=== PATIENT | male | born 1955 | race Caucasian/White ===

== ENCOUNTER 2020-06-17 20:48 | Emergency (ER) | payer OTHER ==
--- OUTSIDE RECORDS SUMMARY | 2020-06-17 20:50 | XMS REPORT | Clinical Summary ---
:1955 Author Organization [facility] Address [address] [place] [address] Care Team Providers Name Role Phone Flako Fernando MD Primary Care Provider Allergies No Known Allergies Medications Medication Sig Dispensed Refills Start Date End Date Status magnesium oxide 500 mg Take 1 tablet by 11 05/07/2016 Active tablet mouth once daily. levothyroxine 0 05/05/2016 Activ e (SYNTHROID, LEVOTHROID) 100 MCG tablet montelukast 0 05/28/2016 Active (SINGULAIR) 10 mg tablet simvastatin (ZOCOR) 40 0 05/05/2016 Active MG tablet coenzyme Q10 100 mg Take 100 mg by 0 Active capsule mouth daily. 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 Last Filed Vital Signs Not on file Plan of Treatment Health Maintenance Due Date Last Done Comments COLONOSCOPY SCREENING 2007 SHINGLES VACCINES (#1) 2007 INFLUENZA VACCINE 07/20/2020 Results Not on fileafter 06/17/2019 Advance Directives For more information, please contact: [phone] Type Date Recorded Patient Green Pipefitter Explanati on Advance Directives, Living Will and Medical Power of Rf Test Technician
--- NOTE | 2020-06-17 22:18 | ER ---
Nurse's Notes [facility] Name: Ismael Kennedy Age: 64 yrs Sex: Male : 1955 Arrival Date: 06/17/2020 Time: 20:51 Bed 13 Private MD: Diagnosis: Displaced fracture of distal phalanx of right lesser toe(s) Presentation: 06/17 21:13 Chief complaint: Patient states: "I dropped a ladder on my foot around noon, I just vc want to make sure nothing is broken.". Coronavirus screen: Client denies travel out of the [place] in the last 14 days. At this time, the client does not indicate any symptoms associated with coronavirus-19. Ebola Screen: No symptoms or risks identified at this time. Initial Sepsis Screen: Does the patient meet any 2 criteria? No. Patient's initial sepsis screen is negative. Does the patient have a suspected source of infection? No. Patient's initial sepsis screen is negative. Risk Assessment: Do you want to hurt yourself or someone else? Patient reports no desire to harm self or others. Onset of symptoms was June 17, 2020 at 12:00. 21:13 Method Of Arrival: Ambulatory vc 21:13 Acuity: AMALIA 4 vc Historical: - Allergies: 21:17 No Known Allergies; vc - Home Meds: 21:17 levothyroxine oral [Active]; omeprazole Oral [Active]; vc - PSHx: 21:17 LOWER BACK; DOUBLE HERNIA REPAIR; JOSÉ MIGUEL FEET RECONSTRUCTION; vc - Immunization history:: Adult Immunizations up to date. - Social history:: Smoking status: Patient denies any tobacco usage or history of. Screenin:30 Abuse screen: Denies threats or abuse. Nutritional screening: No deficits noted. vc Tuberculosis screening: No symptoms or risk factors identified. Fall Risk None identified. Assessment: 21:30 General: Appears in no apparent distress. uncomfortable, slender, well groomed, vc Behavior is calm, cooperative, appropriate for age. Pain: Complains of pain in right third toe, right fourth toe and right fifth toe Pain does not radiate. Pain currently is 7 out of 10 on a pain scale. at worst was 10 out of 10 on a pain scale. Quality of pain is described as burning, pressure, Pain began suddenly, Is continuous, Alleviated by rest. Neuro: Level of Consciousness is awake, alert, obeys commands, Oriented to person, place, time, situation, Appropriate for age. Cardiovascular: Patient's skin is warm and dry. Respiratory: Airway is patent Respiratory effort is even, unlabored, Respiratory pattern is regular, symmetrical. GI: No signs and/or symptoms were reported involving the gastrointestinal system. : No signs and/or symptoms were reported regarding the genitourinary system. Derm: Skin is Bruising that is dark purple, on right fourth toe. 21:49 Reassessment: Patient states he does not need any pain medicine at this moment, he vc would like to wait. 22:41 Reassessment: Patient and/or family updated on plan of care and expected duration. Pain vc level reassessed. Patient states pain is a little worse and would like the pain medicine now. 23:00 Reassessment: Patient waiting on xray disc then will be discharged. vc Vital Signs: 21:13 BP 132 / 72; Pulse 69; Resp 16; Temp 98.5; Pulse Ox 97% ; Weight 108.86 kg; Height 6 vc ft. 4 in. (193.04 cm); Pain 6/10; 21:57 BP 103 / 71; Pulse 63; Resp 16; Pulse Ox 98% on R/A; vc 23:00 BP 109 / 74; Pulse 59; Resp 16; Pulse Ox 98% on R/A; vc 21:13 Body Mass Index 29.21 (108.86 kg, 193.04 cm) vc ED Course: 20:51 Patient arrived in ED. bp1 21:14 Triage completed. vc 21:30 Poly Bob FNP-C [facility]. kb 21:30 David Campbell MD is Attending Physician. kb 21:30 Arm band placed on. vc 21:30 Bed in low position. Call light in reach. Side rails up X 1. Pulse ox on. NIBP on. Door vc closed. Warm blanket given. Ice pack to injury. 21:49 Judy Ibarra, RN is Primary Nurse. vc 21:50 Foot Right 3 View XRAY In Process Unspecified. EDMS 23:00 No provider procedures requiring assistance completed. Patient did not have IV access vc during this emergency room visit. Administered Medications: 22:41 Drug: [place] (7.5 mg-325 mg) 1 tabs {Note: RASS 0 alert and oriented.} Route: PO; vc 22:55 Follow up: Response: No adverse reaction; Medication administered at discharge. vc 22:41 Drug: KeFLEX 500 mg Route: PO; vc 22:55 Follow up: Response: No adverse reaction vc Outcome: 22:17 Discharge ordered by . newton 23:02 Condition: good vc 23:10 Discharged to home ambulatory. vc 23:10 Discharge instructions given to patient. 23:10 Patient left the ED. vc Signatures: Dispatcher [employer] EDMS Poly Bob, HOSPICE PATIENT CARE SECRETARY-C HOSPICE PATIENT CARE SECRETARY-Judy Yee RN RN Raine Ferraro Corrections: (The following items were deleted from the chart) 23:00 22:58 Reassessment: Patient and/or family updated on plan of care and expected vc duration. Pain level reassessed. Patient states pain is a little worse and would like the pain medicine now. vc
--- NOTE | 2020-06-17 22:18 | EDPHYS ---
Physician Documentation [facility] Name: Ismael Kennedy Age: 64 yrs Sex: Male : 1955 Arrival Date: 06/17/2020 Time: 20:51 Bed 13 Private MD: ED Physician David Campbell HPI: 06/17 22:15 This 64 yrs old Male presents to ER via Ambulatory with complaints of Toe kb Injury. 22:15 The patient presents with an injury, pain, swelling, tenderness. The complaints affect kb the right fifth toe and right fourth toe and right third toe. Context: The problem was sustained at home, resulted from a heavy object falling, ladder, the patient can fully bear weight, the patient is able to ambulate. Onset: The symptoms/episode began/occurred today. Modifying factors: The symptoms are alleviated by nothing, the symptoms are aggravated by nothing. Associated signs and symptoms: Pertinent positives: swelling, Pertinent negatives: calf tenderness, fever, nausea, numbness, rash, tingling, vomiting, warmth, weakness. Severity of symptoms: At their worst the symptoms were moderate, in the emergency department the symptoms are unchanged. The patient has not experienced similar symptoms in the past. The patient has not recently seen a physician. Pt had a ladder fall onto right third, forth and fifth toes today.. Historical: - Allergies: 21:17 No Known Allergies; vc - Home Meds: 21:17 levothyroxine oral [Active]; omeprazole Oral [Active]; vc - PSHx: 21:17 LOWER BACK; DOUBLE HERNIA REPAIR; JOSÉ MIGUEL FEET RECONSTRUCTION; vc - Immunization history:: Adult Immunizations up to date. - Social history:: Smoking status: Patient denies any tobacco usage or history of. ROS: 22:09 Constitutional: Negative for fever, chills, and weight loss, Cardiovascular: Negative kb for chest pain, palpitations, and edema, Respiratory: Negative for shortness of breath, cough, wheezing, and pleuritic chest pain, Abdomen/GI: Negative for abdominal pain, nausea, vomiting, diarrhea, and constipation, Back: Negative for injury and pain, Skin: Negative for injury, rash, and discoloration, Neuro: Negative for headache, weakness, numbness, tingling, and seizure. 22:09 MS/extremity: Positive for ecchymosis, pain, swelling, tenderness, of the right fifth toe and right fourth toe and right third toe. Exam: 22:09 Constitutional: This is a well developed, well nourished patient who is awake, alert, kb and in no acute distress. Head/Face: Normocephalic, atraumatic. Chest/axilla: Normal chest wall appearance and motion. Nontender with no deformity. No lesions are appreciated. Cardiovascular: Regular rate and rhythm with a normal S1 and S2. No gallops, murmurs, or rubs. Normal PMI, no JVD. No pulse deficits. Respiratory: Lungs have equal breath sounds bilaterally, clear to auscultation and percussion. No rales, rhonchi or wheezes noted. No increased work of breathing, no retractions or nasal flaring. Abdomen/GI: Soft, non-tender, with normal bowel sounds. No distension or tympany. No guarding or rebound. No evidence of tenderness throughout. Neuro: Awake and alert, GCS 15, oriented to person, place, time, and situation. Cranial nerves II-XII grossly intact. Motor strength 5/5 in all extremities. Sensory grossly intact. Cerebellar exam normal. Normal gait. 22:09 Musculoskeletal/extremity: Extremities: grossly normal except: noted in the right fourth toe: abrasion, ecchymosis, pain, swelling, tenderness, noted in the right fifth toe: abrasion, pain, swelling, ROM: limited active range of motion due to pain, in the right fifth toe and right fourth toe, Circulation is intact in all extremities. Sensation intact. Weight bearing: able to fully bear weight. Vital Signs: 21:13 BP 132 / 72; Pulse 69; Resp 16; Temp 98.5; Pulse Ox 97% ; Weight 108.86 kg; Height 6 vc ft. 4 in. (193.04 cm); Pain 6/10; 21:57 BP 103 / 71; Pulse 63; Resp 16; Pulse Ox 98% on R/A; vc 23:00 BP 109 / 74; Pulse 59; Resp 16; Pulse Ox 98% on R/A; vc 21:13 Body Mass Index 29.21 (108.86 kg, 193.04 cm) vc MDM: 21:31 Patient medically screened. kb 22:09 Data reviewed: vital signs, nurses notes. Data interpreted: Pulse oximetry: on room air kb is 98 %. Interpretation: normal. Counseling: I had a detailed discussion with the patient and/or guardian regarding: the historical points, exam findings, and any diagnostic results supporting the discharge/admit diagnosis, radiology results, the need for outpatient follow up, a orthopedic surgeon, to return to the emergency department if symptoms worsen or persist or if there are any questions or concerns that arise at home. 22:18 ED course: Pt has appt with ortho on Friday to follow up. kb 06/17 21:36 Order name: Foot Right 3 View XRAY kb 06/17 22:08 Order name: Post-op shoe; Complete Time: 22:55 kb Administered Medications: 22:41 Drug: [place] (7.5 mg-325 mg) 1 tabs {Note: RASS 0 alert and oriented.} Route: PO; vc 22:55 Follow up: Response: No adverse reaction; Medication administered at discharge. vc 22:41 Drug: KeFLEX 500 mg Route: PO; vc 22:55 Follow up: Response: No adverse reaction vc Disposition: 06/18 06:14 Co-signature as Attending Physician, David Campbell MD. [email or web address] Disposition: 06/17/20 22:17 Discharged to Home. Impression: Displaced fracture of distal phalanx of right lesser toe(s). - Condition is Stable. - Discharge Instructions: Toe Fracture, [id number]. - Prescriptions for Keflex 500 mg Oral Capsule - take 1 capsule by ORAL route every 8 hours for 10 days; 30 capsule. - Medication Reconciliation Form, Thank You Letter, Antibiotic Education, Prescription Opioid Use form. - Follow up: Private Physician; When: 2 - 3 days; Reason: Recheck today's complaints, Continuance of care, Re-evaluation by your physician. Follow up: Emergency Department; When: As needed; Reason: Worsening of condition. Signatures: Dispatcher [employer] EDPoly Parks FNP-C FNP-Ckb Calcote, Vanessa, RN RN David Montano MD MD [email or web address] Corrections: (The following items were deleted from the chart) 06/17 23:10 22:17 06/17/2020 22:17 Discharged to Home. Impression: Displaced fracture of distal vc phalanx of right lesser toe(s). Condition is Stable. Forms are Medication Reconciliation Form, Thank You Letter, Antibiotic Education, Prescription Opioid Use. Follow up: Private Physician; When: 2 - 3 days; Reason: Recheck today's complaints, Continuance of care, Re-evaluation by your physician. Follow up: Emergency Department; When: As needed; Reason: Worsening of condition. kb
[2020-06-17] MEDS ORDERED: CEPHALEXIN 250 MG CAP ONE (22:30)
[2020-06-17] MEDS ORDERED: HYDROCODONE/APAP 7.5/325 MG TAB ONE (22:49)
--- NOTE | 2020-06-18 08:44 | RAD REPORT ---
EXAM DESCRIPTION: RAD - Foot Right 3 View - 06/17/2020 9:50 pm CLINICAL HISTORY: PAIN, blunt force trauma to the foot, pain not further localized COMPARISON: No comparisons FINDINGS: Comminuted fracture is present at the fourth distal phalanx. Multiple small fracture fragm ents are present without significant distraction or angulation deformity. Cortical changes along the lateral margin of the fifth distal phalanx may be from remote trauma. No additional acute fracture sites confirmed. Hardware is in place from prior first metatarsal surger y. Patient has degenerative change at the first MTP joint. No erosive or destructive bone process. Hein rdware is in place from remote calcaneus fracture repair. Degenerative change present at the tibiotal ar joint space. Mild soft tissue swelling is present. No foreign body. IMPRESSION: Comminuted fracture fourth distal phalanx.
== END 2020-06-17 23:10 | disposition home or self-care (01) ==
LOC: ER 20:48
DX: S92.531A Displaced fracture of distal phalanx of right lesser toe(s), initial encounter for closed fracture (principal); W22.8XXA Striking against or struck by other objects, initial encounter; Y92.009 Unspecified place in unspecified non-institutional (private) residence as the place of occurrence of the external cause; Y93.9 Activity, unspecified
CPT/HCPCS: 99283

== ENCOUNTER 2021-06-02 07:12 | Observation (INO) | payer OTHER ==
--- OUTSIDE RECORDS SUMMARY | 2021-06-02 07:15 | XMS REPORT | Continuity of Care Document ---
:1955 Author Organization [facility] t Address [address] [place] [address] Care Team Providers Name Role Phone Nicola EDWARDS Primary Care Physician Unavailable [facility] Attending Clinician Unavailable Katina ROE, L. Attending Clinician MD KATINA L. Attending Clinician Unavailable Zora Osborn Attending Clinician MD KATINA L. Admitting Clinician Unavailable Payers Payer Name Policy Type Policy Effective Date Expiration Date [facility] ce Number AETNAAETNA PPO [id number] 2000 [facility] OPEN 00:00:00 Hospital [id number] 2000-Present PPO Problems Condition Condition Condition Status Onset Resolution Last Treating Co mments Source Name Details Category Date Date Treatment Clinician Date INCISE Diagnosis Active 2019-102020-09-27 Mem oria FINGER 1-25 04:15:00 l TENDON INCISE 00:00: Ren CARPAL FINGER 00 TUNNEL TENDON RIGH CARPAL TUNNEL RIGH Active 09/13/2020 [facility] [place] UNK Diagnosis Active 2019-102020-09-22 Mem oria 1-25 09:39:00 l UNK 00:00: Ren 00 Active 09/13/2020 [facility] [place] CARPAL Diagnosis Active 2019-102020-08-29 Mem oria TUNNEL 0-30 12:25:00 l RELEASE, CARPAL 00:00: Olaf n LEFT TUNNEL 00 RELEASE, LEFT Active 08/18/2020 [facility] Ren M79.632 - Diagnosis Active 2020-06-28 Memoria PAIN IN 06-20 12:51:00 l LEFT M79.632 00:01: Ren FOREARM - PAIN IN 00 R22 - "LO LEFT FOREARM R22 - "LO Active 06/20/2020 JOHNNY FALLOND [facility] 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 Family History Family Member Diagnosis Comments Start Date Stop Date Source Natural father Rectal cancer [facility] Social History Social Habit Start Date Stop Date Quantity Comments Source Social History 2020-09-26 2020-09-26 [facility] denita 22:06:41 22:06:41 Alcohol intake 2016-09-26 2016-09-26 Current [facility] 00:00:00 00:00:00 non-drinker of Hospital alcohol (finding) Sex Ass[birth year] At [birth year] [facility] 00:00[facility]00 [facility]00 [facility] Smoking Status Start Date Stop Date Source [facility] smoker [facility] Medications Ordered Filled Start Stop Current Ordering Indication Dosage Frequency Signature Comments Components Source Medication Medication Date Date Medication? Clinician (SIG) Name Name sodium,pota Yes Use as Meth jonna ssium,mag 10-[address] sulfates 00:00: Hospita (Suprep 00 l Bowel Prep Kit) 17.5-3.13-1 .6 gram recon soln midazolam 2019-10 No Route: IV, Me moria (ANES) 11-27 Drug form: l 21:09: SOLN, [place] 00 ONCE, Stop date: 09/26/20 15:09:00 DISCHARGE DOOR OPERATOR fentaNYL 2019-10 No Route: IV, Mem oria (ANES) 11-27 Drug form: l 21:09: INJ, ONCE, Ren 00 Stop date: 09/26/20 15:09:00 DISCHARGE DOOR OPERATOR ceFAZolin 2019-10 No Route: IV, Me moria (ANES) 11-27 Drug form: l 21:09: INJ, ONCE, Ren 00 Stop date: 09/26/20 15:09:00 DISCHARGE DOOR OPERATOR propofol 2019-10 No Route: IV, Mem oria (ANES) 11-27 Drug form: l 21:09: INJ, ONCE, Ren Stop date: 09/26/20 15:09:00 DISCHARGE DOOR OPERATOR ondansetron 2019-10 No Route: IV, Memoria (ANES) 2-08 Drug form: l 21:09: INJ, ONCE, Ren 00 Stop date: 09/26/20 15:09:00 DISCHARGE DOOR OPERATOR Lactated 2019-10 No Route: IV, Mem oria Ringers 2-08 Total l Injection 20:20: Volume: Sara nn IV (ANES) 00 1,000, 1000 mL Start date: 09/26/20 14:20:00 DISCHARGE DOOR OPERATOR, Stop date: 09/26/20 15:20:00 DISCHARGE DOOR OPERATOR Calcium 2019-10 No 1,000 mL, Memor ia Chloride 208 Rate: 75 l 0.0014 19:43: ml/hr, MEQ/ML / 00 Infuse Potassium over: 13.3 Chloride hr, Route: 0.004 IV, Dosing MEQ/ML / Weight Sodium 112.318 Chloride kg, Total 0.103 Volume: MEQ/ML / 1,000, Sodium Start Lactate date: 0.028 09/26/20 MEQ/ML 13:43:00 Injectable DISCHARGE DOOR OPERATOR, Solution Duration: 30 day, Stop date: 10/26/20 13:42:00 DISCHARGE DOOR OPERATOR, 2.46, m2, 0 ceFAZolin 2019-10 No Route: IV, Me moria (ANES) 1- Drug form: l 21:40: INJ, ONCE, [place] 00 Stop date: 08/29/20 15:40:00 DISCHARGE DOOR OPERATOR fentaNYL 2019-10 No Route: IV, Mem oria (ANES) 1-10 Drug form: l 21:40: INJ, ONCE, Ren 00 Stop date: 08/29/20 15:40:00 DISCHARGE DOOR OPERATOR propofol 2019-10 No Route: IV, Mem oria (ANES) 1-10 Drug form: l 21:40: INJ, ONCE, [place] Stop date: 08/29/20 15:40:00 DISCHARGE DOOR OPERATOR ondansetron 2019-10 No Route: IV, Memoria (ANES) 1- Drug form: l 21:40: INJ, ONCE, [place] 00 Stop date: 08/29/20 15:40:00 DISCHARGE DOOR OPERATOR midazolam 2019-10 No Route: IV, Me moria (ANES) 1-10 Drug form: l 21:37: SOLN, Ren 00 ONCE, Stop date: 08/29/20 15:37:00 DISCHARGE DOOR OPERATOR Lactated 2020-1 No Route: IV, Mem oria Ringers 1-10 Total l Injection 20:30: Volume: Sara nn IV (ANES) 00 1,000, 1000 mL Start date: 08/29/20 14:30:00 DISCHARGE DOOR OPERATOR, Stop date: 08/29/20 15:30:00 DISCHARGE DOOR OPERATOR Calcium 2019- No 1,000 mL, Memor ia Chloride 1-10 Rate: 75 l 0.0014 18:59: ml/hr, Ren MEQ/ML / 00 Infuse Potassium over: 13.3 Chloride hr, Route: 0.004 IV, Dosing MEQ/ML / Weight Sodium 109.091 Chloride kg, Total 0.103 Volume: MEQ/ML / 1,000, Sodium Start Lactate date: 0.028 08/29/20 MEQ/ML 12:59:00 Injectable DISCHARGE DOOR OPERATOR, Solution Duration: 30 day, Stop date: 09/28/20 12:58:00 DISCHARGE DOOR OPERATOR, 2.43, m2, 0 Sodium 2019- No 1,000 mL, Memori a Chloride -10 Rate: 75 l 0.9% IV 18:59: ml/hr, Ren 1,000 mL 00 Infuse over: 13.3 hr, Route: IV, Dosing Weight 109.091 kg, Total Volume: 1,000, Start date: 08/29/20 12:59:00 DISCHARGE DOOR OPERATOR, Duration: 30 day, Stop date: 09/28/20 12:58:00 DISCHARGE DOOR OPERATOR, 2.43, m2, 0 BAXYL 2019- Yes BAXYL, 1/2 Memori a 03 TEASPOON, l 17:33: PO, Daily, Ren 00 Refill(s) 0 PROSTATE 2019- Yes PROSTATE Memor ia SUPPORT 03 SUPPORT, 2 l 17:32: tab, PO, [place] 00 Every Other Day, Refill(s) 0 KRILL OIL 2019-10 Yes KRILL OIL, Me moria 03 500 mg =, l 17:31: PO, Daily, Ren 00 Refill(s) 0 Calcium 2019- Yes 2 tab, Memoria Citrate 03 CHEW, l 2380 MG / 17:30: Daily, 0 Herm jana Cholecalcif 00 Refill(s) omaira 400 UNT Chewable Tablet [Calcet] Vitamin D3 2019-10 Yes 125 Memoria 1-03 microgram, l 17:29: PO, Daily, [place] 00 0 Refill(s) Aspirin 81 2019-10 Yes 81 mg = 1 Me moria MG Chewable 1-03 tab, CHEW, l Tablet 17:29: Daily, 0 Ren 00 Refill(s) biotin 5000 2019-10 Yes 5,000 Memor ia mcg oral 1-03 microgram l tablet, 17:27: = 1 tab, Olaf n disintegrat 00 PO, Daily, ing 0 Refill(s) omeprazole 2019-10 Yes 40 mg = 1 Me moria 40 mg oral 1-03 cap, PO, l delayed 17:26: Daily, 0 Olaf n release 00 Refill(s) capsule levothyroxi 2019-10 Yes 100 Memori a ne 100 mcg 1-03 microgram l (0.1 mg) 17:26: = 1 tab, Sara nn oral tablet 00 PO, Daily, 0 Refill(s) Probiotic 2019-10 Yes 1 cap, PO, Me moria Formula -03 Daily, 0 l 17:26: Refill(s) [place] 00 sodium,pota 2016-10- No Use as Met hodi ssium,mag 10-[address] sulfates 00:00: 00:00 Hospita (SUPREP 00 :00 l BOWEL PREP KIT) 17.5-3.13-1 .6 gram recon soln omeprazole Yes TAKE 1 Metho di (PriLOSEC) 9-[address] 40 MG 00:00: DAILY Hospita capsule 00 l coenzyme 2015-10 Yes 100mg QD Take 100 Meth jonna Q10 100 mg 2-[address] capsule 20:19: mouth Hospita 08 daily. l montelukast Yes Method i (SINGULAIR) 8-09 st 10 mg 00:00: Hospita tablet 00 l magnesium Yes 1{tbl} QD Take 1 Meth jonna oxide 500 7-[address] mg tablet 00:00: mouth once Ho spita 00 daily. l levothyroxi Yes Method i ne 7-17 st (SYNTHROID, 00:00: Hospit a LEVOTHROID) 00 l 100 MCG tablet simvastatin 2016-0 Yes Method i (ZOCOR) 40 7-17 st MG tablet 00:00: Hospita 00 l Vital Signs Vital Name Observation Time Observation Value Comments Source Respitory Rate 2020-09-26 21:45:00 Memori al Ren Systolic (mm Hg) 2020-09-26 21:45:00 Jason rial Ren Diastolic (mm Hg) 2020-09-26 21:45:00 Mem orial [place] Respitory Rate 2020-09-26 21:30:00 Memori al [place] Systolic (mm Hg) 2020-09-26 21:30:00 Jason rial [place] Diastolic (mm Hg) 2020-09-26 21:30:00 Mem orial [place] Respitory Rate 2020-09-26 21:15:00 Memori al [place] Systolic (mm Hg) 2020-09-26 21:15:00 Jason rial [place] Diastolic (mm Hg) 2020-09-26 21:15:00 Mem orial Ren Height 2020-09-22 16:01:00 193.04 cm [facility] [place] Weight 2020-09-22 16:01:00 [facility] Ren BMI Calculated 2020-09-22 16:01:00 Memori al Ren Height 2020-09-19 22:02:00 193.04 cm [facility] Ren Weight 2020-09-19 22:02:00 [facility] [place] BMI Calculated 2020-09-19 22:02:00 Memori al [place] Respitory Rate 2020-08-29 22:15:00 Memori al [place] Systolic (mm Hg) 2020-08-29 22:15:00 Jason rial [place] Diastolic (mm Hg) 2020-08-29 22:15:00 Mem orial [place] Respitory Rate 2020-08-29 22:00:00 Memori al Ren Systolic (mm Hg) 2020-08-29 22:00:00 Jason rial Ren Diastolic (mm Hg) 2020-08-29 22:00:00 Mem orial [place] Respitory Rate 2020-08-29 21:45:00 Memori al Ren Systolic (mm Hg) 2020-08-29 21:45:00 Jason rial Ren Diastolic (mm Hg) 2020-08-29 21:45:00 Mem orial Ren Height 2020-08-22 16:44:00 193.04 cm [facility] [place] Weight 2020-08-22 16:44:00 [facility] BMI Calculated 2020-08-22 16:44:00 Yudi Wrightann Procedures Procedure Date / Time Performed Performing Clinician Zhane colindres SURGICAL PATHOLOGY 2020-11-17 18:34:00 Bethany Rojo Metho [facility] REQUEST COVID-19 QUALITATIVE 2020-11-13 19:59:00 Bethany Rojo [facility] RT-PCR Carpal tunnel release [facility] Plan of Care Planned Activity Planned Date Details Comments Source Future Scheduled Test COVID-19 VACCINE (1) [facility] [code = COVID-19 VACCINE (1)] Future Scheduled Test Hepatitis C screening [facility] (procedure) [code = 979784063] Future Scheduled Test COLONOSCOPY SCREENING [facility] [code = COLONOSCOPY SCREENING] Future Scheduled Test SHINGLES VACCINES (#1) [facility] [code = SHINGLES VACCINES (#1)] Future Scheduled Test INFLUENZA VACCINE [code [facility] = INFLUENZA VACCINE] Future Scheduled Test GASTROSCOPY (EGD) [code [facility] = GASTROSCOPY (EGD)] Encounters Start End Encounter Admission Attending Care Care Encounter Source Date/Time Date/Time Type Type Clinicians Facility Department ID 2020-12-08 2020-12-08 Refsonia Murphy, 1.2.840.1 [id number] Methodi 00:00:00 00:00:[address] 3.430.2.7 Hospit a .3.461924 l .8 2020-11-17 2020-11-17 Lab Katina 1.2.840.1 [id number] Methodi 11:32:28 11:37:28 Bethany Mayfield 82339.1.1 189 s t 3.430.2.7 Hospit a .3.768872 l .8 2020-11-17 2020-11-17 Outpatient KATINA [facility] [id number] [place] 00:00:00 00:00:00 BETHANY [address] 2020-11-16 2020-11-16 Telephone Jessie Rojo.2.840.1 [id number] Methodi 00:00:00 00:00:00 Bethany [place]field 08666.1.1 059 s t 3.430.2.7 Hospit a .3.779851 l .8 2020-11-13 2020-11-13 Lab Katina, 1.2.840.1 [id number] Methodi 13:33:58 13:48:58 Bethany Mayfield 91400.1.1 631 s t 3.430.2.7 Hospit a .3.755446 l .8 2020-11-13 2020-11-13 Outpatient KATINA, [facility] [id number] [place] 00:00:00 00:00:00 BETHANY [address] 2020-11-13 2020-11-13 Travel 1.2.840.1 1.2.780.914 [id number] Methodi 00:00:00 00:00:[address] 3.430.2.7 0.2.7.3.698 spita .3.760712 084.8 l .8 2020-10-31 2020-10-31 Telephone Carlosmagi, 1.2.840.1 [id number] Methodi 00:00:00 00:00:00 Bethany [place]field 46808.1.1 743 s t 3.430.2.7 Hospit a .3.822765 l .8 2020-10-25 2020-10-25 Telephone Carlosmagi, 1.2.840.1 [id number] Methodi 00:00:00 00:00:00 Bethany [place]field 09170.1.1 535 s t 3.430.2.7 Hospit a .3.571347 l .8 2020-10-25 2020-10-25 Telephone Carlosmagi, 1.2.840.1 [id number] Methodi 00:00:00 00:00:00 Bethany [place]field 34154.1.1 606 s t 3.430.2.7 Hospit a .3.273504 l .8 2020-10-25 2020-10-25 Travel 1.2.840.1 1.2.392.729 [id number] Methodi 00:00:00 00:00:[address] 3.430.2.7 0.2.7.3.698 Ho spita .3.544474 084.8 l .8 2020-10-23 2020-10-23 Telephone Katina, 1.2.840.1 [id number] Methodi 00:00:00 00:00:00 Bethany [place]field 26805.1.1 289 s t 3.430.2.7 Hospit a .3.796040 l .8 2020-10-19 2020-10-19 Telephone Katina, 1.2.840.1 [id number] Methodi 00:00:00 00:00:00 Bethany Mayfield 91132.1.1 948 s t 3.430.2.7 Hospit a .3.771467 l .8 2020-09-26 2020-09-26 [facility] [id number] Memoria 17:23:00 21:59:00 Surgery r [place] 01 [facility] 2020-09-26 2020-09-26 Outpatient Mansour, [facility] [id number] 11:23:00 15:59:[address] 2020-09-26 2020-09-26 Outpatient Mansour, [facility] [id number] 14:30:00 14:30:00 [place] 2020-09-26 2020-09-26 Outpatient MHBL MHBL 7501 MHBL 11:23:00 11:23:00 2020-08-29 2020-08-29 Day [facility] [id number] Memoria 18:19:00 22:18:00 Surgery r [place] 00 [facility] 2020-08-29 2020-08-29 Outpatient Mansour, [facility]PL MHPL [id number] 12:19:00 16:18:[address] 2020-08-29 2020-08-29 Outpatient Mansour, [facility] [id number] 13:30:00 13:30:[address] 2020-08-29 2020-08-29 Outpatient MHBL MHBL 7500 MHBL 12:19:00 12:19:00 2020-06-28 2020-06-29 Outpt Diag nullFlavo [facility] [id number] Memoria 17:16:00 04:59:00 Services r Outpatient 00 l Imaging Ren [place] 2020-06-28 2020-06-28 Outpatient Anurag, OIP OIP [id number] 12:16:00 23:59:00 Vick 00 [place] Results Test Description Test Time Test Comments Results Result Comments Source Surgical pathology request 2020-11-20 17:09:49 Test Item Value Reference Range Interpretation Comme nts Case number (test code = 3575218) [id number] Surgical pathology report (test code = See link below for PDF Lab R eport 1945) Result status (test code = 0962301) This is Final Report for [id number] 2096-2 [id number] 02:19:23 Test Item Value Reference Range Interpretation Comments Interpretation (test code = 3510599) COVID-19 qualitative RT-PCR Not-Detected Not-Detected result (test code = 15176-5) COVID-19 qualitative RT-PCR See link below for (test code = 7070) PDF [facility] RNA [Presence] in Respiratory specimen by BRIAN with probe [id number] 20:18:56 Test Item Value Reference Range Interpretation Comments SARS-CoV-2 (COVID-19) RNA Not detected Not-Detected [Presence] in Respiratory specimen by BRIAN with probe detection (test code = 97277-5) [id number] 15:59:00Not Detected *NA*(09/22/20 9:59 AM)[facility] [id number] 15:32:00Not Detected (08/25/20 9:32 AM)[facility]
[2021-06-02] MEDS ORDERED: dexAMETHasone 10 MG/ML VIAL ONE (09:32)
[2021-06-02 09:46] LABS: Urine Blood Trace-intact (Negative); Urine Glucose Trace (Negative); Urine Protein 1+ (Negative)
[2021-06-02 09:51] LABS: Absolute Lymphocytes (CBC) 0.2 K/uL (0.7-4.9); Basophils % 0.2 % (0-1.3); Lymphocytes % 5.3 % (15.3-44.8); MPV 9.9 fL (7.6-11.3); RBC Red Blood Cell Count 5.59 M/uL (4.33-5.43)
--- NOTE | 2021-06-02 10:04 | RAD REPORT ---
EXAM DESCRIPTION: RAD - Chest Single View - 06/02/2021 9:09 am CLINICAL HISTORY: SOB, COVID positive COMPARISON: October 2015 TECHNIQUE: AP portable chest image was obtained 06/02/2021 9:09 am . FINDINGS: Focal airspace opacification is seen in the lower left lung field and there is some mild a irspace opacification on the right. No failure or volume overload. Findings are consistent with a mil d COVID-19 pneumonia. Heart and vasculature are normal. No measurable pleural effusion and no pneumothorax. No acute bony abnormality seen. No acute aortic findings suspected. IMPRESSION: Mild COVID-19 pneumonia pattern, most pronounced in the left base.
[2021-06-02 10:07] LABS: Protime INR 1.14
[2021-06-02] MEDS ORDERED: ACETAMINOPHEN 500 MG TAB ONE ×2 (10:13→22:21)
[2021-06-02] MEDS ORDERED: HYDROCODONE/CHLORPHEN 5 ML/OSYR ONE (10:14)
[2021-06-02 10:38] LABS: ALT/SGPT 77 U/L (12-78); AST/SGOT 58 U/L (15-37); Albumin 3.5 g/dL (3.4-5.0); Alkaline Phosphatase 67 U/L (45-117); BUN Blood Urea Nitrogen 24 mg/dL (7-18); Bicarbonate 26 mmol/L (21-32); Bilirubin Direct 0.4 mg/dL (0-0.2); Bilirubin Total 0.7 mg/dL (0.2-1.0); Ferritin 955.9 ng/mL (26-388); Glucose Level 132 mg/dL (74-106); Lipase 315 U/L (73-393); Potassium 3.5 mmol/L (3.5-5.1); Protein, Total 7.3 g/dL (6.4-8.2); Sodium Level 131 mmol/L (136-145); Troponin (Emerg Dept Use Only) < 0.02 ng/mL (0.0-0.045)
--- NOTE | 2021-06-02 11:07 | EDPHYS ---
Physician Documentation [facility] Name: Ismael Kennedy Age: 65 yrs Sex: Male : 1955 Arrival Date: 06/02/2021 Time: 07:12 Bed 4 Private MD: ED Physician Fito Fay HPI: 06/02 09:19 This 65 yrs old Male presents to ER via Ambulatory with complaints of Covid + pm1 Dif Breathing. 09:19 The patient has shortness of breath at rest. Onset: The symptoms/episode began/occurred pm1 today. Duration: The symptoms are continuous. The patient's shortness of breath is alleviated by nothing. Associated signs and symptoms: Pertinent positives: productive cough, fever, nausea, Pertinent negatives: chest pain, vomiting, Diarrhea. Severity of symptoms: in the emergency department the symptoms are worse. The patient has not experienced similar symptoms in the past. The patient has been recently seen by a physician: the patient's primary care provider, with similar presenting complaints, was prescribed inhaler, Patient's use of inhaler at home without any effectiveness. Patient presents to ER with complaints of shortness of breath. Patient was onset of symptoms of Covid on 8 3, cough, body aches, decreased appetite. Starting this morning patient with onset of shortness of breath. On his home pulse ox he was recording saturations in the 80s. Historical: - Allergies: 07:18 No Known Allergies; em - PMHx: 07:18 Hypercholesterolemia; em - Immunization history:: Client reports having NOT received the Covid vaccine. - Social history:: Smoking status: Patient denies any tobacco usage or history of. ROS: 09:21 Eyes: Negative for injury, pain, redness, and discharge, ENT: Negative for injury, pm1 pain, and discharge, Cardiovascular: Negative for chest pain, palpitations, and edema. 09:21 Constitutional: Positive for body aches, fever, poor PO intake. 09:21 Respiratory: Positive for cough, shortness of breath. 09:21 MS/Extremity: Negative for injury and deformity, Skin: Negative for injury, rash, and pm1 discoloration. 09:21 Neuro: Negative for headache, weakness, numbness, tingling, and seizure. 09:21 Abdomen/GI: Positive for nausea, Negative for abdominal pain, vomiting, diarrhea. 09:21 Back: Positive for Chronic low back pain. 09:21 All other systems are negative. pm1 Exam: 09:21 Constitutional: This is a well developed, well nourished patient who is awake, alert, pm1 and in no acute distress. Head/Face: Normocephalic, atraumatic. 09:21 Skin: Warm, dry with normal turgor. Normal color with no rashes, no lesions, and no evidence of cellulitis. MS/ Extremity: Pulses equal, no cyanosis. Neurovascular intact. Full, normal range of motion. 09:21 Eyes: Exam is negative for acute changes, Extraocular movements: no acute changes, Conjunctiva: normal, no injection. 09:21 ENT: Exam is negative for acute changes, Mouth: no acute changes, Lips: normal, Oral mucosa: normal, pink and intact, moist. 09:21 Cardiovascular: Exam negative for acute changes, Rate: normal, Rhythm: regular, Pulses: no pulse deficits are appreciated, Heart sounds: normal, normal S1and S2, Edema: is not appreciated. 09:21 Respiratory: mild respiratory distress is noted, Respirations: tachypnea, that is mild, Breath sounds: decreased breath sounds, are heard in the right posterior lower lobe. 09:21 Abdomen/GI: Exam negative for acute changes, Inspection: abdomen appears normal, Palpation: abdomen is soft and non-tender, in all quadrants. 09:21 Neuro: Exam negative for acute changes, Orientation: is normal, Mentation: is normal, Motor: is normal, moves all fours. Vital Signs: 07:16 BP 121 / 64; Pulse 79; Resp 28; Temp 101; Pulse Ox 88% on R/A; Weight 104.33 kg; Height em 6 ft. 4 in. (193.04 cm); 09:15 BP 143 / 113; Pulse 73; Resp 22; Pulse Ox 95% on 2 lpm NC; Weight 104 kg; Height 6 ft. ld1 2 in. (187.96 cm); Pain 0/10; 10:00 BP 111 / 67; Pulse 67; Resp 20; Pulse Ox 96% on 2 lpm NC; ld1 11:00 BP 98 / 65; Pulse 67; Resp 19; Pulse Ox 95% on 2 lpm NC; ld1 11:55 BP 109 / 72; Pulse 60; Resp 15; Pulse Ox 94% on 2 lpm NC; ld1 09:15 Body Mass Index 29.44 (104.00 kg, 187.96 cm) ld1 MDM: 08:02 Patient medically screened. pm1 09:03 ED course: Patient prefers to sit on bedside chair due to chronic back pain issues.. pm1 09:41 Data reviewed: vital signs. Data interpreted: Pulse oximetry: on 2L(s) per nasal pm1 canula, is 93 %. Interpretation: acceptable. 09:44 ED course: Reports feeling better with oxygen therapy, but is bothered by his cough. pm1 Will give patient medication to address cough and fever. 11:04 Counseling: I had a detailed discussion with the patient and/or guardian regarding: the pm1 historical points, exam findings, and any diagnostic results supporting the discharge/admit diagnosis, lab results, radiology results, the need for further work-up and treatment in the hospital, Patient with dehydration and hypoxia due to Covid pneumonia, therefore will admit the patient for oxygen therapy. Patient reported pulse ox of 80% at home on patient arrival to the ER he had 88% O2 saturation. Patient improved with nasal cannula 2 L 93 to 95%. 06/02 08:14 Order name: BMP; Complete Time: 10:47 pm06/02 08:14 Order name: Blood Culture Adult (2) pm1 06/02 08:14 Order name: C-Reactive Protein; Complete Time: 10:47 pm06/02 08:14 Order name: CBC with Diff; Complete Time: 13:06 pm06/02 08:14 Order name: D-Dimer; Complete Time: 10:25 pm06/02 08:14 Order name: Ferritin; Complete Time: 10:47 pm06/02 08:14 Order name: Flu; Complete Time: 10:59 pm06/02 08:14 Order name: LFT's; Complete Time: 10:47 pm06/02 08:14 Order name: Lactate; Complete Time: 10:25 pm06/02 08:14 Order name: Lipase; Complete Time: 10:47 pm1 06/02 08:14 Order name: PT-INR; Complete Time: 10:25 pm06/02 08:14 Order name: Procalcitonin; Complete Time: 11:20 pm1 08/14 08:14 Order name: Ptt, Activated; Complete Time: 10:25 pm1 06/02 08:14 Order name: Strep; Complete Time: 10:04 pm1 06/02 08:14 Order name: Troponin (emerg Dept Use Only); Complete Time: 10:47 pm1 06/02 09:46 Order name: Urine Dipstick-Ancillary EDMS 06/02 10:04 Order name: Throat Culture EDMS 06/02 12:33 Order name: CBC Smear Scan; Complete Time: 13:06 EDMS 06/02 15:42 Order name: Basic Metabolic Panel EDMS 06/02 15:42 Order name: Basic Metabolic Panel EDMS 06/02 15:42 Order name: Basic Metabolic Panel EDMS 06/02 15:42 Order name: Basic Metabolic Panel EDMS 06/02 15:42 Order name: Magnesium EDMS 06/02 15:42 Order name: Magnesium EDMS 06/02 15:42 Order name: Magnesium EDMS 06/02 15:42 Order name: Magnesium EDMS 06/02 15:42 Order name: T4 Free EDMS 06/02 15:42 Order name: T4 Free EDMS 06/02 15:42 Order name: Thyroid Stimulating Hormone EDMS 06/02 15:43 Order name: Urinalysis EDMS 06/02 08:14 Order name: CXR XRAY; Complete Time: 10:25 pm1 06/02 08:14 Order name: EKG; Complete Time: 08:15 pm06/02 08:14 Order name: Cardiac monitoring; Complete Time: 09:46 pm1 06/02 08:14 Order name: Droplet/Contact Precautions; Complete Time: 09:46 pm06/02 08:14 Order name: EKG - Nurse/Tech; Complete Time: 09:46 pm1 06/02 08:14 Order name: IV Start; Complete Time: 09:46 pm1 06/02 08:14 Order name: Labs collected and sent; Complete Time: 09:46 pm1 06/02 08:14 Order name: O2 Per Protocol; Complete Time: 09:46 pm1 06/02 08:14 Order name: O2 Sat Monitoring; Complete Time: 09:46 pm1 06/02 08:14 Order name: Urine Dipstick-Ancillary (obtain specimen); Complete Time: 09:46 pm1 06/02 15:41 Order name: Heart Healthy EDMS 06/02 15:42 Order name: Patient Safety Orders EDMS 06/02 15:43 Order name: Respiratory Therapy Consult EDMS 06/02 15:43 Order name: Social Service Consult EDMO 06/02 15:43 Order name: CBC with Automated Diff EDMS 06/02 15:43 Order name: CBC with Automated Diff EDMS 06/02 15:43 Order name: CBC with Automated Diff EDMS 06/02 15:43 Order name: CBC with Automated Diff EDMS 06/02 15:43 Order name: Thyroid Stimulating Hormone EDMS 06/02 17:03 Order name: Glucose, Ancillary Testing; Complete Time: 17:31 EDMS Administered Medications: 09:46 Drug: Decadron - Dexamethasone 10 mg Route: IVP; Site: right antecubital; ld1 09:52 Drug: Tussionex Pennkinetic ER (chlorpheniramine-hydrocodone) Suspension 5 ml Route: PO;ld1 09:53 Drug: Tylenol 1000 mg Route: PO; ld1 Disposition: 06/03 18:36 Co-signature as Attending Physician, Fito Fay MD I agree with the assessment and tw4 plan of care. Disposition Summary: 06/02/21 11:07 Hospitalization Ordered Hospitalization Status: Inpatient Admission pm1 Provider: Efraín Valdovinos pm1 Condition: Stable pm1 Problem: new pm1 Symptoms: have improved pm1 Bed/Room Type: Standard pm1 Location: [facility] ER HOLD(06/02/21 19:21) dw Room Assignment: ERHOLD-(06/02/21 19:21) dw Diagnosis - Dehydration pm1 - Pneumonia due to SARS-associated coronavirus pm1 - Hypoxia pm1 Forms: - Medication Reconciliation Form pm1 - SBAR form pm1 Signatures: Dispatcher [employer] [facility] Tia Martinez RN RN dw Malik Miller RN RN em Jesus Jordan, RFID ANALYST RFID ANALYST pm1 Fito Fay MD MD tw4 Janna Gayle RN RN ld1 Corrections: (The following items were deleted from the chart) 06/02 07:19 07:18 Allergies: No Known Allergies; em em 07:19 07:18 PMHx: None; em em 19:21 11:07 Telemetry/MedSurg (Inpatient) pm1 dw 19:21 11:07 pm1 dw
--- NOTE | 2021-06-02 11:07 | ER ---
Nurse's Notes [facility] Name: Ismael Kennedy Age: 65 yrs Sex: Male : 1955 Arrival Date: 06/02/2021 Time: 07:12 Bed 4 Private MD: Diagnosis: Dehydration;Pneumonia due to SARS-associated coronavirus;Hypoxia Presentation: 06/02 07:16 Chief complaint: Patient states: reports shortness of breath and fever since testing em positive for covid on 05-22/ reports SPO2 at home has been in the low 80s. Coronavirus screen: chills, cough unrelated to allergies, difficulty breathing, fever, headache, loss of taste or smell. Ebola Screen: Patient negative for fever greater than or equal to 101.5 degrees Fahrenheit, and additional compatible Ebola Virus Disease symptoms Patient denies exposure to infectious person. Patient denies travel to an Ebola-affected area in the 21 days before illness onset. No symptoms or risks identified at this time. Initial Sepsis Screen: Does the patient meet any 2 criteria? No. Patient's initial sepsis screen is negative. Does the patient have a suspected source of infection? Yes: Productive cough/pneumonia. Risk Assessment: Do you want to hurt yourself or someone else? Patient reports no desire to harm self or others. Onset of symptoms was June 02, 2021. 07:16 Method Of Arrival: Ambulatory em 07:16 Acuity: AMALIA 2 em Historical: - Allergies: 07:18 No Known Allergies; em - PMHx: 07:18 Hypercholesterolemia; em - Immunization history:: Client reports having NOT received the Covid vaccine. - Social history:: Smoking status: Patient denies any tobacco usage or history of. Screenin:15 Abuse screen: Denies threats or abuse. Denies injuries from another. Nutritional ld1 screening: No deficits noted. Tuberculosis screening: No symptoms or risk factors identified. Fall Risk None identified. Assessment: 09:15 General: Appears in no apparent distress. comfortable, Behavior is calm, cooperative, ld1 appropriate for age. 09:15 Pain: Denies pain. Neuro: Level of Consciousness is awake, alert, obeys commands, ld1 Oriented to person, place, time, situation, Appropriate for age. Cardiovascular: Capillary refill < 3 seconds Patient's skin is warm and dry. Rhythm is sinus rhythm. Respiratory: Airway is patent Respiratory effort is even, unlabored, Respiratory pattern is regular, symmetrical. GI: Abdomen is flat, non-distended. : No signs and/or symptoms were reported regarding the genitourinary system. EENT: No signs and/or symptoms were reported regarding the EENT system. Derm: No signs and/or symptoms reported regarding the dermatologic system. Musculoskeletal: No signs and/or symptoms reported regarding the musculoskeletal system. 11:51 Reassessment: Patient appears in no apparent distress at this time. Patient and/or ld1 family updated on plan of care and expected duration. Pain level reassessed. Patient is alert, oriented x 3, equal unlabored respirations, skin warm/dry/pink. Vital Signs: 07:16 BP 121 / 64; Pulse 79; Resp 28; Temp 101; Pulse Ox 88% on R/A; Weight 104.33 kg; Height em 6 ft. 4 in. (193.04 cm); 09:15 BP 143 / 113; Pulse 73; Resp 22; Pulse Ox 95% on 2 lpm NC; Weight 104 kg; Height 6 ft. ld1 2 in. (187.96 cm); Pain 0/10; 10:00 BP 111 / 67; Pulse 67; Resp 20; Pulse Ox 96% on 2 lpm NC; ld1 11:00 BP 98 / 65; Pulse 67; Resp 19; Pulse Ox 95% on 2 lpm NC; ld1 11:55 BP 109 / 72; Pulse 60; Resp 15; Pulse Ox 94% on 2 lpm NC; ld1 09:15 Body Mass Index 29.44 (104.00 kg, 187.96 cm) ld1 ED Course: 07:12 Patient arrived in ED. ds1 07:18 Triage completed. em 07:18 Arm band placed on. em 07:59 Jesus Jordan NP is PHCP. pm1 07:59 Fito Fay MD is Attending Physician. pm1 09:11 CXR XRAY In Process Unspecified. EDMS 09:15 Patient has correct armband on for positive identification. Bed in low position. Call ld1 light in reach. Side rails up X2. application developer on. Pulse ox on. NIBP on. Door closed. Noise minimized. Warm blanket given. 09:15 No provider procedures requiring assistance completed. Inserted saline lock: 20 gauge ld1 in right antecubital area, using aseptic technique. Blood collected. 09:45 Janna Gayle, DAGOBERTO is Primary Nurse. ld1 11:06 Efraín Valdovinos DO is Hospitalizing Provider. pm1 15:02 Primary Nurse role handed off by Janna Gayle, DAGOBERTO león 15:02 Niyah Wahl, DAGOBERTO is Primary Nurse. zb Administered Medications: 09:46 Drug: Decadron - Dexamethasone 10 mg Route: IVP; Site: right antecubital; ld1 09:52 Drug: Tussionex Pennkinetic ER (chlorpheniramine-hydrocodone) Suspension 5 ml Route: PO;ld1 09:53 Drug: Tylenol 1000 mg Route: PO; ld1 Outcome: 11:07 Decision to Hospitalize by Provider. pm1 08 14:39 Patient left the ED. halle Signatures: Dispatcher [employer] EDMalik Loja RN RN Kimber Chacko ds1 Jesus Jordan, IAM HAT BLOCKING MACHINE OPERATOR pm1 Denny Sal RN RN jd3 Brown, Zipporah, RN RN zJanna Fontenot RN RN ld1 Corrections: (The following items were deleted from the chart) 06/02 07:19 07:18 Allergies: No Known Allergies; em em 07 07:18 PMHx: None; em em 11:55 09:15 BP 143 / 113; Pulse 73bpm; Resp 22bpm; Pulse Ox 95% RA; 104 kg; Height 6 ft. 2 ld1 in.; BMI: 29.4; Pain 0/10; ld1
[2021-06-02] MEDS ORDERED: NA CHLORIDE 0.9% 1,000 ML ONE ×2 (12:04→17:59)
--- NOTE | 2021-06-02 12:26 | P.HP ---
Certification for Inpatient Patient admitted to: Observation With expected LOS: <2 Midnights Patient will require the following post-hospital care: None Practitioner: I am a practitioner with admitting privileges, knowledge of patient current condition, hospital course, and medical plan of care. Services: Services provided to patient in accordance with Admission requirements found in Title 42 Section 412.3 of the Code of Federal Regulations Patient History Date of Service: 06/02/21 Primary Care Provider: Dr. Naranjo; Cardiology-Dr. Fierro Reason for admission: Shortness of breath History of Present Illness: 65-year-old male with history of hypertension, hyperlipidemia, hypothyroidism, and GERD. Patient presented to the emergency room with increasing shortness of breath. Patient was diagnosed with COVID-19 recently. He has noted increasing shortness of breath as of late. Increased fatigue, fever, chills, body aches noted. He has had poor oral intake and hydration as well. He was recently seen by his PCP. He was given an inhaler and steroid. Patient came to the ER for further evaluation. In the ER patient was found to be hypoxic with his room air saturations around 86 to 88%. Patient appeared dehydrated. White count 3.5, hemoglobin 15. Platelet count 118. Sodium 131, potassium 3.5. BUN of 24, creatinine 1.21 with a GFR 61. Glucose 132. Ferritin 955, CRP 42. Procalcitonin 0.17. Chest x-ray shows mild Covid 19 pneumonia pattern. Patient given IV fluids and Decadron in the ER. Patient admitted for observation. - Past Medical/Surgical History -: Hypertension -: Hyperlipidemia -: Hypothyroidism -: GERD -: Back surgery -: Double hernia surgery -: Ankle surgery Psychosocial/ Personal History: Patient - Family History Family History: Reviewed- Non-Contributory - Social History Smoking Status: Never smoker Alcohol use: No CD- Drugs: No Caffeine use: No Place of Residence: Home Review of Systems General: Fever, Chills, Weakness, Malaise Eyes: Unremarkable ENT: Nose Congestion, As per HPI Respiratory: Shortness of Breath, SOB with Excertion, As per HPI Cardiovascular: Unremarkable Gastrointestinal: Unremarkable Genitourinary: Unremarkable Musculoskeletal: Unremarkable Integumentary: Unremarkable Neurological: Weakness, As per HPI Lymphatics: Unremarkable Physical Examination - Physical Exam General: Alert, In no apparent distress, Oriented x3, Cooperative HEENT: Atraumatic, Normocephalic Neck: Supple Respiratory: Other (Decreased to the bases bilateral. Currently on 2 L per nasal cannula. Clear anteriorly) Cardiovascular: Normal pulses, Regular rate/rhythm Gastrointestinal: Normal bowel sounds, No tenderness, No masses, No rebound, No guarding Musculoskeletal: No erythema, No tenderness, No warmth Integumentary: No tenderness/swelling Neurological: Normal speech, Normal strength at 5/5 x4 extr, Normal tone, Normal affect - Studies Laboratory Data (last 24 hrs) 06/02/21 09:35: PT 13.1 H, INR 1.14, APTT 31.3 06/02/21 09:35: WBC 3.50 L, Hgb 15.6, Hct 46.0, Plt Count 118 L 06/02/21 09:35: Sodium 131 L, Potassium 3.5, BUN 24 H, Creatinine 1.21, Glucose 132 H, Total Bilirubin 0.7, AST 58 H, ALT 77, Alkaline Phosphatase 67, Lipase 315 Microbiology Data (last 24 hrs): 06/02/21 09:28 Nasopharnyx Influenza Type A Antigen Screen - Final 06/02/21 09:28 Nasopharnyx Influenza Type B Antigen Screen - Final 06/02/21 09:28 Throat Group A Streptococcus Rapid Screen - Final Assessment and Plan - Plan COVID: Positive, unvaccinated Chest x-ray: COMPARISON: October 2015 TECHNIQUE: AP portable chest image was obtained 06/02/2021 9:09 am . FINDINGS: Focal airspace opacification is seen in the lower left lung field and there is some mild airspace opacification on the right. No failure or volume overload. Findings are consistent with a mild COVID-19 pneumonia. Heart and vasculature are normal. No measurable pleural effusion and no pneumothorax. No acute bony abnormality seen. No acute aortic findings suspected. IMPRESSION: Mild COVID-19 pneumonia pattern, most pronounced in the left base. Physical exam: Physical Exam: GENERAL: The patient is a well-developed, well-nourished, in no apparent distress. Alert and oriented x3. Patient appears dehydrated. VITAL SIGNS: Reviewed HEENT: Head is normocephalic and atraumatic. Extraocular muscles are intact. Pupils are equal, round, and reactive to light and accommodation. Nares patent. Oral pharyngeal area dry NECK: Supple. No carotid bruits. No lymphadenopathy or thyromegaly. LUNGS: Decreased breath sounds bilateral but good air movement anteriorly. Currently on 2 L per nasal cannula. HEART: Regular rate and rhythm, no appreciable gallops, rubs, murmurs or extra heart sounds ABDOMEN: Soft, nontender, and nondistended. Positive bowel sounds. No hepatosplenomegaly was noted. EXTREMITIES: Without any cyanosis, clubbing, rash, lesions or peripheral edema. NEUROLOGIC: The patient is oriented to person, place and time. Strength and sensation are grossly intact. Face is symmetric. SKIN: Normal color, turgor and temperature. No ulcerations or rashes noted. Impression: Dyspnea secondary to bilateral Covid pneumonia with hypoxia, unvaccinated Acute renal injury likely from dehydration Hypertension Hyperlipidemia GERD Plan: Dyspnea secondary to bilateral Covid pneumonia with hypoxia, unvaccinated: Patient will be admitted for further evaluation and treatment. We will continue with IV steroids, supplements. Currently stable on 2 L per nasal cannula. Provide ivermectin. Recheck chest x-ray tomorrow. We will also provide IV fluids. Restart home medication with parameters. Will start DVT prop hylaxisLovenox. Will provide medication for cough. Will provide supplementation to increase his oral intake. Anticipate continued improvement. Will monitor CRP and ferritin. Respiratory consulted to help wean off oxygen. Possible home tomorrow with home oxygen if significantly improved without significant desaturation. Acute renal injury likely from dehydration: We will provide IV fluids in the emergency room. Continue with IV fluid hydration. Encourage oral intake. Hypertension: Restart metoprolol with parameters in place. Hyperlipidemia: Obtain restart home medication GERD: Obtain home medication. Will provide medication. Hypothyroidism: Will check TSH and free T4. Will need to obtain and restart home medication. Code Status: Full Code DVT prophylaxis: Lovenox Advanced Care Planning-30 minutes: Anticipate home as early as tomorrow with home oxygen. Discharge Plan: Home Plan to discharge in: 24 Hours - Advance Directives Does patient have a Living Will: No Does patient have a Durable POA for Healthcare: No - Code Status/Comfort Care Code Status Assessed: Yes (Patient is full code) Time Spent Managing Pts Care (In Minutes): 55
[2021-06-02 12:33] LABS: Platelet Estimate DECR; White Blood Cell Scan OK (OK)
[2021-06-02 12:34] LABS: Blood Morphology Comment NOT SEEN (NOT SEEN)
[2021-06-02] MEDS: ENSURE HIGH PROTEIN 237 ML CAN PO SCH ×2 (15:40→21:00)
[2021-06-02] MEDS: ASCORBIC ACID 500 MG TABLET PO SCH ×3 (15:40→21:00)
[2021-06-02] MEDS ORDERED: ONDANSETRON 4 MG/2 ML VIAL IV PRN (15:40)
[2021-06-02] MEDS: NA CHLORIDE 0.9% 1,000 ML IV SCH (15:40)
[2021-06-02] MEDS ORDERED: ACETAMINOPHEN 500 MG TAB PO PRN (15:40)
[2021-06-02] MEDS: METHYLPREDNISOLONE 40 MG INJ IV SCH (17:00)
[2021-06-02] MEDS: GUAIFENESIN/CODEINE 5ML UCUP PO PRN ×2 (17:26→22:01)
[2021-06-02] MEDS: METOPROLOL TAR 25 MG TAB PO SCH (17:28)
[2021-06-02] MEDS ORDERED: METHYLPREDNISOLONE 40 MG INJ ONE ×2 (17:58→20:14)
[2021-06-02] MEDS ORDERED: ASCORBIC ACID 500 MG TABLET ONE ×2 (17:58→20:13)
[2021-06-02] MEDS ORDERED: guaiFENesin 100 MG/5 ML UCUP ONE (17:59)
[2021-06-02 18:48] VITALS: BMI 28.0
[2021-06-02] MEDS ORDERED: FAMOTIDINE 20 MG TAB ONE (20:14)
[2021-06-02] MEDS ORDERED: ATORVASTATIN 20 MG TAB ONE (20:14)
[2021-06-02] MEDS ORDERED: ATORVASTATIN 10 MG TAB PO SCH (21:00)
[2021-06-02] MEDS: FAMOTIDINE 20 MG TAB PO SCH (21:00)
[2021-06-02] MEDS: THIAMINE HCL 100 MG TABLET PO SCH (21:00)
[2021-06-02] MEDS ORDERED: GUAIFENESIN/CODEINE 5ML UCUP ONE (22:21)
[2021-06-03] MEDS: METHYLPREDNISOLONE 40 MG INJ IV SCH ×2 (01:00→09:00)
[2021-06-03 04:03] LABS: Absolute Lymphocytes (CBC) 0.4 K/uL (0.7-4.9); Basophils % 0.1 % (0-1.3); Hematocrit 40.7 % (39.6-49.0); Lymphocytes % 13.6 % (15.3-44.8); MPV 9.7 fL (7.6-11.3); RBC Red Blood Cell Count 4.93 M/uL (4.33-5.43)
[2021-06-03 04:38] LABS: Magnesium 2.5 mg/dL (1.8-2.4); Thyroid Stimulating Hormone 0.037 uIU/mL (0.360-3.740)
[2021-06-03] MEDS: METOPROLOL TAR 25 MG TAB PO SCH (06:00)
[2021-06-03] MEDS ORDERED: METOPROLOL TAR 25 MG TAB ONE (06:50)
[2021-06-03] MEDS ORDERED: THIAMINE HCL 100 MG TABLET ONE (08:55)
[2021-06-03] MEDS ORDERED: ASCORBIC ACID 500 MG TABLET ONE ×2 (08:55→13:28)
[2021-06-03] MEDS ORDERED: VITAMIN D 1000 UNIT TAB ONE (08:56)
[2021-06-03] MEDS ORDERED: METHYLPREDNISOLONE 40 MG INJ ONE (08:56)
[2021-06-03] MEDS ORDERED: ZINC SULFATE 220 MG CAP ONE (08:56)
[2021-06-03] MEDS ORDERED: FAMOTIDINE 20 MG TAB ONE (08:56)
[2021-06-03] MEDS ORDERED: ENOXAPARIN 40 MG/0.4 ML SQ ONE (08:57)
[2021-06-03] MEDS ORDERED: GUAIFENESIN/CODEINE 5ML UCUP ONE (08:59)
[2021-06-03] MEDS ORDERED: ZINC SULFATE 220 MG CAP PO SCH (09:00)
[2021-06-03] MEDS: ENSURE HIGH PROTEIN 237 ML CAN PO SCH ×2 (09:00→13:10)
[2021-06-03] MEDS ORDERED: IVERMECTIN 3 MG TABLET PO SCH (09:00)
[2021-06-03] MEDS ORDERED: VITAMIN D 1000 UNIT TAB PO SCH (09:00)
[2021-06-03] MEDS ORDERED: ENOXAPARIN 40 MG/0.4 ML SQ SCH (09:00)
[2021-06-03] MEDS: ASCORBIC ACID 500 MG TABLET PO SCH ×2 (09:00→13:00)
[2021-06-03] MEDS: FAMOTIDINE 20 MG TAB PO SCH (09:00)
[2021-06-03] MEDS: THIAMINE HCL 100 MG TABLET PO SCH (09:00)
[2021-06-03] MEDS: GUAIFENESIN/CODEINE 5ML UCUP PO PRN (09:04)
--- NOTE | 2021-06-03 09:26 | P.DS ---
Admission Date: 06/02/21 Discharge Date: 06/03/21 Primary Care Provider: Dr. Naranjo; Cardiology-Dr. Fierro Disposition: ROUTINE DISCHARGE Discharge Condition: GOOD Reason for Admission: Shortness of breath Consultations: none Procedures: COVID: Positive, unvaccinated Chest x-ray: COMPARISON: October 2015 TECHNIQUE: AP portable chest image was obtained 06/02/2021 9:09 am . FINDINGS: Focal airspace opacification is seen in the lower left lung field and there is some mild airspace opacification on the right. No failure or volume overload. Findings are consistent with a mild COVID-19 pneumonia. Heart and vasculature are normal. No measurable pleural effusion and no pneumothorax. No acute bony abnormality seen. No acute aortic findings suspected. IMPRESSION: Mild COVID-19 pneumonia pattern, most pronounced in the left base. Medical problem list: Dyspnea secondary to bilateral Covid pneumonia with hypoxia, unvaccinated Acute renal injury likely from dehydration Hypertension Hyperlipidemia GERD Hypothyroidism Brief History of Present Illness: 65-year-old male with history of hypertension, hyperlipidemia, hypothyroidism, and GERD. Patient presented to the emergency room with increasing shortness of breath. Patient was diagnosed with COVID-19 recently. He has noted increasing shortness of breath as of late. Increased fatigue, fever, chills, body aches noted. He has had poor oral intake and hydration as well. He was recently seen by his PCP. He was given an inhaler and steroid. Patient came to the ER for further evaluation. In the ER patient was found to be hypoxic with his room air saturations around 86 to 88%. Patient appeared dehydrated. White count 3.5, hemoglobin 15. Platelet count 118. Sodium 131, potassium 3.5. BUN of 24, creatinine 1.21 with a GFR 61. Glucose 132. Ferritin 955, CRP 42. Procalcitonin 0.17. Chest x-ray shows mild Covid 19 pneumonia pattern. Patient given IV fluids and Decadron in the ER. Patient admitted for observation. Hospital Course: Patient presented with dyspnea secondary to bilateral Covid pneumonia with hypoxia. Patient is unvaccinated. Patient was admitted for treatment. Patient required IV steroids, ivermectin and supplementation. Patient also had acute renal injury likely from dehydration due to poor oral intake over the last several days. Patient received IV fluids with improvement. Renal function back to baseline. Patient has significantly improved. Patient currently stable on 2 L per nasal cannula. Patient without significant shortness of breath. At discharge patient will continue with home oxygen to maintain sats above 93%. Patient currently on 2 L per nasal cannula. Patient will need to monitor his oxygen saturations at home. At discharge the patient will continue with prednisone 20 mg 1 pill twice daily for 7 days then 1 pill once daily for 7 days. The patient may continue with aspirin 325 mg daily. The patient will be provided Robitussin with codeine 5 mL 3 times a day as needed for cough. A limited supply will be provided. At discharge the patient will also continue with vitamin supplementation including zinc 220 mg 1 pill daily, thiamine 100 mg 1 pill twice daily, vitamin D 1000 units daily, and vitamin C 500 mg 1 pill 3 times a day. Patient will continue with CDC guidelines on Covid isolation. Recommend to continue incentive spirometer every hour. Recommend to continue proning, ambulation, social distancing, handwashing, and face mask use. Recommend follow-up with PCP within 1 week to follow-up his hospitalization and continue his care. Patient will also be provided information for consultation with pulmonology as an outpatient to follow-up on his Covid infection. Pulmonology or PCP can wean off his oxygen. Home oxygen will be arranged prior to discharge. Patient will need to limit his activities at home. As mentioned above patient had acute renal injury likely from dehydration. Patient received IV fluids with improvement. Patient encouraged to increase oral intake. Patient may take Ensure or boost to help with supplementation. Recommend to recheck labBMP in 1 to 2 weeks to monitor his care. This can be done with the help of his PCP. Patient with hypertension. Patient is seen by cardiology. Will recommend to decrease metoprolol to 12.5 mg 1 pill twice daily. Recommend to hold blood pressure medication if blood pressure systolic less than 110 or heart rate less than 60. Recommend follow-up with PCP or cardiology in 1 to 2 weeks to monitor his care. Patient with hypothyroidism. Patient takes 100 mcg of levothyroxine daily. His TSH and free T4 shows that he is supratherapeutic. Medication will need to be decreased. At discharge will decrease levothyroxine to 75 mcg daily. A prescription will be provided. Recommend to recheck TSH and free T4 in 4 to 6 weeks to monitor his care. Further adjustment can be done by his PCP. Patient with GERD. At discharge patient will continue with Prilosec 40 mg daily. Patient with hyperlipidemia. At discharge patient will continue with pravastatin 10 mg daily. Patient also takes probiotic, cranberry, and Nasacort. Patient may continue with these medications. Vital Signs/Physical Exam: Temp Pulse Resp BP Pulse Ox 98.5 F 59 20 111/61 06/02/21 15:40 06/02/21 17:28 06/02/21 15:40 06/02/21 15:40 General: Alert, In no apparent distress, Oriented x3, Cooperative HEENT: Atraumatic Neck: Supple Respiratory: Clear to auscultation bilaterally, Normal air movement Cardiovascular: Normal pulses, Regular rate/rhythm Gastrointestinal: Normal bowel sounds, No tenderness, No masses, No rebound, No guarding Musculoskeletal: No erythema, No tenderness, No warmth Integumentary: No tenderness/swelling Neurological: Normal speech, Normal strength at 5/5 x4 extr, Normal tone Laboratory Data at Discharge: WBC 3.10 K/uL (4.3-10.9) L 06/03/21 03:32 Hgb 13.9 g/dL (13.6-17.9) 06/03/21 03:32 Hct 40.7 % (39.6-49.0) 06/03/21 03:32 Plt Count 124 K/uL (152-406) L 06/03/21 03:32 PT 13.1 SECONDS (9.5-12.5) H 06/02/21 09:35 INR 1.14 06/02/21 09:35 APTT 31.3 SECONDS (24.3-36.9) 06/02/21 09:35 Sodium 135 mmol/L (136-145) L 06/03/21 03:32 Potassium 4.0 mmol/L (3.5-5.1) 06/03/21 03:32 BUN 25 mg/dL (7-18) H 06/03/21 03:32 Creatinine 0.86 mg/dL (0.55-1.3) 06/03/21 03:32 Glucose 164 mg/dL (74-106) H 06/03/21 03:32 Magnesium 2.5 mg/dL (1.8-2.4) H 06/03/21 03:32 Total Bilirubin 0.7 mg/dL (0.2-1.0) 06/02/21 09:35 AST 58 U/L (15-37) H 06/02/21 09:35 ALT 77 U/L (12-78) 06/02/21 09:35 Alkaline Phosphatase 67 U/L (45-117) 06/02/21 09:35 Lipase 315 U/L (73-393) 06/02/21 09:35 Home Medications: Ascorbic Acid [Vitamin C*] 500 mg PO TID #90 tablet 06/03/21 Cholecalciferol (Vitamin D3) [Vitamin D 1000 Iu Tab*] 2,000 unit PO DAILY #60 tab 06/03/21 Guaifen W/Codeine Syrup [ROBITUSSIN A-C Syrup*] 5 ml PO QID PRN #1 bottle 06/03/21 Levothyroxine Sodium [Levothyroxine] 75 mcg PO DAILY #30 capsule 06/03/21 Metoprolol Tartrate [Lopressor*] 12.5 mg PO BID 6AM 6PM #60 tab 06/03/21 Thiamine HCl [Vitamin B-1*] 100 mg PO BID #60 tablet 06/03/21 Zinc Sulfate [Zinc Sulfate*] 220 mg PO DAILY #30 cap 06/03/21 predniSONE [Prednisone*] 20 mg PO SEECOM #21 tab 06/03/21 New Medications: Levothyroxine Sodium [Levothyroxine] 75 mcg PO DAILY #30 capsule Metoprolol Tartrate [Lopressor*] 12.5 mg PO BID 6AM 6PM #60 tab predniSONE [Prednisone*] 20 mg PO SEECOM #21 tab Guaifen W/Codeine Syrup [ROBITUSSIN A-C Syrup*] 5 ml PO QID PRN #1 bottle PRN Reason: Cough Thiamine HCl [Vitamin B-1*] 100 mg PO BID #60 tablet Ascorbic Acid [Vitamin C*] 500 mg PO TID #90 tablet Cholecalciferol (Vitamin D3) [Vitamin D 1000 Iu Tab*] 2,000 unit PO DAILY #60 tab Zinc Sulfate [Zinc Sulfate*] 220 mg PO DAILY #30 cap Physician Discharge Instructions: Patient presented with dyspnea secondary to bilateral Covid pneumonia with hypoxia. Patient is unvaccinated. Patient was admitted for treatment. Patient required IV steroids, ivermectin and supplementation. Patient also had acute renal injury likely from dehydration due to poor oral intake over the last several days. Patient received IV fluids with improvement. Renal function back to baseline. Patient has significantly improved. Patient currently stable on 2 L per nasal cannula. Patient without significant shortness of breath. At discharge patient will continue with home oxygen to maintain sats above 93%. Patient currently on 2 L per nasal cannula. Patient will need to monitor his oxygen saturations at home. At discharge the patient will continue with prednisone 20 mg 1 pill twice daily for 7 days then 1 pill once daily for 7 days. The patient may continue with aspirin 325 mg daily. The patient will be provided Robitussin with codeine 5 mL 3 times a day as needed for cough. A limited supply will be provided. At discharge the patient will also continue with vitamin supplementation including zinc 220 mg 1 pill daily, thiamine 100 mg 1 pill twice daily, vitamin D 1000 units daily, and vitamin C 500 mg 1 pill 3 times a day. Patient will continue with CDC guidelines on Covid isolation. Recommend to continue incentive spirometer every hour. Recommend to continue proning, ambulation, social distancing, handwashing, and face mask use. Recommend follow-up with PCP within 1 week to follow-up his hospitalization and continue his care. Patient will also be provided information for consultation with pulmonology as an outpatient to follow-up on his Covid infection. Pulmonology or PCP can wean off his oxygen. Home oxygen will be arranged prior to discharge. Patient will need to limit his activities at home. As mentioned above patient had acute renal injury likely from dehydration. Patient received IV fluids with improvement. Patient encouraged to increase oral intake. Patient may take Ensure or boost to help with supplementation. Recommend to recheck labBMP in 1 to 2 weeks to monitor his care. This can be done with the help of his PCP. Patient with hypertension. Patient is seen by cardiology. Will recommend to decrease metoprolol to 12.5 mg 1 pill twice daily. Recommend to hold blood pressure medication if blood pressure systolic less than 110 or heart rate less than 60. Recommend follow-up with PCP or cardiology in 1 to 2 weeks to monitor his care. Patient with hypothyroidism. Patient takes 100 mcg of levothyroxine daily. His TSH and free T4 shows that he is supratherapeutic. Medication will need to be decreased. At discharge will decrease levothyroxine to 75 mcg daily. A prescription will be provided. Recommend to recheck TSH and free T4 in 4 to 6 weeks to monitor his care. Further adjustment can be done by his PCP. Patient with GERD. At discharge patient will continue with Prilosec 40 mg daily. Patient with hyperlipidemia. At discharge patient will continue with pravastatin 10 mg daily. Patient also takes probiotic, cranberry, and Nasacort. Patient may continue with these medications. Diet: AHA Activity: Ad adan Followup: Humberto Naranjo, DO [Primary Care Provider] - Time spent managing pt's care (in minutes): 55
[2021-06-03 09:39] VITALS: O2SAT 93
[2021-06-03 09:41] VITALS: TEMP 98.3
[2021-06-03] MEDS: NA CHLORIDE 0.9% 1,000 ML IV SCH (11:40)
[2021-06-03 12:06] VITALS: BP 121/68
[2021-06-03] MEDS ORDERED: NA CHLORIDE 0.9% 1,000 ML ONE (12:41)
== END 2021-06-03 14:40 | disposition home or self-care (01) ==
LOC: ER 07:12 → ERHOLD 17:09 → INTOOBSV 17:09
PROVIDERS: ADMIT Family Medicine; ATTEND Family Medicine
DX: U07.1 COVID-19 (principal); J12.82 Pneumonia due to coronavirus disease 2019; R09.02 Hypoxemia; E86.0 Dehydration; N17.9 Acute kidney failure, unspecified; I10 Essential (primary) hypertension; E78.5 Hyperlipidemia, unspecified; K21.9 Gastro-esophageal reflux disease without esophagitis; E03.9 Hypothyroidism, unspecified; E78.00 Pure hypercholesterolemia, unspecified
CPT/HCPCS: 93005; 87040 ×2; 87070; 85025 ×2; 80048 ×2; 36415; 83735; 85610; 82947; 85379; 80076; 87081; 83605; 85730; 84443; 81003; 84484; 84439; 82728; 83690; 84145; 86140; 87804 ×2; 71045; 94010; 96374; 99284; J1650; J1100; J7030 ×3; J2920 ×3; G0378 ×3

== ENCOUNTER 2021-06-04 08:58 | Inpatient (IN) | payer OTHER ==
--- OUTSIDE RECORDS SUMMARY | 2021-06-04 09:02 | XMS REPORT | Continuity of Care Document ---
:1955 Author Organization [facility] t Address [address] [place] [address] Care Team Providers Name Role Phone Nicola EDWARDS Primary Care Physician [facility] Attending Clinician Unavailable Darrel ROE, L. Attending Clinician Zora Osborn Attending Clinician Payers Payer Name Policy Type Policy Effective Date Expiration Date [facility] Number AETNAAETNA PPO [id number] 2000 [facility] OPEN 00:00:00 Hospital [id number] 2000-Present PPO Problems Condition Condition Condition Status Onset Resolution Last Treating Co mments Source Name Details Category Date Date Treatment Clinician Date INCISE Diagnosis Active 2019-102020-09-27 Mem oria FINGER 1-25 04:15:00 l TENDON INCISE 00:00: [place] CARPAL FINGER 00 TUNNEL TENDON RIGH CARPAL TUNNEL RIGH Active 09/13/2020 [facility] [place] UNK Diagnosis Active 2019-102020-09-22 Mem oria 1-25 09:39:00 l UNK 00:00: Ren 00 Active 09/13/2020 [facility] [place] CARPAL Diagnosis Active 2019-102020-08-29 Mem oria TUNNEL 0-30 12:25:00 l RELEASE, CARPAL 00:00: Olaf n LEFT TUNNEL 00 RELEASE, LEFT Active 08/18/2020 [facility] Ren M79.632 - Diagnosis Active 2020-06-28 Memoria PAIN IN 06-20 12:51:00 l LEFT M79.632 00:01: [place] FOREARM - PAIN IN 00 R22 - "LO LEFT FOREARM R22 - "LO Active 06/20/2020 [facility] [place] [facility] Active 2015-10 Met hodi [...] Stop Date Source Natural father Rectal cancer [facility] Social History Social Habit Start Date Stop Date Quantity Comments Source Social History 2020-09-26 2020-09-26 [facility] 22:06:41 22:06:41 Alcohol intake 2016-09-26 2016-09-26 Current [facility] 00:00:00 00:00:00 non-drinker of Hospital alcohol (finding) Sex Ass[birth year] At [birth year] [facility] 00:00:00 00:00:00 Hospital Smoking Status Start Date Stop Date Source Never smoker [facility] Medications Ordered Filled Start Stop Current Ordering Indication Dosage Frequency Signature Comments Components Source Medication Medication Date Date Medication? Clinician (SIG) Name Name sodium,pota Yes Use as Meth jonna ssium,mag 1-[address] sulfates 00:00: Hospita (Suprep 00 l Bowel Prep Kit) 17.5-3.13-1 .6 gram recon soln sodium,pota Yes Use as Meth jonna ssium,mag 1-[address] sulfates 00:00: Hospita (Suprep 00 l Bowel Prep Kit) 17.5-3.13-1 .6 gram recon soln ceFAZolin 2019-10 No Route: IV, Me moria (ANES) 11-27 Drug form: l 21:09: INJ, ONCE, Stop date: 09/26/20 15:09:00 SKIP MINER BLASTING propofol 2019-10 No Route: IV, Mem oria (ANES) 11-27 Drug form: l 21:09: INJ, ONCE, Stop date: 09/26/20 15:09:00 SKIP MINER BLASTING ondansetron 2019-10 No Route: IV, Memoria (ANES) 11-27 Drug form: l 21:09: INJ, ONCE, Stop date: 09/26/20 15:09:00 SKIP MINER BLASTING midazolam 2019-10 No Route: IV, Me moria (ANES) 2-08 Drug form: l 21:09: SOLN, Ren 00 ONCE, Stop date: 09/26/20 15:09:00 SKIP MINER BLASTING fentaNYL 2019-10 No Route: IV, Mem oria (ANES) 2-08 Drug form: l 21:09: INJ, ONCE, Ren 00 Stop date: 09/26/20 15:09:00 SKIP MINER BLASTING ceFAZolin 2019-10 No Route: IV, Me moria (ANES) 2-08 Drug form: l 21:09: INJ, ONCE, Ren 00 Stop date: 09/26/20 15:09:00 SKIP MINER BLASTING propofol 2019-10 No Route: IV, Mem oria (ANES) 2-08 Drug form: l 21:09: INJ, ONCE, [place] Stop date: 09/26/20 15:09:00 SKIP MINER BLASTING ondansetron 2019-10 No Route: IV, Memoria (ANES) 2-08 Drug form: l 21:09: INJ, ONCE, [place] Stop date: 09/26/20 15:09:00 SKIP MINER BLASTING midazolam 2019-10 No Route: IV, Me moria (ANES) 2-08 Drug form: l 21:09: SOLN, [place] 00 ONCE, Stop date: 09/26/20 15:09:00 SKIP MINER BLASTING fentaNYL 2019-10 No Route: IV, Mem oria (ANES) 2-08 Drug form: l 21:09: INJ, ONCE, [place] 00 Stop date: 09/26/20 15:09:00 SKIP MINER BLASTING Lactated 2019-10 No Route: IV, Mem oria Ringers 2-08 Total l Injection 20:20: Volume: Sara nn IV (ANES) 00 1,000, 1000 mL Start date: 09/26/20 14:20:00 SKIP MINER BLASTING, Stop date: 09/26/20 15:20:00 SKIP MINER BLASTING Lactated 2019-10 No Route: IV, Mem oria Ringers 2-08 Total l Injection 20:20: Volume: Sara nn IV (ANES) 00 1,000, 1000 mL Start date: 09/26/20 14:20:00 SKIP MINER BLASTING, Stop date: 09/26/20 15:20:00 SKIP MINER BLASTING Calcium 2019-1 No 1,000 mL, Memor ia Chloride 2-08 Rate: 75 l 0.0014 19:43: ml/hr, Ren MEQ/ML / 00 Infuse Potassium over: 13.3 Chloride hr, Route: 0.004 IV, Dosing MEQ/ML / Weight Sodium 112.318 Chloride kg, Total 0.103 Volume: MEQ/ML / 1,000, Sodium Start Lactate date: 0.028 20 MEQ/ML 13:43:00 Injectable SKIP MINER BLASTING, Solution Duration: 30 day, Stop date: 10/26/20 13:42:00 SKIP MINER BLASTING, 2.46, m2, 0 Calcium 2019-10 No 1,000 mL, Memor ia Chloride 2-08 Rate: 75 l 0.0014 19:43: ml/hr, [place] MEQ/ML / 00 Infuse Potassium over: 13.3 Chloride hr, Route: 0.004 IV, Dosing MEQ/ML / Weight Sodium 112.318 Chloride kg, Total 0.103 Volume: MEQ/ML / 1,000, Sodium Start Lactate date: 0.028 20 MEQ/ML 13:43:00 Injectable SKIP MINER BLASTING, Solution Duration: 30 day, Stop date: 10/26/20 13:42:00 SKIP MINER BLASTING, 2.46, m2, 0 ceFAZolin 2019-10 No Route: IV, Me moria (ANES) 1- Drug form: l 21:40: INJ, ONCE, Stop date: 08/29/20 15:40:00 SKIP MINER BLASTING fentaNYL 2019-10 No Route: IV, Mem oria (ANES) 1-10 Drug form: l 21:40: INJ, ONCE, Stop date: 08/29/20 15:40:00 SKIP MINER BLASTING propofol 2019-10 No Route: IV, Mem oria (ANES) 1-10 Drug form: l 21:40: INJ, ONCE, [place] 00 Stop date: 08/29/20 15:40:00 SKIP MINER BLASTING ondansetron 2019-10 No Route: IV, Memoria (ANES) 1-10 Drug form: l 21:40: INJ, ONCE, Stop date: 08/29/20 15:40:00 SKIP MINER BLASTING ceFAZolin 2019-10 No Route: IV, Me moria (ANES) 1-10 Drug form: l 21:40: INJ, ONCE, [place] 00 Stop date: 08/29/20 15:40:00 SKIP MINER BLASTING fentaNYL 2019-10 No Route: IV, Mem oria (ANES) 1-10 Drug form: l 21:40: INJ, ONCE, Ren Stop date: 08/29/20 15:40:00 SKIP MINER BLASTING propofol 2019-10 No Route: IV, Mem oria (ANES) 1- Drug form: l 21:40: INJ, ONCE, [place] 00 Stop date: 08/29/20 15:40:00 SKIP MINER BLASTING ondansetron 2019-10 No Route: IV, Memoria (ANES) 1- Drug form: l 21:40: INJ, ONCE, [place] 00 Stop date: 08/29/20 15:40:00 SKIP MINER BLASTING midazolam 2019-10 No Route: IV, Me moria (ANES) 1-10 Drug form: l 21:37: SOLN, [place] 00 ONCE, Stop date: 08/29/20 15:37:00 SKIP MINER BLASTING midazolam 2019-10 No Route: IV, Me moria (ANES) 1-10 Drug form: l 21:37: SOLN, [place] 00 ONCE, Stop date: 08/29/20 15:37:00 SKIP MINER BLASTING Lactated 2019-10 No Route: IV, Mem oria Ringers 1-10 Total l Injection 20:30: Volume: Sara nn IV (ANES) 00 1,000, 1000 mL Start date: 08/29/20 14:30:00 SKIP MINER BLASTING, Stop date: 08/29/20 15:30:00 SKIP MINER BLASTING Lactated 2019-10 No Route: IV, Mem oria Ringers 1-10 Total l Injection 20:30: Volume: Sara nn IV (ANES) 00 1,000, 1000 mL Start date: 08/29/20 14:30:00 SKIP MINER BLASTING, Stop date: 08/29/20 15:30:00 SKIP MINER BLASTING Calcium 2019-10 No 1,000 mL, Memor ia Chloride 1-10 Rate: 75 l 0.0014 18:59: ml/hr, MEQ/ML / 00 Infuse Potassium over: 13.3 Chloride hr, Route: 0.004 IV, Dosing MEQ/ML / Weight Sodium 109.091 Chloride kg, Total 0.103 Volume: MEQ/ML / 1,000, Sodium Start Lactate date: 0.028 11/10/20 MEQ/ML 12:59:00 Injectable SKIP MINER BLASTING, Solution Duration: 30 day, Stop date: 09/28/20 12:58:00 SKIP MINER BLASTING, 2.43, m2, 0 Sodium 2020-1 No 1,000 mL, Memori a Chloride 1-10 Rate: 75 l 0.9% IV 18:59: ml/hr, [place] 1,000 mL 00 Infuse over: 13.3 hr, Route: IV, Dosing Weight 109.091 kg, Total Volume: 1,000, Start date: 08/29/20 12:59:00 SKIP MINER BLASTING, Duration: 30 day, Stop date: 09/28/20 12:58:00 SKIP MINER BLASTING, 2.43, m2, 0 Calcium 2020-1 No 1,000 mL, Memor ia Chloride 1-10 Rate: 75 l 0.0014 18:59: ml/hr, Ren MEQ/ML / 00 Infuse Potassium over: 13.3 Chloride hr, Route: 0.004 IV, Dosing MEQ/ML / Weight Sodium 109.091 Chloride kg, Total 0.103 Volume: MEQ/ML / 1,000, Sodium Start Lactate date: 0.028 08/29/20 MEQ/ML 12:59:00 Injectable SKIP MINER BLASTING, Solution Duration: 30 day, Stop date: 09/28/20 12:58:00 SKIP MINER BLASTING, 2.43, m2, 0 Sodium 2020-1 No 1,000 mL, Memori a Chloride 1-10 Rate: 75 l 0.9% IV 18:59: ml/hr, [place] 1,000 mL 00 Infuse over: 13.3 hr, Route: IV, Dosing Weight 109.091 kg, Total Volume: 1,000, Start date: 08/29/20 12:59:00 SKIP MINER BLASTING, Duration: 30 day, Stop date: 09/28/20 12:58:00 SKIP MINER BLASTING, 2.43, m2, 0 BAXYL 2020-1 Yes BAXYL, 1/2 Memori a 1-03 TEASPOON, l 17:33: PO, Daily, [place] 00 Refill(s) 0 BAXYL 2020-1 Yes BAXYL, 1/2 Memori a 1-03 TEASPOON, l 17:33: PO, Daily, Ren 00 Refill(s) 0 PROSTATE 2019-1 Yes PROSTATE Memor ia SUPPORT -03 SUPPORT, 2 l 17:32: tab, PO, Ren 00 Every Other Day, Refill(s) 0 PROSTATE 2019-10 Yes PROSTATE Memor ia SUPPORT -03 SUPPORT, 2 l 17:32: tab, PO, [place] 00 Every Other Day, Refill(s) 0 KRILL OIL 2019-10 Yes KRILL OIL, Me moria 1-03 500 mg =, l 17:31: PO, Daily, Ren 00 Refill(s) 0 KRILL OIL 2019-10 Yes KRILL OIL, Me moria 1-03 500 mg =, l 17:31: PO, Daily, [place] 00 Refill(s) 0 Calcium 2019-10 Yes 2 tab, Memoria Citrate 1-03 CHEW, l 2380 MG / 17:30: Daily, 0 Herm jana Cholecalcif 00 Refill(s) omaira 400 UNT Chewable Tablet [Calcet] Calcium 2019-10 Yes 2 tab, Memoria Citrate 1-03 CHEW, l 2380 MG / 17:30: Daily, 0 Herm jana Cholecalcif 00 Refill(s) omaira 400 UNT Chewable Tablet [Calcet] Vitamin D3 2019-10 Yes 125 Memoria 1-03 microgram, l 17:29: PO, Daily, Ren 00 0 Refill(s) Aspirin 81 2019-10 Yes 81 mg = 1 Me moria MG Chewable 1-03 tab, CHEW, l Tablet 17:29: Daily, 0 Ren 00 Refill(s) Vitamin D3 2019-10 Yes 125 Memoria 1-03 microgram, l 17:29: PO, Daily, Ren 00 0 Refill(s) Aspirin 81 2019-10 Yes 81 mg = 1 Me moria MG Chewable 1-03 tab, CHEW, l Tablet 17:29: Daily, 0 Ren 00 Refill(s) biotin 5000 2019-10 Yes 5,000 Memor ia mcg oral 1-03 microgram l tablet, 17:27: = 1 tab, Olaf n disintegrat 00 PO, Daily, ing 0 Refill(s) biotin 5000 2019-10 Yes 5,000 Memor [...] Yes 1 cap, PO, Me moria Formula 1-03 Daily, 0 l 17:26: Refill(s) [place] 00 omeprazole 2019-10 Yes 40 mg = 1 Me moria 40 mg oral 1-03 cap, PO, l delayed 17:26: Daily, 0 Olaf n release 00 Refill(s) capsule levothyroxi 2019-10 Yes 100 Memori a ne 100 mcg 1-03 microgram l (0.1 mg) 17:26: = 1 tab, Sara nn oral tablet 00 PO, Daily, 0 Refill(s) Probiotic 2019-10 Yes 1 cap, PO, Me moria Formula 1-03 Daily, 0 l 17:26: Refill(s) Ren 00 sodium,pota 2016-10- No Use as Met hodi ssium,mag 10-[address] sulfates 00:00: 00:00 Hospita (SUPREP 00 :00 l BOWEL PREP KIT) 17.5-3.13-1 .6 gram recon soln sodium,pota 2016-10- No Use as Met hodi ssium,mag 10-[address] sulfates 00:00: 00:00 Hospita (SUPREP 00 :00 l BOWEL PREP KIT) 17.5-3.13-1 .6 gram recon soln omeprazole Yes TAKE 1 Metho di (PriLOSEC) 9-[address] 40 MG 00:00: DAILY Hospita capsule 00 l omeprazole Yes TAKE 1 Metho di (PriLOSEC) 9-[address] 40 MG 00:00: DAILY Hospita capsule 00 l coenzyme 2015-10 Yes 100mg QD Take 100 Meth jonna Q10 100 mg 2-[address] capsule 20:19: mouth Hospita 08 daily. l coenzyme 2015-10 Yes 100mg QD Take 100 Meth jonna Q10 100 mg 2-[address] capsule 20:19: mouth Hospita 08 daily. l montelukast Yes Method i (SINGULAIR) 8-09 st 10 mg 00:00: Hospita tablet 00 l montelukast Yes Method i (SINGULAIR) 8-09 st 10 mg 00:00: Hospita tablet 00 l magnesium Yes 1{tbl} QD Take 1 Meth jonna oxide 500 7-[address] mg tablet 00:00: mouth once Ho spita 00 daily. l magnesium Yes 1{tbl} QD Take 1 Meth jonna oxide 500 7-[address] mg tablet 00:00: mouth once Ho spita 00 daily. l levothyroxi Yes Method i ne 7-17 st (SYNTHROID, 00:00: Hospit a LEVOTHROID) 00 l 100 MCG tablet simvastatin Yes Method i (ZOCOR) 40 7-17 st MG tablet 00:00: Hospita 00 l levothyroxi Yes Method i ne 7-17 st (SYNTHROID, 00:00: Hospit a LEVOTHROID) 00 l 100 MCG tablet simvastatin Yes Method i (ZOCOR) 40 7-17 st MG tablet 00:00: Hospita 00 l Vital Signs Vital Name Observation Time Observation Value Comments Source Respitory Rate 2020-09-26 21:45:00 Memori al [place] Systolic (mm Hg) 2020-09-26 21:45:00 Jason rial [place] Diastolic (mm Hg) 2020-09-26 21:45:00 Mem orial [place] Respitory Rate 2020-09-26 21:30:00 Memori al [place] Systolic (mm Hg) 2020-09-26 21:30:00 Jason rial [place] Diastolic (mm Hg) 2020-09-26 21:30:00 Mem orial [place] Respitory Rate 2020-09-26 21:15:00 Memori al [place] Systolic (mm Hg) 2020-09-26 21:15:00 Jason rial [place] Diastolic (mm Hg) 2020-09-26 21:15:00 Mem orial [place] Height 2020-09-22 16:01:00 193.04 cm [facility] Ren Weight 2020-09-22 16:01:00 [facility] Calculated 2020-09-22 16:01:00 Memori al [place] Height 2020-09-19 22:02:00 193.04 cm [facility] [place] Weight 2020-09-19 22:02:00 [facility] Ren BMI Calculated 2020-09-19 22:02:00 Memori al [place] Respitory Rate 2020-08-29 22:15:00 Memori al [place] Systolic (mm Hg) 2020-08-29 22:15:00 Jason rial [place] Diastolic (mm Hg) 2020-08-29 22:15:00 Mem orial Ren Respitory Rate 2020-08-29 22:00:00 Memori al [place] Systolic (mm Hg) 2020-08-29 22:00:00 Jason rial [place] Diastolic (mm Hg) 2020-08-29 22:00:00 Mem orial [place] Respitory Rate 2020-08-29 21:45:00 Memori al [place] Systolic (mm Hg) 2020-08-29 21:45:00 Jason rial [place] Diastolic (mm Hg) 2020-08-29 21:45:00 Mem orial [place] Height 2020-08-22 16:44:00 193.04 cm [facility] [place] Weight 2020-08-22 16:44:00 [facility] Ren BMI Calculated 2020-08-22 16:44:00 Memori al Ren Procedures Procedure Date / Time Performed Performing Clinician [facility] e SURGICAL PATHOLOGY 2020-11-17 18:34:00 Terence Rojo [facility] REQUEST COVID-19 QUALITATIVE 2020-11-13 19:59:00 Terence Rojo [facility] RT-PCR Carpal tunnel release [facility] Plan of Care Planned Activity Planned Date Details Comments Source Future Scheduled Test COVID-19 VACCINE (1) [facility] [code = COVID-19 VACCINE (1)] Future Scheduled Test Hepatitis C screening [facility] (procedure) [code = 661694392] Future Scheduled Test COLONOSCOPY SCREENING [facility] [code = COLONOSCOPY SCREENING] Future Scheduled Test SHINGLES VACCINES (#1) [facility] [code = SHINGLES VACCINES (#1)] Future Scheduled Test INFLUENZA VACCINE [code [facility] = INFLUEN[facility] VACCINE] Future Scheduled Test GASTROSCOPY (EGD) [code [facility] = GASTROSCOPY (EGD)] Future Scheduled Test COVID-19 VACCINE (1) [facility] [code = COVID-19 VACCINE (1)] Future Scheduled Test Hepatitis C screening [facility] (procedure) [code = 554709449] Future Scheduled Test COLONOSCOPY SCREENING [facility] [code = COLONOSCOPY SCREENING] Future Scheduled Test SHINGLES VACCINES (#1) [facility] [code = SHINGLES VACCINES (#1)] Future Scheduled Test INFLUENZA VACCINE [code [facility] = INFLUENZA VACCINE] Future Scheduled Test GASTROSCOPY (EGD) [code [facility] = GASTROSCOPY (EGD)] Encounters Start End Encounter Admission Attending Care Care Encounter Source Date/Time Date/Time Type Type Clinicians Facility Department ID 2020-12-08 2020-12-08 [facility] 1.2.840.1 [id number] Methodi 00:00:00 00:00:[address] 3.430.2.7 Hospit a .3.251142 l .8 2020-12-08 2020-12-08 [facility] 1.2.840.1 [id number] Methodi 00:00:00 00:00:[address] 3.430.2.7 Hospit a .3.404529 l .8 2020-11-17 2020-11-17 Lab Darrel 1.2.840.1 [id number] Methodi 11:32:28 11:37:28 Terence Mayfield 33939.1.1 189 s t 3.430.2.7 Hospit a .3.473316 l .8 2020-11-17 2020-11-17 Lab Darrel 1.2.840.1 [id number] Methodi 11:32:28 11:37:28 Terence Mayfield 88718.1.1 189 s t 3.430.2.7 Hospit a .3.126737 l .8 2020-11-16 2020-11-16 Steven Rojo 1.2.840.1 [id number] Methodi 00:00:00 00:00:00 Terence Mayfield 25664.1.1 059 s t 3.430.2.7 Hospit a .3.884597 l .8 2020-11-16 2020-11-16 Telephone Carlosmagi, 1.2.840.1 [id number] Methodi 00:00:00 00:00:00 Terence Mayfield 21132.1.1 059 s t 3.430.2.7 Hospit a .3.278395 l .8 2020-11-13 2020-11-13 Lab Darrel, 1.2.840.1 [id number] Methodi 13:33:58 13:48:58 Terence Mayfield 79177.1.1 631 s t 3.430.2.7 Hospit a .3.367648 l .8 2020-11-13 2020-11-13 Lab Darrel, 1.2.840.1 [id number] Methodi 13:33:58 13:48:58 Terence Mayfield 56910.1.1 631 s t 3.430.2.7 Hospit a .3.844378 l .8 2020-11-13 2020-11-13 Travel 1.2.840.1 1.2.438.562 [id number] Methodi 00:00:00 00:00:[address] 3.430.2.7 0.2.7.3.698 Ho spita .3.770865 084.8 l .8 2020-11-13 2020-11-13 Travel 1.2.840.1 1.2.914.993 1786 [id number] Methodi 00:00:00 00:00:[address] 3.430.2.7 0.2.7.3.698 Ho spita .3.116582 084.8 l .8 2020-10-31 2020-10-31 Telephone Carlosmagi, 1.2.840.1 [id number] Methodi 00:00:00 00:00:00 Terence Mayfield 44275.1.1 743 s t 3.430.2.7 Hospit a .3.157158 l .8 2020-10-31 2020-10-31 Telephone Tompson, 1.2.840.1 [id number] Methodi 00:00:00 00:00:00 Terence Mayfield 82243.1.1 743 s t 3.430.2.7 Hospit a .3.831101 l .8 2020-10-25 2020-10-25 Telephone Tompson, 1.2.840.1 [id number] Methodi 00:00:00 00:00:00 Terence Mayfield 98341.1.1 535 s t 3.430.2.7 Hospit a .3.433248 l .8 2020-10-25 2020-10-25 Telephone Tompson, 1.2.840.1 [id number] Methodi 00:00:00 00:00:00 Terence Mayfield 30903.1.1 606 s t 3.430.2.7 Hospit a .3.942729 l .8 2020-10-25 2020-10-25 Travel 1.2.840.1 1.2.987.638 [id number] [id number] Methodi 00:00:00 00:00:[address] 3.430.2.7 0.2.7.3.698 Ho spita .3.336545 084.8 l .8 2020-10-25 2020-10-25 Telephone Tompson, 1.2.840.1 [id number] Methodi 00:00:00 00:00:00 Terence Mayfield 41665.1.1 606 s t 3.430.2.7 Hospit a .3.357486 l .8 2020-10-25 2020-10-25 Travel 1.2.840.1 1.2.586.445 6275 [id number] Methodi 00:00:00 00:00:[address] 3.430.2.7 0.2.7.3.698 Ho spita .3.609434 084.8 l .8 2020-10-25 2020-10-25 Telephone Tompson, 1.2.840.1 [id number] Methodi 00:00:00 00:00:00 Terence Mayfield 49668.1.1 535 s t 3.430.2.7 Hospit a .3.892365 l .8 2020-10-23 2020-10-23 Telephone Darrel, 1.2.840.1 [id number] [id number] Methodi 00:00:00 00:00:00 Terence Mayfield 48605.1.1 289 s t 3.430.2.7 Hospit a .3.318962 l .8 2020-10-23 2020-10-23 Telephone Darrel, 1.2.840.1 [id number] Methodi 00:00:00 00:00:00 Terence Mayfield 88433.1.1 289 s t 3.430.2.7 Hospit a .3.043235 l .8 2020-10-19 2020-10-19 Telephone Darrel, 1.2.840.1 [id number] Methodi 00:00:00 00:00:00 Terence Mayfield 25323.1.1 948 s t 3.430.2.7 Hospit a .3.126669 l .8 2020-10-19 2020-10-19 Telephone Darrel, 1.2.840.1 [id number] Methodi 00:00:00 00:00:00 Terence Mayfield 81582.1.1 948 s t 3.430.2.7 Hospit a .3.500145 l .8 2020-09-26 2020-09-26 Day [facility] [id number] Memoria 17:23:00 21:59:00 Surgery r [place] 01 [facility] 2020-09-26 2020-09-26 [id number] Memoria 17:23:00 21:59:00 Surgery r Ren 01 [facility] 2020-09-26 2020-09-26 Outpatient Anurag MHPL MHPL [id number] 11:23:00 15:59:00 Vick Nolan [facility]ella 2020-09-26 2020-09-26 Outpatient Mansour, MHPL MHPL [id number] 14:30:00 14:30:00 [place] 01 Castella 2020-09-26 2020-09-26 Outpatient MHBL MHBL 7501 MHBL 11:23:00 11:23:00 2020-08-29 2020-08-29 Day [facility]Flavo [facility] [id number] Memoria 18:19:00 22:18:00 Surgery r [place] 00 l [facility] 2020-08-29 2020-08-29 Day nullFlavo [facility] [id number] Memoria 18:19:00 22:18:00 Surgery r [place] 00 l [facility] 2020-08-29 2020-08-29 Outpatient Mansvinicio, MHPL MHPL [id number] 12:19:00 16:18:00 [place] Castella 2020-08-29 2020-08-29 Outpatient Mansvinicio, MHPL MHPL [id number] 13:30:00 13:30:00 [place] Castella 2020-08-29 2020-08-29 Outpatient MHBL MHBL 7500 MHBL 12:19:00 12:19:00 2020-06-28 2020-06-29 Outpt Diag nullFlavo [facility] [id number] Memoria 17:16:00 04:59:00 Services r Outpatient 00 l Imaging [facility] 2020-06-28 2020-06-[place] [id number] Memoria 17:16:00 04:59:00 Services r Outpatient 00 l Imaging [facility] 2020-06-28 2020-06-28 Outpatient Anurag, MHOIP MHOIP [id number] 12:16:00 23:59:00 [place] 00 [facility] Results Test Description Test Time Test Comments Results Result Comments Source Surgical pathology request 2020-11-20 17:09:49 Test Item Value Reference Range Interpretation Comme nts Case number (test code = 2632217) [id number] Surgical pathology report (test code = See link below for PDF Lab R eport 2257) Result status (test code = 9089290) This is Final Report for [id number] 2096-2 [facility] [id number] 17:09:49 Test Item Value Reference Range Interpretation Comments Case number (test code = [id number]) Surgical pathology See link below for report (test code = PDF Lab Report 2255) Result status (test code This is Final Report = [id number]) [facility] [id number] [facility] [id number] 02:19:23 Test Item Value Reference Range Interpretation Comments Interpretation (test code = 7124317) COVID-19 qualitative RT-PCR Not-Detected Not-Detected result (test code = 96881-6) COVID-19 qualitative RT-PCR See link below for (test code = 7070) PDF Lab Report [facility] [id number] 02:19:23 Test Item Value Reference Range Interpretation Comments Interpretation (test code = 7894797) COVID-19 qualitative RT-PCR Not-Detected Not-Detected result (test code = 25129-4) COVID-19 qualitative RT-PCR See link below for (test code = 7070) PDF [facility] Report [id number] 15:59:00Not Detected *NA*(09/22/20 9:59 AM)[facility] H[id number] 15:59:00Not Detected *NA*(09/22/20 9:59 AM)[facility] [id number] 15:32:00Not Detected (08/25/20 9:32 AM) [facility] H[id number] 15:32:00Not Detected (08/25/20 9:32 AM) [facility]
[2021-06-04] MEDS ORDERED: ONDANSETRON 4 MG (ODT) TAB ONE (09:56)
--- NOTE | 2021-06-04 11:05 | RAD REPORT ---
EXAM DESCRIPTION: RAD - Chest Single View - 06/04/2021 10:54 am CLINICAL HISTORY: COUGH COMPARISON: Chest Single View dated 06/02/2021; CHEST PA AND LAT 2 VIEW dated 11/01/2015; CHEST PA AND LAT 2 VIEW dated 12/22/2014; CHEST PA AND LAT 2 VIEW dated 11/27/2012 FINDINGS: Widespread bilateral airspace disease with worsened aeration bilaterally though more promi nent at the right lung base The heart size is within normal limits.No acute osseous abnormality. No s ignificant pleural effusions or pneumothorax. IMPRESSION: Worsened aeration of the lungs which is concerning for multifocal pneumonia, including C ovid-19.
[2021-06-04 11:24] LABS: Protime INR 1.08
[2021-06-04] MEDS ORDERED: dexAMETHasone 10 MG/ML VIAL ONE (11:25)
[2021-06-04 11:28] LABS: Absolute Lymphocytes (CBC) 0.2 K/uL (0.7-4.9); Basophils % 0.2 % (0-1.3); Hematocrit 42.8 % (39.6-49.0); Lymphocytes % 2.5 % (15.3-44.8); MPV 9.6 fL (7.6-11.3); RBC Red Blood Cell Count 5.19 M/uL (4.33-5.43)
[2021-06-04 11:52] LABS: ALT/SGPT 82 U/L (12-78); AST/SGOT 53 U/L (15-37); Albumin 3.1 g/dL (3.4-5.0); Alkaline Phosphatase 61 U/L (45-117); BUN Blood Urea Nitrogen 29 mg/dL (7-18); Bicarbonate 26 mmol/L (21-32); Bilirubin Direct 0.3 mg/dL (0-0.2); Bilirubin Total 0.7 mg/dL (0.2-1.0); Glucose Level 131 mg/dL (74-106); Magnesium 2.7 mg/dL (1.8-2.4); NT PRO-BNP 1177 pg/mL (<125); Potassium 4.3 mmol/L (3.5-5.1); Protein, Total 6.9 g/dL (6.4-8.2); Sodium Level 135 mmol/L (136-145); Troponin (Emerg Dept Use Only) < 0.02 ng/mL (0.0-0.045)
--- NOTE | 2021-06-04 12:13 | EDPHYS ---
Physician Documentation [facility] Name: Ismael Kennedy Age: 65 yrs Sex: Male : 1955 Arrival Date: 06/04/2021 Time: 09:04 Bed 25 Private MD: Jose A [facility] ED Physician Triston Naranjo HPI: 06/04 10:24 This 65 yrs old Male presents to ER via Wheelchair with complaints of Low O2. sp3 09:43 65 yo male with a history of hyperlipidemia and positive COVID-19 diagnoses on May and admitted to this hospital on June 02 discharged yesterday June 03 now presents with worsening shortness of breath, cough, back pain, fatigue, and generalized malaise. Patient was discharged on 3 L of nasal cannula oxygen and at home his oxygenation dropped to 75% while on 3 L at which point they contacted their primary care physician who advised him to return to the ED. Patient states that his symptoms have progressively worsened and he now has a productive cough, back pain, nausea, generalized malaise, and dark urine. Patient denies any headache, neck pain, bleeding, chest pain, abdominal pain, vomiting, diarrhea, loss of taste or smell, syncope, neuro symptoms, weakness, focal deficits, paresthesias, or any other items on the review of systems at this time.. Historical: - Allergies: 09:28 No Known Allergies; ss - PMHx: 09:28 Hypercholesterolemia; ss - Immunization history:: Client reports having NOT received the Covid vaccine. - Social history:: Smoking status: Patient denies any tobacco usage or history of. ROS: 09:46 Constitutional: Negative for See HPI for remainder of ROS. sp3 09:46 Cardiovascular: Positive for Negative for chest pain, edema, palpitations, acute changes. 09:46 Respiratory: Positive for cough, dyspnea on exertion, shortness of breath, Negative for hemoptysis. 09:46 Skin: Negative for rash. 09:46 All other systems are negative. Exam: 09:47 Head/Face: Normocephalic, atraumatic. Eyes: Pupils equal round and reactive to light, sp3 extra-ocular motions intact. Lids and lashes normal. Conjunctiva and sclera are non-icteric and not injected. Cornea within normal limits. Periorbital areas with no swelling, redness, or edema. Chest/axilla: Normal chest wall appearance and motion. Nontender with no deformity. No lesions are appreciated. Cardiovascular: Regular rate and rhythm with a normal S1 and S2. No gallops, murmurs, or rubs. Normal PMI, no JVD. No pulse deficits. Abdomen/GI: Soft, non-tender, with normal bowel sounds. No distension or tympany. No guarding or rebound. No evidence of tenderness throughout. Skin: Warm, dry with normal turgor. Normal color with no rashes, no lesions, and no evidence of cellulitis. Neuro: Awake and alert, GCS 15, oriented to person, place, time, and situation. Cranial nerves II-XII grossly intact. Motor strength 5/5 in all extremities. Sensory grossly intact. Cerebellar exam normal. Normal gait. Psych: Awake, alert, with orientation to person, place and time. Behavior, mood, and affect are within normal limits. 09:47 Constitutional: The patient appears awake, lethargic, obviously ill. 09:47 Respiratory: Respirations: labored breathing, tachypnea, Breath sounds: rhonchi, + upper airway congestion. Vital Signs: 09:26 Resp 16; Weight 102.06 kg; Height 6 ft. 4 in. (193.04 cm); Pain 6/10; ss 09:28 BP 125 / 74; Pulse 76; Temp 98.1; Pulse Ox 92% on 6 lpm NC; ss 10:30 BP 111 / 54; Pulse 67; Resp 24; Pulse Ox 90% on 6 lpm NC; bp 11:30 BP 113 / 63; Pulse 72; Resp 23; Pulse Ox 88% 6 lpm ; bp 09:26 Body Mass Index 27.39 (102.06 kg, 193.04 cm) ss MDM: 09:39 Patient medically screened. sp3 09:48 ED course: 65-year-old male with COVID-19 now with worsening symptoms and likely sp3 inflammatory phase. Will administer IV fluids and start Decadron 10 mg IV and admit patient. Patient had 325 mg of aspirin prior to arrival so we will not repeat in the ED.. 12:10 ED course: [facility] transfer negley communicated there are no [facility] beds anywhere in 3 the system to allow transfer. We will communicate this to our hospitalist team and arrange local care until ultimate discharge or secondary transfer is able to be performed.. 12:13 Data reviewed: vital signs, nurses notes, lab test result(s), EKG, radiologic studies. sp3 06/04 09:49 Order name: Basic Metabolic Panel sp3 06/04 09:49 Order name: CBC with Diff sp3 06/04 09:49 Order name: LFT's sp3 06/04 09:49 Order name: Magnesium sp3 06/04 09:49 Order name: NT PRO-BNP sp3 06/04 09:49 Order name: PT-INR sp3 06/04 09:49 Order name: Troponin (emerg Dept Use Only) sp3 06/04 09:49 Order name: Basic Metabolic Panel EDMS 06/04 09:49 Order name: CBC with Automated Diff EDMS 06/04 13:07 Order name: C-Reactive Protein EDMS 06/04 13:07 Order name: Ferritin EDMS 06/05 02:49 Order name: CBC with Automated Diff EDMS 06/05 03:12 Order name: Comprehensive Metabolic Panel EDMS 06/05 03:12 Order name: C-Reactive Protein EDMS 06/04 09:49 Order name: XRAY Chest (1 view) sp3 06/04 09:49 Order name: EKG; Complete Time: 09:50 sp3 06/04 09:49 Order name: Cardiac monitoring; Complete Time: 10:35 sp3 06/04 09:49 Order name: EKG - Nurse/Tech; Complete Time: 10:46 sp3 06/04 09:49 Order name: IV Saline Lock; Complete Time: 11:11 sp3 06/04 09:49 Order name: Labs collected and sent; Complete Time: 11:11 sp3 06/04 09:49 Order name: O2 Per Protocol; Complete Time: 10:46 sp3 06/04 09:49 Order name: O2 Sat Monitoring; Complete Time: 10:35 sp3 06/05 03:12 Order name: Magnesium EDMS 06/05 03:12 Order name: Ferritin EDMS 06/05 03:24 Order name: Manual Differential EDMS Administered Medications: 09:34 Drug: Zofran (Ondansetron) 4 mg Route: PO; ss 11:11 Follow up: Response: No adverse reaction bp 11:10 Drug: Decadron - Dexamethasone 10 mg Route: IVP; Site: left antecubital; bp 15:59 Follow up: Response: No adverse reaction bp 16:10 Drug: NS 0.9% 500 ml Route: IV; Rate: bolus; Site: left antecubital; bp Disposition Summary: 06/04/21 12:13 Hospitalization Ordered Hospitalization Status: Inpatient Admission sp3 Provider: Efraín Valdovinos sp3 Condition: Fair sp3 Problem: an acute exacerbation sp3 Symptoms: have worsened sp3 Bed/Room Type: Standard sp3 Location: Telemetry/MedSurg (Inpatient)(06/05/21 15:43) dw Room Assignment: 426(06/05/21 15:43) dw Diagnosis - Respiratory failure, unspecified with hypoxia sp3 - Viral pneumonia, unspecified sp3 Forms: - Medication Reconciliation Form sp3 - SBAR form sp3 Signatures: Dispatcher [employer] EDMS Yoselyn Mathews Diana, RN RN dw Smirch, Shelby, RN RN ss Kannan Olivera RN RN bp Triston Naranjo sp3 Corrections: (The following items were deleted from the chart) 15:24 12:13 Telemetry/MedSurg (Inpatient) sp3 bd 15:24 12:13 sp3 bd 06/05 15:43 06/04 15:24 [facility] ER HOLD bd dw 06/05 15:43 06/04 15:24 ERHOLD- bd dw
--- NOTE | 2021-06-04 12:13 | ER ---
Nurse's Notes [facility] Name: Ismael Kennedy Age: 65 yrs Sex: Male : 1955 Arrival Date: 06/04/2021 Time: 09:04 Bed 25 Private MD: Humberto Naranjo Diagnosis: Respiratory failure, unspecified with hypoxia;Viral pneumonia, unspecified Presentation: 06/04 09:26 Chief complaint: Patient states: Discharged with DX of COVID pneumonia. Pt reports that ss nausea and shortness of breath is getting much worse. O2 on 4L was 89%. Coronavirus screen: Client presents with at least one sign or symptom that may indicate coronavirus-19. Ebola Screen: Patient denies exposure to infectious person. Patient denies travel to an Ebola-affected area in the 21 days before illness onset. Initial Sepsis Screen: Does the patient have a suspected source of infection? No. Patient's initial sepsis screen is negative. Initial Sepsis Screen: Does the patient meet any 2 criteria? No. Patient's initial sepsis screen is negative. Risk Assessment: Do you want to hurt yourself or someone else? Patient reports no desire to harm self or others. Onset of symptoms was June 01, 2021. 09:26 Method Of Arrival: Wheelchair ss 09:26 Acuity: AMALIA 2 ss Triage Assessment: 12:07 General: Appears distressed, uncomfortable, ill, Behavior is cooperative, appropriate bp for age, anxious. Pain: Denies pain. EENT: No deficits noted. Neuro: Level of Consciousness is awake, alert, obeys commands, Oriented to person, place, time, situation, Appropriate for age. Cardiovascular: No deficits noted. Respiratory: Airway is patent Respiratory effort is labored, Respiratory pattern is symmetrical, tachypnea. GI: No signs and/or symptoms were reported involving the gastrointestinal system. : No signs and/or symptoms were reported regarding the genitourinary system. Derm: No deficits noted. Musculoskeletal: No deficits noted. Historical: - Allergies: 09:28 No Known Allergies; ss - PMHx: : Hypercholesterolemia; ss - Immunization history:: Client reports having NOT received the Covid vaccine. - Social history:: Smoking status: Patient denies any tobacco usage or history of. Screenin:10 Abuse screen: Denies threats or abuse. Denies injuries from another. Nutritional bp screening: No deficits noted. Tuberculosis screening: No symptoms or risk factors identified. Never had TB. Assessment: 12:10 General: SEE TRIAGE NOTE. bp Vital Signs: 09:26 Resp 16; Weight 102.06 kg; Height 6 ft. 4 in. (193.04 cm); Pain 6/10; ss 09:28 BP 125 / 74; Pulse 76; Temp 98.1; Pulse Ox 92% on 6 lpm NC; ss 10:30 BP 111 / 54; Pulse 67; Resp 24; Pulse Ox 90% on 6 lpm NC; bp 11:30 BP 113 / 63; Pulse 72; Resp 23; Pulse Ox 88% 6 lpm ; bp 09:26 Body Mass Index 27.39 (102.06 kg, 193.04 cm) ss ED Course: 09:04 Patient arrived in ED. mr 09:04 Humberto Naranjo DO is Private Physician. mr 09:14 Triston Naranjo is Attending Physician. sp3 09:28 Triage completed. ss 09:28 Arm band placed on right wrist. ss 10:03 Kannan Olivera, RN is Primary Nurse. bp 10:35 Patient has correct armband on for positive identification. Bed in low position. Call mh5 light in reach. Side rails up X 1. Warm blanket given. Pillow given. assistant buyer on. Pulse ox on. NIBP on. 10:54 XRAY Chest (1 view) In Process Unspecified. EDMS 11:10 Inserted saline lock: 20 gauge in left antecubital area, using aseptic technique. Blood bp collected. 11:53 initiated transfer to [facility]. bd 12:12 Efraín Valdovinos DO is Hospitalizing Provider. sp3 14:57 pt denied at [facility], no bed available at any critical access hospital,per Caesar Castillo. bd 19:30 Primary Nurse role handed off by Kannan Olivera RN mw2 06/05 00:05 Flakita Babin, DAGOBERTO is Primary Nurse. ch4 Administered Medications: 06/04 09:34 Drug: Zofran (Ondansetron) 4 mg Route: PO; ss 11:11 Follow up: Response: No adverse reaction bp 11:10 Drug: Decadron - Dexamethasone 10 mg Route: IVP; Site: left antecubital; bp 15:59 Follow up: Response: No adverse reaction bp 16:10 Drug: NS 0.9% 500 ml Route: IV; Rate: bolus; Site: left antecubital; bp Outcome: 12:13 Decision to Hospitalize by Provider. sp3 06/05 16:23 Patient left the ED. iw Signatures: Dispatcher [employer] EDMS Yoselyn Mathews Mike, Saima mr Stacy Osorio, RN RN Hemalatha Rios RN RN Bettie Coates [facility] Kannan Olivera RN RN Papi Vaughn [facility] Triston Naranjo sp3 Flakita Babin, DAGOBERTO RN ch4 Corrections: (The following items were deleted from the chart) 06/04 14:58 12:08 pt denied at [facility], no beds at any critical access hospital. bd bd
--- NOTE | 2021-06-04 13:14 | P.HP ---
Certification for Inpatient Patient admitted to: Inpatient With expected LOS: >2 Midnights Patient will require the following post-hospital care: None Practitioner: I am a practitioner with admitting privileges, knowledge of patient current condition, hospital course, and medical plan of care. Services: Services provided to patient in accordance with Admission requirements found in Title 42 Section 412.3 of the Code of Federal Regulations Patient History Date of Service: 06/04/21 Primary Care Provider: Dr. Naranjo; Cardiology-Dr. Fierro Reason for admission: Poor appetite, shortness of breath History of Present Illness: 65-year-old male with history of hypertension, hyperlipidemia, hypothyroidism, and GERD. Patient presented to the emergency room with increasing shortness of breath and poor oral intake. Patient recently diagnosed with COVID-19. He is unvaccinated. Patient was actually hospitalized then disc harged on 06/03/2021. Patient was dehydrated at the time. Patient received IV fluids with IV steroids. The patient was discharged home with oxygen. Since that time his oxygen requirement was above 4 L. Patient has noticed increased fatigue, shortness of breath, poor intake. On the last hospitalization it was found out that his thyroid level was supratherapeutic. His medications was recently decreased. His blood pressure medication was also decreased. He came to the ER for worsening symptoms. In the ER patient was evaluated. Chest x-ray shows worsening aeration bilateral. White count normal at 9.8, hemoglobin 14. Sodium 135, potassium 4.3. BUN of 29, creatinine 0.9 with a GFR of 76. Glucose 131. AST 53. ALT 52. Due to the lack of beds the patient was to be transferred for admission. No beds available. Patient admitted to our facility to further address. When I saw the patient patient appeared unchanged since the last time I saw him but oxygen requirement has increased. Currently on 6 L per nasal cannula. Patient reports increasing shortness of breath. Poor appetite noted. Allergies No Known Allergies Allergy (Unverified 06/02/21 15:40) Home medications list reviewed: Yes Home Medications: Ascorbic Acid [Vitamin C*] 500 mg PO TID #90 tablet 06/03/21 Cholecalciferol (Vitamin D3) [Vitamin D 1000 Iu Tab*] 2,000 unit PO DAILY #60 tab 06/03/21 Guaifen W/Codeine Syrup [ROBITUSSIN A-C Syrup*] 5 ml PO QID PRN #1 bottle 06/03/21 Levothyroxine Sodium [Levothyroxine] 75 mcg PO DAILY #30 capsule 06/03/21 Metoprolol Tartrate [Lopressor*] 12.5 mg PO BID 6AM 6PM #60 tab 06/03/21 Pravastatin [Pravachol*] 40 mg PO DAILY 06/03/21 Thiamine HCl [Vitamin B-1*] 100 mg PO BID #60 tablet 06/03/21 Zinc Sulfate [Zinc Sulfate*] 220 mg PO DAILY #30 cap 06/03/21 predniSONE [Prednisone*] 20 mg PO SEECOM #21 tab 06/03/21 - Past Medical/Surgical History -: Hypertension -: Hyperlipidemia -: Hypothyroidism -: GERD -: Back surgery -: Double hernia surgery -: Ankle surgery Psychosocial/ Personal History: Patient - Family History Family History: Reviewed- Non-Contributory - Social History Smoking Status: Never smoker Alcohol use: No CD- Drugs: No Caffeine use: No Place of Residence: Home Review of Systems General: Weakness, Malaise, As per HPI Eyes: Unremarkable ENT: Unremarkable Respiratory: Shortness of Breath, SOB with Excertion, As per HPI Cardiovascular: Unremarkable Gastrointestinal: Nausea, As per HPI Genitourinary: Unremarkable Musculoskeletal: As per HPI Integumentary: Unremarkable Neurological: As per HPI Lymphatics: Unremarkable Physical Examination - Studies Laboratory Data (last 24 hrs) 06/04/21 11:10: PT 12.4, INR 1.08 06/04/21 11:10: WBC 9.90 D, Hgb 14.6, Hct 42.8, Plt Count 160 D 06/04/21 11:10: Sodium 135 L, Potassium 4.3, BUN 29 H, Creatinine 0.99, Glucose 131 H, Magnesium 2.7 H, Total Bilirubin 0.7, AST 53 H, ALT 82 H, Alkaline Phosphatase 61 Assessment and Plan - Plan COVID: Positive, unvaccinated Chest x-ray 06/02/2021: COMPARISON: October 2015 TECHNIQUE: AP portable chest image was obtained 06/02/2021 9:09 am . FINDINGS: Focal airspace opacification is seen in the lower left lung field and there is some mild airspace opacification on the right. No failure or volume overload. Findings are consistent with a mild COVID-19 pneumonia. Heart and vasculature are normal. No measurable pleural effusion and no pneumothorax. No acute bony abnormality seen. No acute aortic findings suspected. IMPRESSION: Mild COVID-19 pneumonia pattern, most pronounced in the left base. CXR 06/04/2021: COMPARISON: Chest Single View dated 06/02/2021; CHEST PA AND LAT 2 VIEW dated 11/01/2015; CHEST PA AND LAT 2 VIEW dated 12/22/2014; CHEST PA AND LAT 2 VIEW dated 11/27/2012 FINDINGS: Widespread bilateral airspace disease with worsened aeration bilaterally though more prominent at the right lung base The heart size is within normal limits.No acute osseous abnormality. No significant pleural effusions or pneumothorax. IMPRESSION: Worsened aeration of the lungs which is concerning for multifocal pneumonia, including Covid-19. Physical Exam: GENERAL: Patient alert, cooperative. Oriented x3. Patient appears with poor oral intake. Skin dry. Currently on 6 L per nasal cannula. VITAL SIGNS: Reviewed HEENT: Head is normocephalic and atraumatic. Extraocular muscles are intact. Pupils are equal, round, and reactive to light and accommodation. Nares appeared normal. Mouth is dry. Mucous membranes are moist. NECK: Supple. No carotid bruits. No lymphadenopathy or thyromegaly. LUNGS: Clear to auscultation. No crackles or wheezes are heard. Currently on 6 L per nasal cannula HEART: Regular rate and rhythm, no appreciable gallops, rubs, murmurs or extra heart sounds ABDOMEN: Soft, nontender, and nondistended. Positive bowel sounds. No hepatosplenomegaly was noted. EXTREMITIES: Without any cyanosis, clubbing, rash, lesions or peripheral edema. NEUROLOGIC: The patient is oriented to person, place and time. Strength and sensation are grossly intact. Face is symmetric. SKIN: Skin appears dry. Impression: Dyspnea secondary to bilateral Covid pneumonia with hypoxia, unvaccinated, recurrent admission Hypertension Hyperlipidemia GERD Hypothyroidism Elevated liver function Plan: Dyspnea secondary to bilateral Covid pneumonia with hypoxia, unvaccinated, recurrent admission: Patient will be admitted for further evaluation and treatment. Patient now requiring 6 L per nasal cannula. Patient was recently discharged on 4 L with home oxygen and steroid. Will continue with IV Solu- Medrol, vitamin supplementation. Will provide medication for cough. Encourage incentive spirometer, proning and ambulation. Will have physical therapy and Occupational Therapy evaluate patient. Pulmonology will be consulted for further recommendation. Will monitor CRP and ferritin. Need to consider skilled placement or rehab for the patient if the patient continues to have poor conditioning. We will get dietary involved to help with daily needs. We will continue to monitor and reassess. Anticipate improvement over the next 72 hours.. Hypertension: Restart metoprolol. This was recently decreased to 12.5 mg 1 pill twice daily. Hold if blood pressure systolic less than 110 or heart rate less than 60. Hyperlipidemia: Due to slight elevation in liver function will hold his pravastatin 10 mg daily. GERD: Continue with Pepcid 20 mg 1 pill twice daily Hypothyroidism: Patient was recently found to be supratherapeutic. His medication was decreased at the last discharge. We will continue with levothyroxine 75 mcg daily. This will need to be rechecked in 4 to 6 weeks. Elevated liver function: Likely due to poor nutrition and Covid status. Will monitor liver function test. Code Status: Full Code DVT prophylaxis: Lovenox Advanced Care Planning-30 minutes: Home at discharge with the possibility of home health versus skilled placement versus inpatient rehab Discharge Plan: Home Plan to discharge in: 72 Hours - Advance Directives Does patient have a Living Will: Yes Does patient have a Durable POA for Healthcare: Yes - Code Status/Comfort Care Code Status Assessed: Yes (Patient is full code) Time Spent Managing Pts Care (In Minutes): 55
[2021-06-04 13:51] LABS: C-Reactive Protein 32.7 mg/L (<3.00); Ferritin 1185.6 ng/mL (26-388)
[2021-06-04] MEDS ORDERED: ONDANSETRON 4 MG/2 ML VIAL IV PRN (15:50)
[2021-06-04] MEDS ORDERED: GUAIFENESIN/DM 5 ML UCUP PO PRN (15:50)
[2021-06-04] MEDS: ASCORBIC ACID 500 MG TABLET PO SCH ×3 (15:50→21:00)
[2021-06-04] MEDS: ENSURE HIGH PROTEIN 237 ML CAN PO SCH ×2 (15:50→21:00)
[2021-06-04] MEDS: METHYLPREDNISOLONE 40 MG INJ IV SCH (17:00)
[2021-06-04] MEDS: METOPROLOL TAR 25 MG TAB PO SCH (18:00)
[2021-06-04] MEDS: ACETAMINOPHEN 500 MG TAB PO PRN (20:00)
[2021-06-04] MEDS ORDERED: ACETAMINOPHEN 500 MG TAB ONE (20:17)
[2021-06-04] MEDS: THIAMINE HCL 100 MG TABLET PO SCH (21:00)
[2021-06-04] MEDS: FLUTICASONE 50MCG NASAL SPRAY NAS SCH (21:00)
[2021-06-04] MEDS: LACTOBACILLUS/ACIDOPHILUS TAB PO SCH (21:00)
[2021-06-04] MEDS: FAMOTIDINE 20 MG TAB PO SCH (21:00)
[2021-06-04] MEDS ORDERED: THIAMINE HCL 100 MG TABLET ONE (21:25)
[2021-06-04] MEDS ORDERED: ASCORBIC ACID 500 MG TABLET ONE (21:25)
[2021-06-04] MEDS ORDERED: FAMOTIDINE 20 MG TAB ONE (21:25)
[2021-06-04] MEDS ORDERED: LACTOBACILLUS/ACIDOPHILUS TAB ONE (21:51)
[2021-06-05] MEDS: METHYLPREDNISOLONE 40 MG INJ IV SCH ×3 (01:00→17:09)
[2021-06-05 02:42] LABS: Absolute Lymphocytes (CBC) 0.3 K/uL (0.7-4.9); Basophils % 0.1 % (0-1.3); Hematocrit 41.6 % (39.6-49.0); Lymphocytes % 3.8 % (15.3-44.8); MPV 9.6 fL (7.6-11.3); RBC Red Blood Cell Count 5.01 M/uL (4.33-5.43)
[2021-06-05] MEDS ORDERED: METHYLPREDNISOLONE 40 MG INJ ONE ×2 (02:50→08:27)
[2021-06-05 03:12] LABS: Albumin 2.9 g/dL (3.4-5.0); Bilirubin Total 0.6 mg/dL (0.2-1.0); C-Reactive Protein 47.3 mg/L (<3.00); Magnesium 2.8 mg/dL (1.8-2.4); Potassium 4.2 mmol/L (3.5-5.1); Protein, Total 6.5 g/dL (6.4-8.2)
[2021-06-05 03:24] LABS: Blood Morphology Comment NOT SEEN (NOT SEEN); Platelet Estimate ADEQ
[2021-06-05] MEDS: METOPROLOL TAR 25 MG TAB PO SCH ×2 (05:40→17:15)
--- NOTE | 2021-06-05 06:19 | P.PN ---
Subjective Date of Service: 06/05/21 Primary Care Provider: Dr. Naranjo; Cardiology-Dr. Fierro Chief Complaint: Poor appetite, shortness of breath Subjective: Other (Overall improved. Currently on 6 l/m) Physical Examination - Vital Signs Temperature: 98.4 F Blood Pressure: 114/63 Pulse: 50 Respirations: 20 Pulse Ox (%): 92 - Studies Laboratory Data (last 24 hrs) 06/04/21 11:10: PT 12.4, INR 1.08 06/04/21 11:10: WBC 9.90 D, Hgb 14.6, Hct 42.8, Plt Count 160 D 06/04/21 11:10: Sodium 135 L, Potassium 4.3, BUN 29 H, Creatinine 0.99, Glucose 131 H, Magnesium 2.7 H, Total Bilirubin 0.7, AST 53 H, ALT 82 H, Alkaline Phosphatase 61 Assessment & Plan Discharge Plan: Home Plan to discharge in: 48 Hours Physician Review Additional Text: COVID: Positive, unvaccinated Chest x-ray 06/02/2021: COMPARISON: October 2015 TECHNIQUE: AP portable chest image was obtained 06/02/2021 9:09 am . FINDINGS: Focal airspace opacification is seen in the lower left lung field and there is some mild airspace opacification on the right. No failure or volume overload. Findings are consistent with a mild COVID-19 pneumonia. Heart and vasculature are normal. No measurable pleural effusion and no pneumothorax. No acute bony abnormality seen. No acute aortic findings suspected. IMPRESSION: Mild COVID-19 pneumonia pattern, most pronounced in the left base. CXR 06/04/2021: COMPARISON: Chest Single View dated 06/02/2021; CHEST PA AND LAT 2 VIEW dated 11/01/2015; CHEST PA AND LAT 2 VIEW dated 12/22/2014; CHEST PA AND LAT 2 VIEW dated 11/27/2012 FINDINGS: Widespread bilateral airspace disease with worsened aeration bilaterally though more prominent at the right lung base The heart size is within normal limits.No acute osseous abnormality. No significant pleural effusions or pneumothorax. IMPRESSION: Worsened aeration of the lungs which is concerning for multifocal pneumonia, including Covid-19. Physical Exam: GENERAL: Patient alert, cooperative. Oriented x3. Patient appears with poor oral intake. Skin dry. Currently on 6 L per nasal cannula. VITAL SIGNS: Reviewed HEENT: Head is normocephalic and atraumatic. Extraocular muscles are intact. Pupils are equal, round, and reactive to light and accommodation. Nares appeared normal. Mouth is dry. Mucous membranes are moist. NECK: Supple. No carotid bruits. No lymphadenopathy or thyromegaly. LUNGS: Clear to auscultation. No crackles or wheezes are heard. Currently on 6 L per nasal cannula HEART: Regular rate and rhythm, no appreciable gallops, rubs, murmurs or extra heart sounds ABDOMEN: Soft, nontender, and nondistended. Positive bowel sounds. No hepatosplenomegaly was noted. EXTREMITIES: Without any cyanosis, clubbing, rash, lesions or peripheral edema. NEUROLOGIC: The patient is oriented to person, place and time. Strength and sensation are grossly intact. Face is symmetric. SKIN: Skin appears dry. Impression: Dyspnea secondary to bilateral Covid pneumonia with hypoxia, unvaccinated, recurrent admission Hypertension Hyperlipidemia GERD Hypothyroidism Elevated liver function Plan: Dyspnea secondary to bilateral Covid pneumonia with hypoxia, unvaccinated, recurrent admission: Patient remains on 6 L per nasal cannula. Continue with IV Solu-Medrol, vitamin supplementation. Will have physical therapy assess ambulation. Encourage oral intake. Will get dietary to address daily needs. Continue to wean off oxygen to maintain sats above 93%. May be able to send back home on oxygen if less than 4 L. Pulmonology consulted. Await recommendations. Encourage incentive spirometer, proning, ambulation. We will continue to reassess. Likely home in the next 48 hours. Hypertension: Continue metoprolol 12.5 mg 1 pill twice daily. Hold if blood pressure systolic less than 110 or heart rate less than 60. Hyperlipidemia: Due to slight elevation in liver function will hold his pravastatin 10 mg daily. GERD: Continue with Pepcid 20 mg 1 pill twice daily Hypothyroidism: Patient was recently found to be supratherapeutic. His medication was decreased at the last discharge. We will continue with levothyroxine 75 mcg daily. This will need to be rechecked in 4 to 6 weeks. Elevated liver function: Liver function improved. Likely due to poor nutrition and Covid status. Will monitor liver function test. Code Status: Full Code DVT prophylaxis: Lovenox Advanced Care Planning-30 minutes: Home at discharge Time Spent Managing Pts Care (In Minutes): 55
[2021-06-05] MEDS: LEVOTHYROXINE SOD 0.075 MG TAB PO SCH (07:15)
[2021-06-05] MEDS ORDERED: FOLIC ACID 1 MG TABLET ONE (08:26)
[2021-06-05] MEDS ORDERED: VITAMIN D 1000 UNIT TAB ONE (08:26)
[2021-06-05] MEDS ORDERED: ZINC SULFATE 220 MG CAP ONE (08:26)
[2021-06-05] MEDS ORDERED: ASCORBIC ACID 500 MG TABLET ONE (08:26)
[2021-06-05] MEDS ORDERED: ASPIRIN EC 81 MG TAB PO ONE (08:26)
[2021-06-05] MEDS ORDERED: THIAMINE HCL 100 MG TABLET ONE (08:26)
[2021-06-05] MEDS ORDERED: FAMOTIDINE 20 MG TAB ONE (08:27)
[2021-06-05] MEDS ORDERED: ENOXAPARIN 40 MG/0.4 ML SQ ONE (08:27)
[2021-06-05] MEDS: FLUTICASONE 50MCG NASAL SPRAY NAS SCH ×2 (08:35→20:02)
[2021-06-05] MEDS: ASPIRIN EC 81 MG TAB PO SCH (08:35)
[2021-06-05] MEDS: FOLIC ACID 1 MG TABLET PO SCH (08:35)
[2021-06-05] MEDS: ENSURE HIGH PROTEIN 237 ML CAN PO SCH ×3 (08:35→20:02)
[2021-06-05] MEDS: LACTOBACILLUS/ACIDOPHILUS TAB PO SCH ×2 (08:36→20:01)
[2021-06-05] MEDS: THIAMINE HCL 100 MG TABLET PO SCH ×2 (08:36→20:02)
[2021-06-05] MEDS: VITAMIN D 1000 UNIT TAB PO SCH (08:36)
[2021-06-05] MEDS: ASCORBIC ACID 500 MG TABLET PO SCH ×4 (08:36→20:02)
[2021-06-05] MEDS: ZINC SULFATE 220 MG CAP PO SCH (08:36)
[2021-06-05] MEDS: FAMOTIDINE 20 MG TAB PO SCH ×2 (08:36→20:02)
[2021-06-05] MEDS: ENOXAPARIN 40 MG/0.4 ML SQ SCH (08:36)
[2021-06-05] MEDS: IVERMECTIN 3 MG TABLET PO SCH (12:20)
--- NOTE | 2021-06-05 12:21 | P.CNS ---
Date of Consult: 06/05/21 Primary Care Provider: Dr. Naranjo; Cardiology-Dr. Fierro Chief Complaint: Poor appetite, shortness of breath History of Present Illness: age 65 metabolic synd.AW SOB/Covid penumonia Allergies No Known Allergies Allergy (Unverified 06/02/21 15:40) Home Medications: Ascorbic Acid [Vitamin C*] 500 mg PO TID #90 tablet 06/03/21 Cholecalciferol (Vitamin D3) [Vitamin D 1000 Iu Tab*] 2,000 unit PO DAILY #60 t ab 06/03/21 Guaifen W/Codeine Syrup [ROBITUSSIN A-C Syrup*] 5 ml PO QID PRN #1 bottle 06/03/21 Levothyroxine Sodium [Levothyroxine] 75 mcg PO DAILY #30 capsule 06/03/21 Metoprolol Tartrate [Lopressor*] 12.5 mg PO BID 6AM 6PM #60 tab 06/03/21 Pravastatin [Pravachol*] 40 mg PO DAILY 06/03/21 Thiamine HCl [Vitamin B-1*] 100 mg PO BID #60 tablet 06/03/21 Zinc Sulfate [Zinc Sulfate*] 220 mg PO DAILY #30 cap 06/03/21 predniSONE [Prednisone*] 20 mg PO SEECOM #21 tab 06/03/21 - Past Medical/Surgical History -: Hypertension -: Hyperlipidemia -: Hypothyroidism -: GERD -: Back surgery -: Double hernia surgery -: Ankle surgery Psychosocial/ Personal History: Patient - Social History Alcohol use: No CD- Drugs: No Caffeine use: No Place of Residence: Home Review of Systems General: Weakness Respiratory: Shortness of Breath Physical Examination Temp Pulse Resp BP Pulse Ox 98.4 F 50 20 114/63 92 06/05/21 11:49 06/05/21 11:49 06/05/21 11:49 06/05/21 11:49 06/05/21 11:49 General: Alert, Oriented x3, Cooperative - Problems (1) Pneumonia due to 2019-nCoV Current Visit: No Status: Acute Plan: age 65 AW COVID penumonia/ AbnormalLFT minimal O2/CXRY COVID/ plan for DC/ ivermectin
--- NOTE | 2021-06-05 16:58 | EKG ---
Test Date: 2021-06-04 Test Time: 10:45:48 Development Mgr: ELVIA MEASUREMENT RESULTS: Intervals: Rate: 67 ID: [id number] QRSD: 92 QT: 398 QTc: 420 [place]: P: 19 ID: [id number] QRS: 8 T: 48 INTERPRETIVE STATEMENTS: Normal sinus rhythm Incomplete right bundle branch block Borderline ECG Compared to ECG 06/02/2021 09:22:28 No significant changes Electronically Signed On 06-05-21 16:53:57 CDT by Hilario Donald
[2021-06-05] MEDS: ACETAMINOPHEN 500 MG TAB PO PRN (20:02)
[2021-06-05] MEDS ORDERED: MAGNES/ALUMIN/SIMET 30ML UCUP PO PRN (22:28)
[2021-06-06] MEDS: METHYLPREDNISOLONE 40 MG INJ IV SCH ×3 (00:09→16:08)
[2021-06-06 05:31] LABS: Absolute Lymphocytes (CBC) 0.4 K/uL (0.7-4.9); Basophils % 0.2 % (0-1.3); Hematocrit 41.7 % (39.6-49.0); Lymphocytes % 5.2 % (15.3-44.8); MPV 9.7 fL (7.6-11.3); RBC Red Blood Cell Count 5.04 M/uL (4.33-5.43)
[2021-06-06] MEDS: METOPROLOL TAR 25 MG TAB PO SCH ×2 (05:49→16:05)
[2021-06-06 05:54] LABS: ALT/SGPT 85 U/L (12-78); AST/SGOT 35 U/L (15-37); Albumin 2.8 g/dL (3.4-5.0); Alkaline Phosphatase 57 U/L (45-117); BUN Blood Urea Nitrogen 29 mg/dL (7-18); Bicarbonate 26 mmol/L (21-32); Bilirubin Total 0.7 mg/dL (0.2-1.0); Ferritin 1030.6 ng/mL (26-388); Glucose Level 175 mg/dL (74-106); Magnesium 2.9 mg/dL (1.8-2.4); Protein, Total 6.4 g/dL (6.4-8.2); Sodium Level 135 mmol/L (136-145)
[2021-06-06] MEDS: LEVOTHYROXINE SOD 0.075 MG TAB PO SCH (06:08)
--- NOTE | 2021-06-06 06:19 | P.PN ---
Subjective Date of Service: 06/06/21 Primary Care Provider: Dr. Naranjo; Cardiology-Dr. Fierro Chief Complaint: Poor appetite, shortness of breath Subjective: Other (Overall stable. Currently on 4 L per nasal cannula.) Physical Examination - Vital Signs Temperature: 97.9 F Blood Pressure: 105/62 Pulse: 58 Respirations: 16 Pulse Ox (%): 91 Assessment & Plan Discharge Plan: Other (Inpatient rehab) Plan to discharge in: 24 Hours Physician Review Additional Text: COVID: Positive, unvaccinated Chest x-ray 06/02/2021: COMPARISON: October 2015 TECHNIQUE: AP portable chest image was obtained 06/02/2021 9:09 am . FINDINGS: Focal airspace opacification is seen in the lower left lung field and there is some mild airspace opacification on the right. No failure or volume overload. Findings are consistent with a mild COVID-19 pneumonia. Heart and vasculature are normal. No measurable pleural effusion and no pneumothorax. No acute bony abnormality seen. No acute aortic findings suspected. IMPRESSION: Mild COVID-19 pneumonia pattern, most pronounced in the left base. CXR 06/04/2021: COMPARISON: Chest Single View dated 06/02/2021; CHEST PA AND LAT 2 VIEW dated 11/01/2015; CHEST PA AND LAT 2 VIEW dated 12/22/2014; CHEST PA AND LAT 2 VIEW dated 11/27/2012 FINDINGS: Widespread bilateral airspace disease with worsened aeration bilaterally though more prominent at the right lung base The heart size is within normal limits.No acute osseous abnormality. No significant pleural effusions or pneumothorax. IMPRESSION: Worsened aeration of the lungs which is concerning for multifocal pneumonia, including Covid-19. Physical Exam: GENERAL: Patient alert, cooperative. Oriented x3. Patient appears with poor oral intake. Skin dry. Currently on 6 L per nasal cannula. VITAL SIGNS: Reviewed HEENT: Head is normocephalic and atraumatic. Extraocular muscles are intact. Pupils are equal, round, and reactive to light and accommodation. Nares appeared normal. Mouth is dry. Mucous membranes are moist. NECK: Supple. No carotid bruits. No lymphadenopathy or thyromegaly. LUNGS: Clear to auscultation. No crackles or wheezes are heard. Currently on 6 L per nasal cannula HEART: Regular rate and rhythm, no appreciable gallops, rubs, murmurs or extra heart sounds ABDOMEN: Soft, nontender, and nondistended. Positive bowel sounds. No hepatosplenomegaly was noted. EXTREMITIES: Without any cyanosis, clubbing, rash, lesions or peripheral edema. NEUROLOGIC: The patient is oriented to person, place and time. Strength and sensation are grossly intact. Face is symmetric. SKIN: Skin appears dry. Impression: Dyspnea secondary to bilateral Covid pneumonia with hypoxia, unvaccinated, recurrent admission Hypertension Hyperlipidemia GERD Hypothyroidism Elevated liver function Plan: Dyspnea secondary to bilateral Covid pneumonia with hypoxia, unvaccinated, recurrent admission: Patient improved. Currently on 4 L per nasal cannula. Continue IV steroids and supplementation. Some edema to the lower extremities. Will check venous Doppler. Physical therapy to assess ambulation. Consider inpatient rehab for the patient. Encourage oral intake. Continue to wean off oxygen to maintain sats above 93%. Encourage ambulation, incentive spirometer, proning. Possible discharge to inpatient rehab if approved. Hypertension: Continue metoprolol 12.5 mg 1 pill twice daily. Hold if blood pressure systolic less than 110 or heart rate less than 60. Hyperlipidemia: Due to slight elevation in liver function will hold his pravastatin 10 mg daily. GERD: Continue with Pepcid 20 mg 1 pill twice daily Hypothyroidism: Patient was recently found to be supratherapeutic. His medication was decreased at the last discharge. We will continue with levothyroxine 75 mcg daily. This will need to be rechecked in 4 to 6 weeks. Elevated liver function: Liver function improved. Likely due to poor nutrition and Covid status. Will monitor liver function test. Code Status: Full Code DVT prophylaxis: Lovenox Advanced Care Planning-30 minutes: Inpatient rehab Time Spent Managing Pts Care (In Minutes): 55
[2021-06-06] MEDS: ZINC SULFATE 220 MG CAP PO SCH (08:42)
[2021-06-06] MEDS: LACTOBACILLUS/ACIDOPHILUS TAB PO SCH ×2 (08:42→20:10)
[2021-06-06] MEDS: FOLIC ACID 1 MG TABLET PO SCH (08:42)
[2021-06-06] MEDS: VITAMIN D 1000 UNIT TAB PO SCH (08:42)
[2021-06-06] MEDS: THIAMINE HCL 100 MG TABLET PO SCH ×2 (08:42→20:10)
[2021-06-06] MEDS: ASPIRIN EC 81 MG TAB PO SCH (08:43)
[2021-06-06] MEDS: ENSURE HIGH PROTEIN 237 ML CAN PO SCH (08:43)
[2021-06-06] MEDS: FLUTICASONE 50MCG NASAL SPRAY NAS SCH ×2 (08:43→20:10)
[2021-06-06] MEDS: FAMOTIDINE 20 MG TAB PO SCH ×2 (08:43→20:09)
[2021-06-06] MEDS: ENOXAPARIN 40 MG/0.4 ML SQ SCH (08:43)
[2021-06-06] MEDS: ASCORBIC ACID 500 MG TABLET PO SCH ×4 (08:44→20:09)
[2021-06-06] MEDS ORDERED: ENSURE ENLIVE 237 ML CAN PO PRN (12:37)
[2021-06-06] MEDS: ACETAMINOPHEN 500 MG TAB PO PRN (14:01)
--- NOTE | 2021-06-06 17:15 | RAD REPORT ---
EXAM DESCRIPTION: US - Extrem Venous W Compress Chele - 06/06/2021 5:03 pm CLINICAL HISTORY: edema COMPARISON: None. TECHNIQUE: Real-time sonographic evaluation of the bilateral lower extremity common femoral, superfi cial femoral, popliteal and posterior tibial veins was performed. FINDINGS: Normal compressibility, flow augmentation, phasic flow and spontaneous flow are identified in the left and right lower extremity common femoral, superficial femoral, popliteal and posterior t ibial veins. No intraluminal filling defects seen. IMPRESSION: No DVT in either lower extremity.
[2021-06-07] MEDS: LORazepam 2 MG/ML VIAL IV PRN ×2 (00:40→20:00)
[2021-06-07] MEDS: MELATONIN 5 MG TABLET PO PRN ×2 (00:40→19:58)
[2021-06-07] MEDS: METHYLPREDNISOLONE 40 MG INJ IV SCH ×3 (00:40→16:06)
[2021-06-07] MEDS: LEVOTHYROXINE SOD 0.075 MG TAB PO SCH (05:27)
[2021-06-07] MEDS: METOPROLOL TAR 25 MG TAB PO SCH ×2 (05:27→16:28)
[2021-06-07 06:10] LABS: ALT/SGPT 78 U/L (12-78); Albumin 2.8 g/dL (3.4-5.0); Alkaline Phosphatase 58 U/L (45-117); BUN Blood Urea Nitrogen 28 mg/dL (7-18); Bicarbonate 27 mmol/L (21-32); Bilirubin Total 0.8 mg/dL (0.2-1.0); C-Reactive Protein 9.68 mg/L (<3.00); Ferritin 859.2 ng/mL (26-388); Glucose Level 166 mg/dL (74-106); Protein, Total 6.4 g/dL (6.4-8.2); Sodium Level 136 mmol/L (136-145)
[2021-06-07 06:11] LABS: AST/SGOT 33 U/L (15-37); Magnesium 2.8 mg/dL (1.8-2.4); Potassium 4.3 mmol/L (3.5-5.1)
[2021-06-07 06:15] LABS: Absolute Lymphocytes (CBC) 0.6 K/uL (0.7-4.9); Basophils % 0.6 % (0-1.3); Hematocrit 40.5 % (39.6-49.0); Lymphocytes % 6.6 % (15.3-44.8); MPV 9.7 fL (7.6-11.3); RBC Red Blood Cell Count 4.86 M/uL (4.33-5.43)
--- NOTE | 2021-06-07 06:18 | P.PN ---
Subjective Date of Service: 06/07/21 Primary Care Provider: Dr. Naranjo; Cardiology-Dr. Fierro Chief Complaint: Poor appetite, shortness of breath Subjective: Improving Physical Examination - Vital Signs Temperature: 97.5 F Blood Pressure: 137/65 Pulse: 61 Respirations: 24 Pulse Ox (%): 91 Assessment & Plan Discharge Plan: Other (inpatient rehab) Plan to discharge in: 24 Hours Physician Review Additional Text: COVID: Positive, unvaccinated Chest x-ray 06/02/2021: COMPARISON: October 2015 TECHNIQUE: AP portable chest image was obtained 06/02/2021 9:09 am . FINDINGS: Focal airspace opacification is seen in the lower left lung field and there is some mild airspace opacification on the right. No failure or volume overload. Findings are consistent with a mild COVID-19 pneumonia. Heart and vasculature are normal. No measurable pleural effusion and no pneumothorax. No acute bony abnormality seen. No acute aortic findings suspected. IMPRESSION: Mild COVID-19 pneumonia pattern, most pronounced in the left base. CXR 06/04/2021: COMPARISON: Chest Single View dated 06/02/2021; CHEST PA AND LAT 2 VIEW dated 11/01/2015; CHEST PA AND LAT 2 VIEW dated 12/22/2014; CHEST PA AND LAT 2 VIEW dated 11/27/2012 FINDINGS: Widespread bilateral airspace disease with worsened aeration bilaterally though more prominent at the right lung base The heart size is within normal limits.No acute osseous abnormality. No significant pleural effusions or pneumothorax. IMPRESSION: Worsened aeration of the lungs which is concerning for multifocal pneumonia, including Covid-19. Physical Exam: GENERAL: Patient alert, cooperative. Oriented x3. Patient appears with poor oral intake. Skin dry. Currently on 6 L per nasal cannula. VITAL SIGNS: Reviewed HEENT: Head is normocephalic and atraumatic. Extraocular muscles are intact. Pupils are equal, round, and reactive to light and accommodation. Nares appeared normal. Mouth is dry. Mucous membranes are moist. NECK: Supple. No carotid bruits. No lymphadenopathy or thyromegaly. LUNGS: Clear to auscultation. No crackles or wheezes are heard. Currently on 6 L per nasal cannula HEART: Regular rate and rhythm, no appreciable gallops, rubs, murmurs or extra heart sounds ABDOMEN: Soft, nontender, and nondistended. Positive bowel sounds. No hepatosplenomegaly was noted. EXTREMITIES: Without any cyanosis, clubbing, rash, lesions or peripheral edema. NEUROLOGIC: The patient is oriented to person, place and time. Strength and sensation are grossly intact. Face is symmetric. SKIN: Skin appears dry. Impression: Dyspnea secondary to bilateral Covid pneumonia with hypoxia, unvaccinated, recurrent admission Hypertension Hyperlipidemia GERD Hypothyroidism Elevated liver function Plan: Dyspnea secondary to bilateral Covid pneumonia with hypoxia, unvaccinated, recurrent admission: Patient improved. Currently on 3.5 L per nasal cannula. Continue IV steroids and supplementation. Venous Doppler negative. Continue physical therapy. Encourage incentive spirometer, ambulation and proning. Patient has been approved for inpatient rehab. Anticipate transfer to inpatient rehab tomorrow. Hypertension: Continue metoprolol 12.5 mg 1 pill twice daily. Hold if blood pressure systolic less than 110 or heart rate less than 60. Hyperlipidemia: Due to slight elevation in liver function will hold his pravastatin 10 mg daily. GERD: Continue with Pepcid 20 mg 1 pill twice daily Hypothyroidism: Patient was recently found to be supratherapeutic. His medication was decreased at the last discharge. We will continue with levothyroxine 75 mcg daily. This will need to be rechecked in 4 to 6 weeks. Elevated liver function: Liver function improved. Likely due to poor nutrition and Covid status. Will monitor liver function test. Code Status: Full Code DVT prophylaxis: Lovenox Advanced Care Planning-30 minutes: Inpatient rehab Time Spent Managing Pts Care (In Minutes): 55
[2021-06-07 07:02] LABS: Blood Morphology Comment NOT SEEN (NOT SEEN); Platelet Estimate ADEQ; White Blood Cell Scan OK (OK)
[2021-06-07] MEDS: VITAMIN D 1000 UNIT TAB PO SCH (08:32)
[2021-06-07] MEDS: FOLIC ACID 1 MG TABLET PO SCH (08:32)
[2021-06-07] MEDS: IVERMECTIN 3 MG TABLET PO SCH (08:32)
[2021-06-07] MEDS: ASCORBIC ACID 500 MG TABLET PO SCH ×4 (08:32→19:59)
[2021-06-07] MEDS: ZINC SULFATE 220 MG CAP PO SCH (08:33)
[2021-06-07] MEDS: ASPIRIN EC 81 MG TAB PO SCH (08:33)
[2021-06-07] MEDS: THIAMINE HCL 100 MG TABLET PO SCH ×2 (08:33→20:00)
[2021-06-07] MEDS: FAMOTIDINE 20 MG TAB PO SCH ×2 (08:33→19:58)
[2021-06-07] MEDS: ENOXAPARIN 40 MG/0.4 ML SQ SCH (08:34)
[2021-06-07] MEDS: FLUTICASONE 50MCG NASAL SPRAY NAS SCH ×2 (08:34→20:01)
[2021-06-07] MEDS: LACTOBACILLUS/ACIDOPHILUS TAB PO SCH ×2 (08:34→19:59)
--- NOTE | 2021-06-07 14:44 | P.PN ---
Subjective Date of Service: 06/07/21 Primary Care Provider: Dr. Naranjo; Cardiology-Dr. Fierro Chief Complaint: SOB Subjective: Improving (Stable) Review of Systems General: Weakness, Malaise Respiratory: Shortness of Breath Physical Examination - Vital Signs Temperature: 97.8 F Blood Pressure: 113/61 Pulse: 63 Respirations: 23 Pulse Ox (%): 92 - Physical Exam General: Alert, Cooperative Assessment & Plan - Problems (Diagnosis) (1) Pneumonia due to 2019-nCoV Current Visit: No Status: Acute Plan: Resp failure/ on 5 l NCcW weaning/ las andmeds reviewed
[2021-06-07] MEDS ORDERED: predniSONE 20 MG TAB PO SCH (21:00)
[2021-06-08] MEDS: METHYLPREDNISOLONE 40 MG INJ IV SCH ×2 (00:22→07:51)
[2021-06-08] MEDS: METOPROLOL TAR 25 MG TAB PO SCH ×2 (05:20→17:33)
[2021-06-08 05:37] LABS: Absolute Lymphocytes (CBC) 0.5 K/uL (0.7-4.9); Hematocrit 39.1 % (39.6-49.0); Lymphocytes % 6.4 % (15.3-44.8); MPV 9.2 fL (7.6-11.3); RBC Red Blood Cell Count 4.71 M/uL (4.33-5.43)
[2021-06-08 06:03] LABS: ALT/SGPT 82 U/L (12-78); AST/SGOT 34 U/L (15-37); Albumin 2.6 g/dL (3.4-5.0); Alkaline Phosphatase 48 U/L (45-117); BUN Blood Urea Nitrogen 27 mg/dL (7-18); Bicarbonate 26 mmol/L (21-32); Bilirubin Total 0.7 mg/dL (0.2-1.0); C-Reactive Protein 5.83 mg/L (<3.00); Ferritin 755.5 ng/mL (26-388); Glucose Level 148 mg/dL (74-106); Magnesium 2.4 mg/dL (1.8-2.4); Protein, Total 5.7 g/dL (6.4-8.2); Sodium Level 137 mmol/L (136-145)
[2021-06-08] MEDS: LEVOTHYROXINE SOD 0.075 MG TAB PO SCH (06:03)
--- NOTE | 2021-06-08 06:26 | P.DS ---
Admission Date: 06/04/21 Discharge Date: 06/08/21 Primary Care Provider: Dr. Naranjo; Cardiology-Dr. Fierro Disposition: TRANSFER TO INPATIENT REHAB Discharge Condition: GOOD Reason for Admission: Poor appetite, shortness of breath Consultations: Pulmonary-Dr. Marie Procedures: COVID: Positive, unvaccinated Chest x-ray 06/02/2021: COMPARISON: October 2015 TECHNIQUE: AP portable chest image was obtained 06/02/2021 9:09 am . FINDINGS: Focal airspace opacification is seen in the lower left lung field and there is some mild airspace opacification on the right. No failure or volume overload. Findings are consistent with a mild COVID-19 pneumonia. Heart and vasculature are normal. No measurable pleural effusion and no pneumot horax. No acute bony abnormality seen. No acute aortic findings suspected. IMPRESSION: Mild COVID-19 pneumonia pattern, most pronounced in the left base. CXR 06/04/2021: COMPARISON: Chest Single View dated 06/02/2021; CHEST PA AND LAT 2 VIEW dated 11/01/2015; CHEST PA AND LAT 2 VIEW dated 12/22/2014; CHEST PA AND LAT 2 VIEW dated 11/27/2012 FINDINGS: Widespread bilateral airspace disease with worsened aeration bilaterally though more prominent at the right lung base The heart size is within normal limits.No acute osseous abnormality. No significant pleural effusions or pneumothorax. IMPRESSION: Worsened aeration of the lungs which is concerning for multifocal pneumonia, including Covid-19. Medical problem list: Dyspnea secondary to bilateral Covid pneumonia with hypoxia, unvaccinated, recurrent admission Hypertension Hyperlipidemia GERD Hypothyroidism Elevated liver function Brief History of Present Illness: 65-year-old male with history of hypertension, hyperlipidemia, hypothyroidism, and GERD. Patient presented to the emergency room with increasing shortness of breath and poor oral intake. Patient recently diagnosed with COVID-19. He is unvaccinated. Patient was actually hospitalized then discharged on 06/03/2021. Patient was dehydrated at the time. Patient received IV fluids with IV steroids. The patient was discharged home with oxygen. Since that time his oxygen requirement was above 4 L. Patient has noticed increased fatigue, shortness of breath, poor intake. On the last hospitalization it was found out that his thyroid level was supratherapeutic. His medications was recently decreased. His blood pressure medication was also decreased. He came to the ER for worsening symptoms. In the ER patient was evaluated. Chest x-ray shows worsening aeration bilateral. White count normal at 9.8, hemoglobin 14. Sodium 135, potassium 4.3. BUN of 29, creatinine 0.9 with a GFR of 76. Glucose 131. AST 53. ALT 52. Due to the lack of beds the patient was to be transferred for admission. No beds available. Patient admitted to our facility to further address. When I saw the patient patient appeared unchanged since the last time I saw him but oxygen requirement has increased. Currently on 6 L per nasal cannula. Patient reports increasing shortness of breath. Poor appetite noted. Hospital Course: Plan: Dyspnea secondary to bilateral Covid pneumonia with hypoxia, unvaccinated, recurrent admission: Patient improved. Currently on 3.5 L per nasal cannula. Continue IV steroids and supplementation. Venous Doppler negative. Continue physical therapy. Encourage incentive spirometer, ambulation and proning. Patient has been approved for inpatient rehab. Anticipate transfer to inpatient rehab tomorrow. Hypertension: Continue metoprolol 12.5 mg 1 pill twice daily. Hold if blood pressure systolic less than 110 or heart rate less than 60. Hyperlipidemia: Due to slight elevation in liver function will hold his pravastatin 10 mg daily. GERD: Continue with Pepcid 20 mg 1 pill twice daily Hypothyroidism: Patient was recently found to be supratherapeutic. His medication was decreased at the last discharge. We will continue with levothyroxine 75 mcg daily. This will need to be rechecked in 4 to 6 weeks. Elevated liver function: Liver function improved. Likely due to poor nutrition and Covid status. Will monitor liver function test. Code Status: Full Code DVT prophylaxis: Lovenox Advanced Care Planning-30 minutes: Inpatient rehab Time Spent Managing Pts Care (In Minutes): 55 Vital Signs/Physical Exam: Temp Pulse Resp BP Pulse Ox 98.7 F 70 24 H 107/53 L 87 L 06/08/21 04:00 06/08/21 04:00 06/08/21 04:00 06/08/21 04:00 06/08/21 04:00 Laboratory Data at Discharge: WBC 8.60 K/uL (4.3-10.9) 06/08/21 05:14 Hgb 13.3 g/dL (13.6-17.9) L 06/08/21 05:14 Hct 39.1 % (39.6-49.0) L 06/08/21 05:14 Plt Count 246 K/uL (152-406) D 06/08/21 05:14 PT 12.4 SECONDS (9.5-12.5) 06/04/21 11:10 INR 1.08 06/04/21 11:10 Sodium 137 mmol/L (136-145) 06/08/21 05:14 Potassium 4.0 mmol/L (3.5-5.1) 06/08/21 05:14 BUN 27 mg/dL (7-18) H 06/08/21 05:14 Creatinine 0.72 mg/dL (0.55-1.3) 06/08/21 05:14 Glucose 148 mg/dL (74-106) H 06/08/21 05:14 Magnesium 2.4 mg/dL (1.8-2.4) 06/08/21 05:14 Total Bilirubin 0.7 mg/dL (0.2-1.0) 06/08/21 05:14 AST 34 U/L (15-37) 06/08/21 05:14 ALT 82 U/L (12-78) H 06/08/21 05:14 Alkaline Phosphatase 48 U/L (45-117) 06/08/21 05:14 Home Medications: Ascorbic Acid [Vitamin C*] 500 mg PO TID #90 tablet 06/03/21 Cholecalciferol (Vitamin D3) [Vitamin D 1000 Iu Tab*] 2,000 unit PO DAILY #60 tab 06/03/21 Guaifen W/Codeine Syrup [ROBITUSSIN A-C Syrup*] 5 ml PO QID PRN #1 bottle 06/03/21 Levothyroxine Sodium [Levothyroxine] 75 mcg PO DAILY #30 capsule 06/03/21 Metoprolol Tartrate [Lopressor*] 12.5 mg PO BID 6AM 6PM #60 tab 06/03/21 Pravastatin [Pravachol*] 40 mg PO DAILY 06/03/21 Thiamine HCl [Vitamin B-1*] 100 mg PO BID #60 tablet 06/03/21 Zinc Sulfate [Zinc Sulfate*] 220 mg PO DAILY #30 cap 06/03/21 predniSONE [Prednisone*] 20 mg PO SEECOM #21 tab 06/03/21 Followup: Humberto Naranjo, [Primary Care Provider] -
[2021-06-08] MEDS: THIAMINE HCL 100 MG TABLET PO SCH ×2 (07:50→22:04)
[2021-06-08] MEDS: FOLIC ACID 1 MG TABLET PO SCH (07:50)
[2021-06-08] MEDS: VITAMIN D 1000 UNIT TAB PO SCH (07:50)
[2021-06-08] MEDS: LACTOBACILLUS/ACIDOPHILUS TAB PO SCH ×2 (07:50→22:05)
[2021-06-08] MEDS: ASPIRIN EC 81 MG TAB PO SCH (07:50)
[2021-06-08] MEDS: ZINC SULFATE 220 MG CAP PO SCH (07:50)
[2021-06-08] MEDS: ENOXAPARIN 40 MG/0.4 ML SQ SCH (07:51)
[2021-06-08] MEDS: FAMOTIDINE 20 MG TAB PO SCH ×2 (07:51→22:04)
[2021-06-08] MEDS: ASCORBIC ACID 500 MG TABLET PO SCH ×4 (07:51→22:04)
[2021-06-08] MEDS: FLUTICASONE 50MCG NASAL SPRAY NAS SCH ×2 (07:51→21:00)
[2021-06-08 13:09] LABS: Blood Morphology Comment NOT SEEN (NOT SEEN); Platelet Estimate ADEQ
--- NOTE | 2021-06-08 14:09 | P.PN ---
Subjective Date of Service: 06/08/21 Primary Care Provider: Dr. Naranjo; Cardiology-Dr. Fierro Chief Complaint: Poor appetite, shortness of breath Subjective: Improving (Patient stable on 4 L.) Physical Examination - Vital Signs Temperature: 98 F Blood Pressure: 105/58 Pulse: 62 Respirations: 21 Pulse Ox (%): 90 Assessment & Plan Discharge Plan: Other (Inpatient rehab) Plan to discharge in: 24 Hours Physician Review Additional Text: COVID: Positive, unvaccinated Chest x-ray 06/02/2021: COMPARISON: October 2015 TECHNIQUE: AP portable chest image was obtained 06/02/2021 9:09 am . FINDINGS: Focal airspace opacification is seen in the lower left lung field and there is some mild airspace opacification on the right. No failure or volume overload. Findings are consistent with a mild COVID-19 pneumonia. Heart and vasculature are normal. No measurable pleural effusion and no pneumothorax. No acute bony abnormality seen. No acute aortic findings suspected. IMPRESSION: Mild COVID-19 pneumonia pattern, most pronounced in the left base. CXR 06/04/2021: COMPARISON: Chest Single View dated 06/02/2021; CHEST PA AND LAT 2 VIEW dated 11/01/2015; CHEST PA AND LAT 2 VIEW dated 12/22/2014; CHEST PA AND LAT 2 VIEW dated 11/27/2012 FINDINGS: Widespread bilateral airspace disease with worsened aeration bilaterally though more prominent at the right lung base The heart size is within normal limits.No acute osseous abnormality. No significant pleural effusions or pneumothorax. IMPRESSION: Worsened aeration of the lungs which is concerning for multifocal pneumonia, including Covid-19. Physical Exam: GENERAL: Patient alert, cooperative. Oriented x3. Patient appears with poor oral intake. Skin dry. Currently on 4 L per nasal cannula VITAL SIGNS: Reviewed HEENT: Head is normocephalic and atraumatic. Extraocular muscles are intact. Pupils are equal, round, and reactive to light and accommodation. Nares appeared normal. Mouth is dry. Mucous membranes are moist. NECK: Supple. No carotid bruits. No lymphadenopathy or thyromegaly. LUNGS: Clear to auscultation. No crackles or wheezes are heard. Currently on 4 L per nasal cannula HEART: Regular rate and rhythm, no appreciable gallops, rubs, murmurs or extra heart sounds ABDOMEN: Soft, nontender, and nondistended. Positive bowel sounds. No hepatosplenomegaly was noted. EXTREMITIES: Without any cyanosis, clubbing, rash, lesions or peripheral edema. NEUROLOGIC: The patient is oriented to person, place and time. Strength and sensation are grossly intact. Face is symmetric. SKIN: Skin appears dry. Impression: Dyspnea secondary to bilateral Covid pneumonia with hypoxia, unvaccinated, recurrent admission Hypertension Hyperlipidemia GERD Hypothyroidism Elevated liver function Plan: Dyspnea secondary to bilateral Covid pneumonia with hypoxia, unvaccinated, recurrent admission: Patient continues to improve. Currently stable on 4 L per nasal cannula. Patient needs to be at least 10 days since the first Covid test done. This was done about 9 days ago as an outpatient. Inpatient rehab will not accept patient until the 10th day. Will consider inpatient rehab discharge tomorrow we will also look into sending patient [facility]. If accepted can be discharged as early as today. Will change steroids to oral. Continue vitamin supplementation. Venous Doppler negative. I will turn the service over to the hospitalist team tomorrow. I will go plan of care with him. Hypertension: Continue metoprolol 12.5 mg 1 pill twice daily. Hold if blood pressure systolic less than 110 or heart rate less than 60. Hyperlipidemia: Due to slight elevation in liver function will hold his pravastatin 10 mg daily. GERD: Continue with Pepcid 20 mg 1 pill twice daily Hypothyroidism: Patient was recently found to be supratherapeutic. His medication was decreased at the last discharge. We will continue with levothyroxine 75 mcg daily. This will need to be rechecked in 4 to 6 weeks. Elevated liver function: Liver function improved. Likely due to poor nutrition and Covid status. Will monitor liver function test. Code Status: Full Code DVT prophylaxis: Lovenox Advanced Care Planning-30 minutes: [facility] as early as today versus inpatient rehab tomorrow Time Spent Managing Pts Care (In Minutes): 55
--- NOTE | 2021-06-08 14:42 | P.DS ---
Admission Date: 06/04/21 Discharge Date: 06/08/21 Primary Care Provider: Dr. Naranjo; Cardiology-Dr. Fierro Disposition: TRANSFER TO INPATIENT REHAB Discharge Condition: GOOD Reason for Admission: Poor appetite, shortness of breath Consultations: Pulmonary-Dr. Marie Procedures: COVID: Positive, unvaccinated Chest x-ray 06/02/2021: COMPARISON: October 2015 TECHNIQUE: AP portable chest image was obtained 06/02/2021 9:09 am . FINDINGS: Focal airspace opacification is seen in the lower left lung field and there is some mild airspace opacification on the right. No failure or volume overload. Findings are consistent with a mild COVID-19 pneumonia. Heart and vasculature are normal. No measurable pleural effusion and no pneumo thorax. No acute bony abnormality seen. No acute aortic findings suspected. IMPRESSION: Mild COVID-19 pneumonia pattern, most pronounced in the left base. CXR 06/04/2021: COMPARISON: Chest Single View dated 06/02/2021; CHEST PA AND LAT 2 VIEW dated 11/01/2015; CHEST PA AND LAT 2 VIEW dated 12/22/2014; CHEST PA AND LAT 2 VIEW dated 11/27/2012 FINDINGS: Widespread bilateral airspace disease with worsened aeration bilaterally though more prominent at the right lung base The heart size is within normal limits.No acute osseous abnormality. No significant pleural effusions or pneumothorax. IMPRESSION: Worsened aeration of the lungs which is concerning for multifocal pneumonia, including Covid-19. Medical problem list Dyspnea secondary to bilateral Covid pneumonia with hypoxia, unvaccinated, recurrent admission Hypertension Hyperlipidemia GERD Hypothyroidism Elevated liver function Brief History of Present Illness: 65-year-old male with history of hypertension, hyperlipidemia, hypothyroidism, and GERD. Patient presented to the emergency room with increasing shortness of breath and poor oral intake. Patient recently diagnosed with COVID-19. He is unvaccinated. Patient was actually hospitalized then discharged on 06/03/2021. Patient was dehydrated at the time. Patient received IV fluids with IV steroids. The patient was discharged home with oxygen. Since that time his oxygen requirement was above 4 L. Patient has noticed increased fatigue, shortness of breath, poor intake. On the last hospitalization it was found out that his thyroid level was supratherapeutic. His medications was recently decreased. His blood pressure medication was also decreased. He came to the ER for worsening symptoms. In the ER patient was evaluated. Chest x-ray shows worsening aeration bilateral. White count normal at 9.8, hemoglobin 14. Sodium 135, potassium 4.3. BUN of 29, creatinine 0.9 with a GFR of 76. Glucose 131. AST 53. ALT 52. Due to the lack of beds the patient was to be transferred for admission. No beds available. Patient admitted to our facility to further address. Hospital Course: Patient presented with dyspnea secondary to bilateral Covid pneumonia with hypoxia. Patient unvaccinated. Patient with recent admission and sent home with home oxygen. Patient returned with worsening symptoms. The patient was hospitalized. His condition improved. Ferritin down to seven fifty-five. CRP 5.83. Patient stable on 4 L per nasal cannula. Venous Doppler unremarkable. Patient reports improvement with physical therapy. Hydration and oral intake improved. Patient evaluated by inpatient rehab. Patient has been accepted. At discharge patient will continue with oxygen to maintain sats above 93%. Currently stable on 4 L. This can be weaned off. At discharge patient will continue with prednisone 20 mg 1 pill twice daily for 7 days then 1 pill once daily for 7 days. The patient will continue with aspirin 81 mg daily. Patient may continue with vitamin C 500 mg 1 pill three times a day, vitamin D 2000 units 1 pill daily, thiamine 100 mg 1 pill twice daily, Pepcid 20 mg 1 pill twice daily, and zinc 220 mg daily. Patient will continue with ambulation, proning, and incentive spirometer. Patient will continue with therapy at inpatient rehab. Patient stable for discharge and transfer. Patient with hypertension. Patient takes metoprolol 12.5 mg 1 pill twice daily. Recommend to hold blood pressure medication if blood pressure systolic less then one fifty or heart rate less than sixty further adjustment can be done by his PCP. Patient with hyperlipidemia. Due to recent elevation in liver function will recommend to hold pravastatin. Recommend to recheck labCMP in 1 week to monitor his progress. If this improves his medication can be restarted in the future. This can be further addressed by his PCP. Patient with GERD. At discharge patient will continue with Pepcid 20 mg 1 pill twice daily. Patient with hypothyroidism. Patient recently found to be supratherapeutic. His medication was decreased on the last hospitalization. At discharge patient will continue with levothyroxine 75 mcg daily. Recommend to recheck labTSH and free T4 in 4 to 6 weeks to further monitor and adjust medication. Patient with elevated liver function likely related to his poor nutrition and Covid status. Recommend to recheck labCMP in 1 to 2 weeks to monitor his progress. Vital Signs/Physical Exam: Temp Pulse Resp BP Pulse Ox 98 F 62 21 H 105/58 L 90 L 06/08/21 14:09 06/08/21 14:09 06/08/21 14:09 06/08/21 14:09 06/08/21 14:09 General: Alert, In no apparent distress, Oriented x3, Cooperative HEENT: Atraumatic Neck: Supple Respiratory: Clear to auscultation bilaterally, Other (Stable on 4 L) Cardiovascular: Normal pulses, Regular rate/rhythm Gastrointestinal: Normal bowel sounds, No ascites Musculoskeletal: No erythema, No tenderness, No warmth Integumentary: No tenderness/swelling, No erythema, No warmth, No cyanosis Neurological: Normal speech, Normal strength at 5/5 x4 extr, Normal tone Laboratory Data at Discharge: WBC 8.60 K/uL (4.3-10.9) 06/08/21 05:14 Hgb 13.3 g/dL (13.6-17.9) L 06/08/21 05:14 Hct 39.1 % (39.6-49.0) L 06/08/21 05:14 Plt Count 246 K/uL (152-406) D 06/08/21 05:14 PT 12.4 SECONDS (9.5-12.5) 06/04/21 11:10 INR 1.08 06/04/21 11:10 Sodium 137 mmol/L (136-145) 06/08/21 05:14 Potassium 4.0 mmol/L (3.5-5.1) 06/08/21 05:14 BUN 27 mg/dL (7-18) H 06/08/21 05:14 Creatinine 0.72 mg/dL (0.55-1.3) 06/08/21 05:14 Glucose 148 mg/dL (74-106) H 06/08/21 05:14 Magnesium 2.4 mg/dL (1.8-2.4) 06/08/21 05:14 Total Bilirubin 0.7 mg/dL (0.2-1.0) 06/08/21 05:14 AST 34 U/L (15-37) 06/08/21 05:14 ALT 82 U/L (12-78) H 06/08/21 05:14 Alkaline Phosphatase 48 U/L (45-117) 06/08/21 05:14 Home Medications: Ascorbic Acid [Vitamin C*] 500 mg PO TID #90 tablet 06/03/21 Cholecalciferol (Vitamin D3) [Vitamin D 1000 Iu Tab*] 2,000 unit PO DAILY #60 tab 06/03/21 Guaifen W/Codeine Syrup [ROBITUSSIN A-C Syrup*] 5 ml PO QID PRN #1 bottle 06/03/21 Levothyroxine Sodium [Levothyroxine] 75 mcg PO DAILY #30 capsule 06/03/21 Metoprolol Tartrate [Lopressor*] 12.5 mg PO BID 6AM 6PM #60 tab 06/03/21 Thiamine HCl [Vitamin B-1*] 100 mg PO BID #60 tablet 06/03/21 Zinc Sulfate [Zinc Sulfate*] 220 mg PO DAILY #30 cap 06/03/21 predniSONE [Prednisone*] 20 mg PO SEECOM #21 tab 06/03/21 Physician Discharge Instructions: Patient presented with dyspnea secondary to bilateral Covid pneumonia with hypoxia. Patient unvaccinated. Patient with recent admission and sent home with home oxygen. Patient returned with worsening symptoms. The patient was hospitalized. His condition improved. Ferritin down to seven fifty-five. CRP 5.83. Patient stable on 4 L per nasal cannula. Venous Doppler unremarkable. Patient reports improvement with physical therapy. Hydration and oral intake improved. Patient evaluated by inpatient rehab. Patient has been accepted. At discharge patient will continue with oxygen to maintain sats above 93%. Currently stable on 4 L. This can be weaned off. At discharge patient will continue with prednisone 20 mg 1 pill twice daily for 7 days then 1 pill once daily for 7 days. The patient will continue with aspirin 81 mg daily. Patient may continue with vitamin C 500 mg 1 pill three times a day, vitamin D 2000 units 1 pill daily, thiamine 100 mg 1 pill twice daily, Pepcid 20 mg 1 pill twice daily, and zinc 220 mg daily. Patient will continue with ambulation, proning, and incentive spirometer. Patient will continue with therapy at inpatient rehab. Patient stable for discharge and transfer. Patient with hypertension. Patient takes metoprolol 12.5 mg 1 pill twice daily. Recommend to hold blood pressure medication if blood pressure systolic less then one fifty or heart rate less than sixty further adjustment can be done by his PCP. Patient with hyperlipidemia. Due to recent elevation in liver function will recommend to hold pravastatin. Recommend to recheck labCMP in 1 week to monitor his progress. If this improves his medication can be restarted in the future. This can be further addressed by his PCP. Patient with GERD. At discharge patient will continue with Pepcid 20 mg 1 pill twice daily. Patient with hypothyroidism. Patient recently found to be supratherapeutic. His medication was decreased on the last hospitalization. At discharge patient will continue with levothyroxine 75 mcg daily. Recommend to recheck labTSH and free T4 in 4 to 6 weeks to further monitor and adjust medication. Patient with elevated liver function likely related to his poor nutrition and Covid status. Recommend to recheck labCMP in 1 to 2 weeks to monitor his progress. Diet: AHA Activity: Fall precautions Followup: Humberto Naranjo DO [Primary Care Provider] - Time spent managing pt's care (in minutes): 55
[2021-06-08] MEDS: predniSONE 20 MG TAB PO SCH ×2 (16:24→22:09)
[2021-06-08 20:43] VITALS: BMI 28.3
[2021-06-08 23:14] VITALS: O2SAT 91
[2021-06-09 00:35] VITALS: BP 153/74; TEMP 98.5
== END 2021-06-08 23:00 | DRG 177 ==
LOC: ER 08:58 → ERHOLD 12:59 → 4TH 06-05 15:57
PROVIDERS: ADMIT Family Medicine; ATTEND Family Medicine
DX: U07.1 COVID-19 (principal); J12.82 Pneumonia due to coronavirus disease 2019; R09.02 Hypoxemia; I10 Essential (primary) hypertension; E78.5 Hyperlipidemia, unspecified; K21.9 Gastro-esophageal reflux disease without esophagitis; E03.9 Hypothyroidism, unspecified; R79.89 Other specified abnormal findings of blood chemistry
CPT/HCPCS: 36415; 71045; 80048; 80053; 80076; 82728; 83735; 83880; 84484; 85025; 85610; 86140; 93005; 93970; 94010; 96374; 97110; 97116; 97161; 99284; J1100; J1650; J2920; J7512

== ENCOUNTER 2024-10-24 09:20 | Emergency (ER) | payer OTHER ==
--- NOTE | 2024-10-24 10:25 | RAD REPORT ---
Procedure: Chest Single View HISTORY: Shortness of breath COMPARISON: January 2024 FINDINGS: The lungs appear clear of acute infiltrate. No significant pleural effusion noted. The heart is normal size. IMPRESSION: No acute abnormality is displayed.
[2024-10-24] MEDS ORDERED: NA CHLORIDE 0.9% 1,000 ML ONE (10:37)
[2024-10-24] MEDS ORDERED: IPRATROPIUM BROM 0.5MG/2.5ML ONE (11:06)
[2024-10-24] MEDS ORDERED: ALBUTEROL 2.5 MG/3 ML NEB SOL ONE (11:06)
[2024-10-24] MEDS ORDERED: ONDANSETRON 4 MG/2 ML VIAL ONE (11:07)
[2024-10-24 12:08] LABS: Absolute Lymphocytes (CBC) 1.7 K/uL (0.7-4.9); Absolute Monocytes 1.1 K/uL (0.1-1.3); Absolute Neutrophil 6.9 K/uL (1.8-8.0); Basophils % 0.3 % (0-1.3); Eosinophils % 0.5 % (0-4.4); Hematocrit 39.3 % (39.6-49.0); Hemoglobin 13.3 g/dL (13.6-17.9); Lymphocytes % 17.5 % (15.3-44.8); MCH 28.3 pg (27.0-35.0); MCV 83.3 fL (80-100); MPV 9.1 fL (7.6-11.3); Monocytes % 10.8 % (3.3-12.3); Neutrophils % 70.9 % (41.7-73.7); Nucleated Red Blood Cells % 0.1 % (0-0); Platelets 231 thou/uL (152-406); RBC Red Blood Cell Count 4.71 M/uL (4.33-5.43)
[2024-10-24 12:10] LABS: D-Dimer 0.537 FEUug/mL (0-0.500); PT Prothrombin Time 13.2 SECONDS (9.4-12.5); Protime INR 1.18
[2024-10-24 12:23] LABS: Albumin 3.1 g/dL (3.4-5.0); Albumin/Globulin Ratio 0.8 (1.1-1.8); Bilirubin Direct 0.2 mg/dL (0-0.2); Bilirubin Indirect, Calculated 0.5 mg/dL (0.2-0.8); Bilirubin Total 0.7 mg/dL (0.2-1.0); Globulin 3.7 g/dL (2.3-3.5); Magnesium 2.4 mg/dL (1.6-2.4); Protein, Total 6.8 g/dL (6.4-8.2)
--- NOTE | 2024-10-24 13:01 | RAD REPORT ---
EXAMINATION: US bilateral LOWER EXTREMITY VENOUS DOPPLER CLINICAL INDICATION: Leg pain TECHNIQUE: Sonographic evaluation of the veins of the lower extremity bilaterally formed.Grayscale, c olor and spectral analysis performed on all vessels COMPARISON: 2020 FINDINGS: The common femoral, superficial femoral, greater saphenous, popliteal and posterior tibial veins bila terally are compressible and demonstrate augmentation. Doppler demonstrates good flow. IMPRESSION: No evidence of deep venous thrombosis involving either lower extremity
--- NOTE | 2024-10-24 13:29 | RAD REPORT ---
EXAMINATION: CTA CHEST PE CLINICAL INDICATION: Shortness of breath TECHNIQUE: 100 cc 370 Isovue administered intravenously. This examination was performed according to an angiographic protocol with 3D post-processing. This involves 3D reconstructions, MIPs, volume rendered images and/or shaded surface rendering. One or more of the following dose reduction techniqu es were used: Automated exposure control, adjustment of the mA and/or kV according to patient size, and/or iterative reconstruction. Unless otherwise specified, incidental findings do not require dedic ated imaging follow-up. [id number]. COMPARISON: No prior exam. FINDINGS: A pulmonary embolus is not seen. An aortic aneurysm not noted. No pleural effusion. No pericardial effusion. Mild to moderate patchy opacities within predominantly the lower lobes. IMPRESSION: No evidence of a pulmonary embolism Mild to moderate bilateral patchy opacities within the lower lobes bilaterally probably infection
[2024-10-24] MEDS ORDERED: METHYLPREDNISOLONE 125 MG INJ ONE (13:30)
[2024-10-24] MEDS ORDERED: predniSONE 20 MG TAB ONE (13:30)
[2024-10-24] MEDS ORDERED: AZITHROMYCIN 250 MG TAB ONE ×2 (13:30→14:07)
[2024-10-24] MEDS ORDERED: LEVALBUTEROL 1.25 MG/3 ML NEB ONE (13:31)
--- NOTE | 2024-10-24 13:43 | ER ---
Nurse's Notes [facility] Name: Ismael Kennedy Age: 69 yrs Sex: Male : 1955 Arrival Date: 10/24/2024 Time: 09:20 Bed 19 Private MD: Diagnosis: Dyspnea;Acute upper respiratory infection, unspecified;Influenza due to identified novel influenza A virus with other respiratory manifestations;Cough;Pneumonia due to other specified bacteria-BILATERAL LOWER LOBE Presentation: 10/24 10:09 Chief complaint: Patient states: COUGH AND HEADACHE ONSET 10/16. PT WAS SEEN AT the [facility] WAS DIAGNOSED WITH FLU A. PT STATES THAT HIS COUGH HAS NOT IMPROVED. PT ALSO REPORTS HAVING SOME SHORTNESS OF BREATH THIS MORNING. Coronavirus screen: Client denies travel out of the [place] in the last 14 days. Ebola Screen: Patient denies travel to an Ebola-affected area in the 21 days before illness onset. Initial Sepsis Screen: Does the patient meet any 2 criteria? No. Patient's initial sepsis screen is negative. Does the patient have a suspected source of infection? No. Patient's initial sepsis screen is negative. Risk Assessment: Do you want to hurt yourself or someone else? Patient reports no desire to harm self or others. Onset of symptoms was October 16, 2024. 10:09 Method Of Arrival: Ambulatory 10 10:09 Acuity: AMALIA 3 cm10 Triage Assessment: 10:13 General: Appears in no apparent distress. uncomfortable, Behavior is calm, cooperative. cm10 Neuro: No deficits noted. Level of Consciousness is awake, alert, obeys commands, Oriented to person, place, time, situation, Appropriate for age. Respiratory: No deficits noted. Reports shortness of breath cough that is dry, persistent Airway is patent Respiratory effort is even, unlabored, Respiratory pattern is regular, symmetrical. 11:30 Respiratory: Onset: The symptoms/episode began/occurred gradually, the patient has mild ph shortness of breath. Historical: - Allergies: 10:11 No Known Allergies; cm10 - PMHx: 10:11 Hypercholesterolemia; Moody's Esophagus; Hypothyroidism; Hypertensive disorder; cm10 Atrial fibrillation; - Immunization history:: Adult Immunizations up to date. - Infectious Disease History:: Denies. - Social history:: Smoking status: Patient denies any tobacco usage or history of. Screenin:[address] [facility] ED Fall Risk Assessment (Adult) History of falling in the last 3 months, ph including since admission No falls in past 3 months (0 pts) Confusion or Disorientation No (0 pts) Intoxicated or Sedated No (0 pts) Impaired Gait No (0 pts) Mobility Assist Device Used No (0 pt) Altered Elimination No (0 pt) Score/Fall Risk Level 0 - 2 = Low Risk Oriented to surroundings, Maintained a safe environment, Hourly rounding (assess needs \T\ fall precautionary measures) done. Abuse screen: Denies threats or abuse. Denies injuries from another. Abuse screen:. Nutritional screening: No deficits noted. Tuberculosis screening: No symptoms or risk factors identified. Assessment: 11:00 General: Appears in no apparent distress. well groomed, Behavior is calm, cooperative, ph appropriate for age. Pain: Denies pain. Neuro: Level of Consciousness is awake, alert, obeys commands, Oriented to person, place, time, situation. Cardiovascular: Reports shortness of breath, Capillary refill < 3 seconds in bilateral fingers Patient's skin is warm and dry. Rhythm is regular. Respiratory: Reports shortness of breath at rest cough that is non-productive, Airway is patent Respiratory effort is even, unlabored, Respiratory pattern is regular, symmetrical, Breath sounds are clear bilaterally. GI: Reports nausea, Patient currently denies diarrhea, vomiting. Derm: Skin is pink, warm \T\ dry. 12:30 Reassessment: Patient appears in no apparent distress at this time. Patient and/or ph family updated on plan of care and expected duration. Pain level reassessed. Patient is alert, oriented x 3, equal unlabored respirations, skin warm/dry/pink. 14:18 Reassessment: Patient appears in no apparent distress at this time. Patient and/or ph family updated on plan of care and expected duration. Pain level reassessed. Patient is alert, oriented x 3, equal unlabored respirations, skin warm/dry/pink. D/C pending completion of IV antibiotics. Vital Signs: 10:09 BP 118 / 72; Pulse 63; Resp 17; Temp 98.2; Pulse Ox 100% on R/A; Weight 99.79 kg (R); cm10 Height 6 ft. 3 in. (R); Pain 5/10; 11:00 BP 123 / 72; Pulse 89; Resp 20; Pulse Ox 97% on R/A; ph 12:00 BP 132 / 78; Pulse 85; Resp 18; Pulse Ox 99% on R/A; ph 12:53 BP 122 / 70; Pulse 63; Resp 18; Pulse Ox 98% on R/A; ph 14:30 BP 126 / 72; Pulse 71; Resp 18; Temp 97.8; Pulse Ox 99% on R/A; ph 10:09 Body Mass Index 27.50 (99.79 kg, 190.5 cm) cm10 10:09 Pain Scale: Adult cm10 ED Course: 09:23 Patient arrived in ED. ra3 09:31 Raghu Prasad MD is Attending Physician. yesika 10:00 XRAY Chest (1 view) In Process Unspecified. EDMS 10:11 Triage completed. cm10 10:13 Arm band placed on right wrist. Patient placed in waiting room. cm10 11:04 Mercedes Trejo, RN is Primary Nurse. ph 11:30 Initial lab(s) drawn, by me, sent to lab. Flu and/or RSV swab sent to lab. Inserted ph saline lock: 20 gauge in right antecubital area, using aseptic technique. Blood collected. Flushed with 10 mL NS. 12:52 Patient has correct armband on for positive identification. Bed in low position. Call ph light in reach. Side rails up X 1. Client placed on continuous cardiac and pulse oximetry monitoring. NIBP monitoring applied. bottle sorter on. Door closed. Noise minimized. Warm blanket given. 12:57 US Extremity Venous W Compression Chele In Process Unspecified. EDMS 13:21 CT Chest For PE Angio In Process Unspecified. EDMS 13:42 Demetri Marie MD is Referral Physician. yesika 15:12 No provider procedures requiring assistance completed. IV discontinued, intact, ph bleeding controlled, No redness/swelling at site. Pressure dressing applied. Administered Medications: 11:15 Drug: Levalbuterol Inhalation 2.5 mg Inhalation once Route: Inhalation; ph 11:30 Follow up: Response: No adverse reaction ph 11:15 Drug: Ipratropium Inhalation Aerosol 0.5 mg Inhalation once Route: Inhalation; ph 11:30 Follow up: Response: No adverse reaction ph 11:30 Drug: NS 0.9% IV 1000 ml IV at 1000 ml once; to be given as a bolus over 60 minutes ph Route: IV; Rate: 1000 ml; Site: right antecubital; 12:45 Follow up: Response: No adverse reaction; IV Status: Completed infusion; IV Intake: ph 1000ml 13:48 Drug: Rocephin IV 1 grams IV at per protocol once; Given slow IV push per pharmacy ph instructions Route: IV; Rate: per protocol; Site: right antecubital; 14:20 Follow up: Response: No adverse reaction; IV Status: Completed infusion ph 13:48 Drug: predniSONE PO 60 mg PO once Route: PO; ph 14:20 Follow up: Response: No adverse reaction ph 13:49 Drug: AZITHromycin PO 500 mg PO once Route: PO; ph 14:20 Follow up: Response: No adverse reaction ph 13:49 Drug: Levalbuterol Inhalation 1.25 mg Inhalation once Route: Inhalation; ph 14:20 Follow up: Response: No adverse reaction ph 14:18 Drug: AZITHromycin PO 500 mg PO once; YES REPEAT Route: PO; ph 15:00 Follow up: Response: No adverse reaction ph 14:19 Drug: MethylPrednisoLONE IVP 125 mg IVP once Route: IVP; Site: right antecubital; ph 14:45 Follow up: Response: No adverse reaction ph 14:19 Drug: Rocephin IV 1 grams IV at per protocol once; Given slow IV push per pharmacy ph instructions Route: IV; Rate: per protocol; Site: right antecubital; 15:00 Follow up: Response: No adverse reaction; IV Status: Completed infusion ph 14:19 Drug: Cefdinir PO 300 mg PO once Route: PO; ph 15:00 Follow up: Response: No adverse reaction ph 14:20 Drug: Tussionex Pennkinetic ER PO Suspension 5 ml PO once Route: PO; ph 15:00 Follow up: Response: No adverse reaction ph Medication: 12:53 VIS not applicable for this client. ph Intake: 12:45 IV: 1000ml; Total: 1000ml. ph Outcome: 13:42 Discharge ordered by . yesika 15:12 Patient left the ED. ph 15:12 Discharged to home ambulatory, with significant other, ph 15:12 Condition: stable 15:12 Discharge instructions given to patient, significant other, Instructed on discharge instructions, follow up and referral plans. medication usage, Demonstrated understanding of instructions, follow-up care, medications, Prescriptions given X 6 Signatures: Dispatcher [employer] EDRaghu Perkins MD MD cha Hall, Patricia, RN RN ph Ira Coates RN RN cm10 Karley Machado ra3 Corrections: (The following items were deleted from the chart) 12:52 11:00 Inserted saline lock: 20 gauge in right antecubital area, using aseptic ph technique. Blood collected. Flushed with 10 mL NS ph 12:52 11:00 Initial lab(s) drawn, by me, sent to lab. Flu and/or RSV swab sent to lab. ph ph
--- NOTE | 2024-10-24 13:43 | EDPHYS ---
Physician Documentation [facility] Name: Ismael Kennedy Age: 69 yrs Sex: Male : 1955 Arrival Date: 10/24/2024 Time: 09:20 Bed 19 Private MD: ED Physician Raghu Prasad HPI: 10/24 12:22 This 69 yrs old Male presents to ER via Ambulatory with complaints of yesika Breathing Difficulty. 12:22 The patient has shortness of breath at rest, with light activity. Onset: The yesika symptoms/episode began/occurred this morning. Duration: The symptoms are continuous, but are steadily getting better. The patient's shortness of breath is aggravated by coughing, is alleviated by nothing. Associated signs and symptoms: The patient has no apparent associated signs or symptoms. The patient has not experienced similar symptoms in the past. Historical: - Allergies: 10:11 No Known Allergies; cm10 - PMHx: 10:11 Hypercholesterolemia; Moody's Esophagus; Hypothyroidism; Hypertensive disorder; cm10 Atrial fibrillation; - Immunization history:: Adult Immunizations up to date. - Infectious Disease History:: Denies. - Social history:: Smoking status: Patient denies any tobacco usage or history of. ROS: 12:22 Constitutional: Negative for fever, chills, and weight loss, Eyes: Negative for injury, yesika pain, redness, and discharge, ENT: Negative for injury, pain, and discharge, Neck: Negative for injury, pain, and swelling, Cardiovascular: Negative for chest pain, palpitations, and edema, Abdomen/GI: Negative for abdominal pain, nausea, vomiting, diarrhea, and constipation, Back: Negative for injury and pain, : Negative for injury, bleeding, discharge, and swelling, MS/Extremity: Negative for injury and deformity, Skin: Negative for injury, rash, and discoloration, Neuro: Negative for headache, weakness, numbness, tingling, and seizure, Psych: Negative for depression, anxiety, suicide ideation, homicidal ideation, and hallucinations, Allergy/Immunology: Negative for hives, rash, and allergies, Endocrine: Negative for neck swelling, polydipsia, polyuria, polyphagia, and marked weight changes, Hematologic/Lymphatic: Negative for swollen nodes, abnormal bleeding, and unusual bruising, 12:22 Respiratory: Positive for cough, shortness of breath, on exertion. 12:22 MS/extremity: Negative for acute changes, injury or acute deformity, swelling, tenderness, Exam: 12:22 Constitutional: This is a well developed, well nourished patient who is awake, alert, yesika and in no acute distress. Head/Face: Normocephalic, atraumatic. Eyes: Pupils equal round and reactive to light, extra-ocular motions intact. Lids and lashes normal. Conjunctiva and sclera are non-icteric and not injected. Cornea within normal limits. Periorbital areas with no swelling, redness, or edema. ENT: Nares patent. No nasal discharge, no septal abnormalities noted. Tympanic membranes are normal and external auditory canals are clear. Oropharynx with no redness, swelling, or masses, exudates, or evidence of obstruction, uvula midline. Mucous membranes moist. Neck: Trachea midline, no thyromegaly or masses palpated, and no cervical lymphadenopathy. Supple, full range of motion without nuchal rigidity, or vertebral point tenderness. No Meningismus. Chest/axilla: Normal chest wall appearance and motion. Nontender with no deformity. No lesions are appreciated. Respiratory: Lungs have equal breath sounds bilaterally, clear to auscultation and percussion. No rales, rhonchi or wheezes noted. No increased work of breathing, no retractions or nasal flaring. Back: No spinal tenderness. No costovertebral tenderness. Full range of motion. Male : Normal genitalia with no discharge or lesions. Skin: Warm, dry with normal turgor. Normal color with no rashes, no lesions, and no evidence of cellulitis. MS/ Extremity: Pulses equal, no cyanosis. Neurovascular intact. Full, normal range of motion., bilateral aka Neuro: Awake and alert, GCS 15, oriented to person, place, time, and situation. Cranial nerves II-XII grossly intact. Motor strength 5/5 in all extremities. Sensory grossly intact. Cerebellar exam normal. Normal gait. Psych: Awake, alert, with orientation to person, place and time. Behavior, mood, and affect are within normal limits. 12:22 Cardiovascular: Rate: normal, Rhythm: regular, Pulses: Pulses are 4+ in bilateral radial, brachial, femoral, popliteal, posterior tibial and and dorsalis pedis arteries.. Heart sounds: normal, Edema: is not appreciated, JVD: is not appreciated, 12:22 ECG was reviewed by the Attending Physician. 12:22 Musculoskeletal/extremity: DVT Exam: No signs of deep vein thrombosis. no pain, no swelling, no tenderness, negative Homans' sign noted on exam, no appreciated bluish discoloration, no erythema, no increased warmth, Vital Signs: 10:09 BP 118 / 72; Pulse 63; Resp 17; Temp 98.2; Pulse Ox 100% on R/A; Weight 99.79 kg (R); cm10 Height 6 ft. 3 in. (R); Pain 5/10; 11:00 BP 123 / 72; Pulse 89; Resp 20; Pulse Ox 97% on R/A; ph 12:00 BP 132 / 78; Pulse 85; Resp 18; Pulse Ox 99% on R/A; ph 12:53 BP 122 / 70; Pulse 63; Resp 18; Pulse Ox 98% on R/A; ph 14:30 BP 126 / 72; Pulse 71; Resp 18; Temp 97.8; Pulse Ox 99% on R/A; ph 10:09 Body Mass Index 27.50 (99.79 kg, 190.5 cm) cm10 10:09 Pain Scale: Adult cm10 MDM: 09:31 Medical Screening Exam initiated yesika 10:19 Medical Screening Exam initiated yesika 12:25 Differential diagnosis: Anemia Anxiety Reaction asthma, Bronchitis CHF exacerbation, yesika obstructed airway, tracheal injury, bronchitis, flu, URI, Myocardial Infarction pneumonia, pulmonary edema, Pulmonary Embolism reactive airway disease, Sepsis Unstable Angina. Antibiotic administration: The patient is discharged and will get outpatient antibiotics, Zithromax. Immunization status: Pneumococcal vaccine: Influenza vaccine: Data reviewed: vital signs, nurses notes, lab test result(s), EKG, radiologic studies, CT scan, doppler, plain films. Consideration of Admission/Observation Escalation of care including admission/observation considered. I considered the following discharge prescriptions or medication management in the emergency department Medications were administered in the Emergency Department. See MAR. Independent interpretation of the following test(s) in the Emergency Department EKG: See my EKG interpretation above. Test considered but Not performed: Ultrasound NO 2 D ECHO. Historians other than the Patient: Spouse/Significant Other: WELL INFORMED. Care significantly affected by the following chronic conditions: Hypertension, A FIB, BARRETTS ESO, HYPOTHYROID. Counseling: I had a detailed discussion with the patient and/or guardian regarding the historical points, exam findings, and any diagnostic results supporting the discharge/admit diagnosis, lab results, radiology results, the need for outpatient follow up, for definitive care, a family practitioner. 10/24 09:32 Order name: Basic Metabolic Panel; Complete Time: 12:35 [facility] 10/24 09:32 Order name: CBC with Diff; Complete Time: 12:11 [facility] 10/24 09:32 Order name: D-Dimer; Complete Time: 12:11 [facility] 10/24 09:32 Order name: LFT's; Complete Time: 12:35 [facility] 10/24 09:32 Order name: Magnesium; Complete Time: 12:35 [facility] 10/24 09:32 Order name: NT PRO-BNP; Complete Time: 12:35 [facility] 10/24 09:32 Order name: PT-INR; Complete Time: 12:11 [facility] 10/24 09:32 Order name: Troponin HS; Complete Time: 12:35 [facility] 10/24 09:32 Order name: Urinalysis w/ reflexes 10/24 09:32 Order name: Flu; Complete Time: 13:08 [facility] 10/24 09:32 Order name: XRAY Chest (1 view); Complete Time: 11:12 10/24 12:12 Order name: CT Chest For PE Angio; Complete Time: 13:41 [facility] 10/24 12:12 Order name: US Extremity Venous W Compression Chele; Complete Time: 13:08 [facility] 10/24 13:43 Order name: INCENTIVE SPIROMETRY [facility] 10/24 09:32 Order name: EKG; Complete Time: 09:33 10/24 09:32 Order name: Cardiac monitoring; Complete Time: 12:21 [facility] 10/24 09:32 Order name: EKG - Nurse/Tech; Complete Time: 12:21 yesika 10/24 09:32 Order name: IV Saline Lock; Complete Time: 12:21 [facility] 10/24 09:32 Order name: Labs collected and sent; Complete Time: 12:21 [facility] 10/24 09:32 Order name: O2 Per Protocol; Complete Time: 12:21 [facility] 10/24 09:32 Order name: O2 Sat Monitoring; Complete Time: 12:21 [facility] EC:22 Rate is 59 beats/min. Rhythm is regular. QRS [place] is Normal. AR interval is normal. QRS yesika interval is normal. QT interval is normal. No Q waves. T waves are Normal. No ST changes noted. Clinical impression: NSR w/ Non-specific ST/T Changes and No evidence of ischemia. Interpreted by me. Reviewed by me. Administered Medications: 11:15 Drug: Levalbuterol Inhalation 2.5 mg Inhalation once Route: Inhalation; ph 11:30 Follow up: Response: No adverse reaction ph 11:15 Drug: Ipratropium Inhalation Aerosol 0.5 mg Inhalation once Route: Inhalation; ph 11:30 Follow up: Response: No adverse reaction ph 11:30 Drug: NS 0.9% IV 1000 ml IV at 1000 ml once; to be given as a bolus over 60 minutes ph Route: IV; Rate: 1000 ml; Site: right antecubital; 12:45 Follow up: Response: No adverse reaction; IV Status: Completed infusion; IV Intake: ph 1000ml 13:48 Drug: Rocephin IV 1 grams IV at per protocol once; Given slow IV push per pharmacy ph instructions Route: IV; Rate: per protocol; Site: right antecubital; 14:20 Follow up: Response: No adverse reaction; IV Status: Completed infusion ph 13:48 Drug: predniSONE PO 60 mg PO once Route: PO; ph 14:20 Follow up: Response: No adverse reaction ph 13:49 Drug: AZITHromycin PO 500 mg PO once Route: PO; ph 14:20 Follow up: Response: No adverse reaction ph 13:49 Drug: Levalbuterol Inhalation 1.25 mg Inhalation once Route: Inhalation; ph 14:20 Follow up: Response: No adverse reaction ph 14:18 Drug: AZITHromycin PO 500 mg PO once; YES REPEAT Route: PO; ph 15:00 Follow up: Response: No adverse reaction ph 14:19 Drug: MethylPrednisoLONE IVP 125 mg IVP once Route: IVP; Site: right antecubital; ph 14:45 Follow up: Response: No adverse reaction ph 14:19 Drug: Rocephin IV 1 grams IV at per protocol once; Given slow IV push per pharmacy ph instructions Route: IV; Rate: per protocol; Site: right antecubital; 15:00 Follow up: Response: No adverse reaction; IV Status: Completed infusion ph 14:19 Drug: Cefdinir PO 300 mg PO once Route: PO; ph 15:00 Follow up: Response: No adverse reaction ph 14:20 Drug: Tussionex Pennkinetic ER PO Suspension 5 ml PO once Route: PO; ph 15:00 Follow up: Response: No adverse reaction ph Disposition Summary: 10/24/24 13:42 Discharge Ordered Notes: Location: Home [facility] Problem: new [facility] Symptoms: have improved yesika Condition: Stable yesika Diagnosis - Dyspnea yesika - Acute upper respiratory infection, unspecified yesika - Influenza due to identified novel influenza A virus with other respiratory [facility] manifestations - Cough yesika - Pneumonia due to other specified bacteria - BILATERAL LOWER LOBE yesika Followup: yesika - With: Private Physician - When: 2 - 3 days - Reason: Recheck today's complaints, Continuance of care, Re-evaluation by your physician Followup: yesika - With: Demetri Marie MD - When: 2 - 3 days - Reason: Recheck today's complaints, Re-evaluation by your physician Discharge Instructions: - Discharge Summary Sheet yesika - Influenza, Adult yesika - Community-Acquired Pneumonia, Adult yesika - Upper Respiratory Infection, Adult yesika - Viral Respiratory Infection [facility] - Cool Mist Vaporizer [facility] - How to Use an Incentive Spirometer yesika - Upper Respiratory Infection, Adult, [id number] yesika - Community-Acquired Pneumonia, Adult, [id number] yesika - Influenza, Adult, [id number] yesika - Cough, Adult, [id number] yesika - Aspirin and Your Heart [facility] - Cough, Adult [facility] Forms: - Medication Reconciliation Form [facility] - Antibiotic Education [facility] - Prescription Opioid Use [facility] - Patient Portal Instructions [facility] - Leadership Thank You Letter [facility] Prescriptions: - albuterol sulfate 90 mcg/actuation Inhalation HFA Aerosol Inhaler - inhale 2 inhalation INHALATION route every 4 to 6 hours as needed for shortness yesika of breath or wheezing; 1 unit; Refills: 0, Product Selection Permitted - cefdinir 300 mg Oral capsule - take 1 capsule ORAL route 2 times per day for 10 days; 20 capsule; Refills: 0, [facility] Product Selection Permitted - Protonix 40 mg Oral Tablet - take 1 tablet ORAL route once daily; 30 tablet; Refills: 0, Product Selection [facility] Permitted - Prednisone 20 mg Oral tablet - take 2 tablets ORAL route once daily for 3 days BEGIN 10/25/24; 6 tablet; [facility] Refills: 0, Product Selection Permitted - Guaifenesin AC 10-100 mg/5 mL Oral liquid - take 7.5 milliliter ORAL route every 4-6 hours As needed; 160 milliliter; yesika Refills: 0, Product Selection Permitted - Zithromax 500 mg Oral Tablet - take 1 tablet ORAL route once daily for 5 days; 5 tablet; Refills: 0, Product [facility] Selection Permitted Signatures: Dispatcher [employer] Raghu Avitia, Mercedes Tracy MD, cha, RN RN ph Ira Coates RN RN cm10 Corrections: (The following items were deleted from the chart) 12:12 12:12 Extrem Venous W Compression [id number]+[id number] ordered. EDMS EDMS
[2024-10-24 13:47] LABS: Specific Gravity 1.028 (1.005-1.030); Urine Bilirubin NEGATIVE (Negative); Urine Blood Negative (Negative); Urine Clarity Clear (Clear); Urine Color Light-Yellow (Yellow); Urine Glucose NEGATIVE (Negative); Urine Ketones NEGATIVE (Negative); Urine Microscopic Reflex YN NO UMIC; Urine Nitrite NEGATIVE (Negative); Urine Protein NEGATIVE (Negative); Urine Urobilinogen Normal (Normal)
[2024-10-24] MEDS ORDERED: NA CHLORIDE 0.9% 50 ML ONE (14:07)
[2024-10-24] MEDS ORDERED: HYDROCODONE/CHLORPHEN 5 ML/OSYR ONE (14:07)
[2024-10-24] MEDS ORDERED: CEFTRIAXONE 1000 MG/VIAL ONE (14:07)
[2024-10-24] MEDS ORDERED: CEFDINIR 300 MG CAP PO ONE (14:10)
[2024-10-24 15:43] VITALS: TEMP 98.2
[2024-10-24 15:46] VITALS: BP 122/70; O2SAT 98
--- NOTE | 2024-11-01 11:13 | EKG ---
Test Date: 2024-10-24 Test Time: 10:27:41 Cleaning Specialist: AM MEASUREMENT RESULTS: Intervals: Rate: 59 FL: 174 QRSD: 102 QT: 404 QTc: 399 [place]: P: 46 FL: 174 QRS: 37 T: 61 INTERPRETIVE STATEMENTS: Sinus bradycardia RSR' or QR pattern in V1 suggests right ventricular conduction delay Borderline ECG Compared to ECG 10/01/2023 08:27:02 RSR' in V1 or V2 now present Sinus rhythm no longer present Electronically Signed On 11-01-24 11:02:02 ECCLESIASTICAL WORKER by Del Rolle
== END 2024-10-24 15:12 | disposition home or self-care (01) ==
LOC: ER 09:20
DX: J10.1 Influenza due to other identified influenza virus with other respiratory manifestations (principal); J15.8 Pneumonia due to other specified bacteria; R05.9 Cough, unspecified
CPT/HCPCS: 96365; 96361; 93005; 85025; 80048; 36415; 83735; 85610; 85379; 80076; 81003; 84484; 83880; 87804 ×2; 71275; 71045; 93970; 96375; 99285; Q9967; J7512; J7614; J7613; J7644; J2919; J2405; J7030; J0696